=== PATIENT | male | born 1960 | race Caucasian/White ===

== ENCOUNTER 2019-01-25 08:34 | Inpatient (IN) | payer MEDICARE, MEDICAID ==
[~2019-01-25] VITALS: Ht 167.6 cm; Wt 77.7 kg
[2019-01-25] VITALS (7 sets, daily range): BP systolic 115–156; BP diastolic 68–81
[~2019-01-25 08:34] MED LIST: CYCL10TA45 PO; DCS100C PO; HYDR-3720 PO; HYDR1TAB PO; METH4TAB PO; OXYC1TAB87 PO; RANI75TA30 PO
--- OUTSIDE RECORDS SUMMARY | 2019-01-25 08:42 | XMS REPORT | Encounter Summary ---
Author Author [facility] Organization [facility] Address Unknown Phone Unavailable Care Team Providers Care [employer] Dean Name Role Phone Carroll Arce RN Unavailable Dilma Nam APRN Unavailable Michael Phelps MD Unavailable Yelitza He Unavailable Unavailable Taryn Enciso RN Unavailable Unavailable Presley Dumont MD PCP Reason for Referral * Radiology Services (Routine) Referred By Contact Referred To Contact Status Reason Specialty Diagnoses / Procedures Dilma Nam APRN [address] [place] [address] [facility] Med [address] [place] [address] Authorized Radiology Diagnoses Right upper quadrant abdominal pain P rocedures CT ABD/PELV WO/W CONTRAST Reason for Visit * Reason Comments Other history of hepatitis C Encounter Details Care Team Description Date Type Department Dilma Nam APRN [address] [place], [place] [id number] History of hepatitis C (Primary Dx); Right upper quadrant abdominal pain 01/21/2019 Office Visit [facility] [address] [place] [id number] Social History Date Tobacco Use Types Packs/Day Years Used Quit: 10/31/2016 Current Every Day Smoker Cigarettes 1.5 Smokeless Tobacco: Former User Comments: About a pack a week Alcohol Use Drinks/Week oz/Week Comments Yes 0 Cans of 0.0 once a month beer Sex Assigned at Date Recorded Not on file Industry Job Start Date Occupation Not on file Not on file Not on file Travel End Travel History Travel Start No recent travel history available. as of this encounter Last Filed Vital Signs Time Taken Vital Sign Reading 01/21/2019 12:00 PM MEDICAL STAFF SERVICES MANAGER Blood Pressure 136/82 01/21/2019 12:00 PM MEDICAL STAFF SERVICES MANAGER Pulse 77 01/21/2019 12:00 PM MEDICAL STAFF SERVICES MANAGER Temperature 36.8 C (98.2 F) 01/21/2019 12:00 PM MEDICAL STAFF SERVICES MANAGER Respiratory Rate 15 01/21/2019 12:00 PM MEDICAL STAFF SERVICES MANAGER Oxygen Saturation 98% - Inhaled Oxygen - Concentration 01/21/2019 12:00 PM MEDICAL STAFF SERVICES MANAGER Weight 74.8 kg (164 lb 12.8 oz) 01/21/2019 12:00 PM MEDICAL STAFF SERVICES MANAGER Height 167.6 cm (5' 6") 01/21/2019 12:00 PM MEDICAL STAFF SERVICES MANAGER Body Mass Index 26.6 in this encounter Functional Status Date of Assessment Functional Status Response 01/21/2019 Does the patient have a hearing impairment: Yes 01/21/2019 Does the patient have a visual impairment: Yes 01/21/2019 Does the patient have impaired ambulation: No 01/21/2019 Does the patient have an activity of daily living No (ADL) impairment: 01/21/2019 Does the patient have an instrumental activity of No daily living (IADL) impairment: Date of Assessment Cognitive Status Response 01/21/2019 Does the patient have a cognitive impairment: No as of this encounter Patient Instructions * Patient Instructions* Og Ward, SHAW - 01/21/2019 12:00 PM MEDICAL STAFF SERVICES MANAGER 1. Return to clinic in 6 months to see Dilma Nam APRN. 2. Please print external lab orders for April 2019. 3. Schedule CT scan. 4. Labs today. Patient Information: 1. Labs today. 2. Repeat Labs in April please. 3. Get Hepatitis B shot # 3 in March. 4. We ordered a CT scan of your abdomen and pelvis to better evaluate your abdominal pain. 5. Keep your appointment with your PCP tomorrow. We will send lab results to him. If you have completed labs or imaging today and have not received results within 10 days, please contact our office. General Instructions: How to reach us: Please send a [employer] message to the General Hepatology clinic or call us at [phone] and ask for Og Ward RN. How to get a medication refill: Please use the [employer] Refill request or contact your pharmacy directly to request medication refills. Please allow 48 hours. How to receive your test results: If you have signed up for [employer], you will receive your test results and messages from us this way. Otherwise, you will get a phone call or letter. If you are expecting results and have not heard from my office within 2 weeks of your testing, please send a [employer] message or call my office. Scheduling: Our Scheduling phone number is [phone].. Appointment Reminders on your cell phone: Make sure we have your cell phone number, and Text [facility] to [phone]. Support groups for many chronic illnesses are available through [employer]: [employer] or [phone]. Back office: Please request scope results from Dr Yarbrough in [place]. CAL STAFF SERVICES MANAGER in this encounter Plan of Treatment Order Schedule Name Priority Associated Diagnoses Expected: 01/21/2019 (Approximate), Expires: 01/22/2020 CT ABD/PELV WO/W CONTRAST Routine Right upper quadrant abdominal pain Expected: 05/16/2019 (Approximate), Expires: 01/21/2020 HEPATITIS B SURFACE AB Routine History of hepatitis C Right upper quadrant abdominal pain as of this encounter Results * PROTIME INR (PT) (01/21/2019 1:09 PM MEDICAL STAFF SERVICES MANAGER) INR 1.1 0.8 - 1.2 [facility] Specimen Blood Performing Organization Address City/State/Zipcode Phone Number MAIN [facility] [address] [place] [address] * COMPREHENSIVE METABOLIC PANEL (01/21/2019 1:09 PM MEDICAL STAFF SERVICES MANAGER) Sodium 140 137 - 147 MMOL/L [facility] Potassium 4.3 3.5 - 5.1 MMOL/L [facility] Chloride 104 98 - 110 MMOL/L [facility] Glucose 85 70 - 100 MG/DL [facility] Blood Urea Nitrogen 14 7 - 25 MG/DL [facility] Creatinine 0.91 0.4 - 1.24 MG/DL [facility] Calcium 9.4 8.5 - 10.6 MG/DL [facility] Total Protein 7.7 6.0 - 8.0 G/DL [facility] Total Bilirubin 0.4 0.3 - 1.2 MG/DL [facility] Albumin 4.2 3.5 - 5.0 G/DL [facility] Alk Phosphatase 78 25 - 110 U/L [facility] AST (SGOT) 16 7 - 40 U/L [facility] CO2 28 21 - 30 MMOL/L [facility] ALT (SGPT) 18 7 - 56 U/L [facility] Anion Gap 8 3 - 12 [facility] eGFR Non >60 >60 mL/min [facility] Comment: The eGFR is not validated for use in drug dosing adjustments.Continue to use estimated creatinine clearance per dosing reference text.Please contact the Clinical Pharmacist for questions. eGFR >60 >60 mL/min [facility] Comment: The eGFR is not validated for use in drug dosing adjustments.Continue to use estimated creatinine clearance per dosing reference text.Please contact the Clinical Pharmacist for questions. Specimen Blood Performing Organization Address City/State/Zipcode Phone Number [facility] [address] [place] [address] * CBC AND DIFF (01/21/2019 1:09 PM MEDICAL STAFF SERVICES MANAGER) White Blood Cells 10.9 4.5 - 11.0 K/UL [facility] RBC 4.73 4.4 - 5.5 M/UL [facility] Hemoglobin 14.5 13.5 - 16.5 GM/DL [facility] Hematocrit 42.9 40 - 50 % [facility] MCV 90.8 80 - 100 FL [facility] MCH 30.8 26 - 34 PG [facility] MCHC 33.9 32.0 - 36.0 G/DL [facility] RDW 13.6 11 - 15 % [facility] Platelet Count 365 150 - 400 K/UL [facility] MPV 7.6 7 - 11 FL [facility] Neutrophils 67 41 - 77 % [facility] Lymphocytes 21 (L) 24 - 44 % [facility] Monocytes 10 4 - 12 % [facility] Eosinophils 1 0 - 5 % [facility] Basophils 1 0 - 2 % [facility] Absolute Neutrophil Count 7.50 (H) 1.8 - 7.0 K/UL [facility] Absolute Lymph Count 2.30 1.0 - 4.8 K/UL [facility] Absolute Monocyte Count 1.00 (H) 0 - 0.80 K/UL [facility] Absolute Eosinophil Count 0.10 0 - 0.45 K/UL [facility] Absolute Basophil Count 0.10 0 - 0.20 K/UL [facility] Specimen Blood Performing Organization Address City/State/Zipcode Phone Number MAIN LAB [address] [place] [address] in this encounter Visit Diagnoses Diagnosis History of hepatitis C - Primary Personal history of other infectious and parasitic disease Right upper quadrant abdominal pain Abdominal pain, right upper quadrant in this encounter
--- OUTSIDE RECORDS SUMMARY | 2019-01-25 08:42 | XMS REPORT | Encounter Summary ---
Author Author [facility] Organization [facility] Address Unknown Phone Unavailable Care Team Providers Care Typesetting Machine Operator/Tender Name Role Phone Carroll Arce RN Unavailable Dilma Nam FINANCIAL AUDITOR Unavailable Michael Phelps MD Unavailable Yelitza He Unavailable Unavailable Taryn Enciso RN Unavailable Unavailable Presley Dumont MD PCP Reason for Visit * Reason Comments Other Encounter Details Care Team Description Date Type Department Dilma Nam APRN [address] [place] [address] Other 01/24/2019 Telephone [facility] [address] [place] [address] Social History Date Tobacco Use Types Packs/Day [...] travel history available. as of this encounter Functional Status Date of Assessment [...] cognitive impairment: No as of this encounter Miscellaneous Notes * Telephone Encounter - Domi Pendleton - 01/24/2019 9:31 AM ANIMATION DIRECTOR Pt [facility] requesting to speak with [facility] regarding upcoming CT scan and changing the location of that to [place]. Please return call to advise. ATION DIRECTOR in this encounter Plan of Treatment Not on fileas of this encounter Visit Diagnoses Not on filein this encounter
--- OUTSIDE RECORDS SUMMARY | 2019-01-25 08:42 | XMS REPORT | Encounter Summary ---
Author Author [facility] Organization [facility] Address Unknown Phone Unavailable Care Team Providers Care Journeyman Plumber Name Role Phone Carroll Arce RN Unavailable Dilma Nam APRN Unavailable Michael Phelps MD Unavailable Yelitza He Unavailable Unavailable Taryn Enciso RN Unavailable Unavailable Presley Dumont MD PCP Reason for Visit * Reason Comments Other Encounter Details Care Team Description Date Type Department Og Ward, SHAW Other 01/24/2019 Telephone [facility] [address] [address] Social History Date Tobacco Use Types [...] encounter Miscellaneous Notes * Telephone Encounter - Og Ward RN - 01/24/2019 10:21 AM TILLER MAN Patient unable to get CT done at . Orders will be faxed to [facility] in [place], [place] Phone: Fax: ER MAN in this encounter Plan of Treatment Not on fileas of this encounter Visit Diagnoses Not on filein this encounter
--- OUTSIDE RECORDS SUMMARY | 2019-01-25 08:42 | XMS REPORT | Encounter Summary ---
Author Author [facility] Organization [facility] Address Unknown Phone Unavailable Care Team Providers Care Tax Accountant Name Role Phone Carroll Arce RN Unavailable Dilma Nam WINDOW/DISTRIBUTION CLERK Unavailable Michael Phelps MD Unavailable Yelitza He Unavailable Unavailable Taryn Enciso RN Unavailable Unavailable Presley Dumont MD PCP Encounter Details Care Team Description Date Type Department Dilma Nam, WINDOW/DISTRIBUTION CLERK [address] [place], [place] [phone] Arrived 01/21/2019 Hospital Clinlab Encounter Main [facility] [address] [place] [address] Social History Date Tobacco Use Types Packs/Day [...] cognitive impairment: No as of this encounter Plan of Treatment Not on fileas of this encounter Procedures Comments Procedure Name Priority Date/Time Associated Diagnosis PROTIME INR (PT) Routine 01/21/2019 History of hepatitis C 1:09 PM SERVICE DELIVERY DIRECTOR Right upper quadrant abdominal pain CBC AND DIFF Routine 01/21/2019 History of hepatitis C 1:09 PM SERVICE DELIVERY DIRECTOR Right upper quadrant abdominal pain COMPREHENSIVE METABOLIC Routine 01/21/2019 History of hepatitis C PANEL 1:09 PM SERVICE DELIVERY DIRECTOR Right upper quadrant abdominal pain in this encounter Results * COMPREHENSIVE METABOLIC PANEL (01/21/2019 1:09 PM SERVICE DELIVERY DIRECTOR) Sodium 140 137 - 147 MMOL/L [facility] [...] Address City/State/Zipcode Phone Number [facility] [address] [place] [address] * CBC AND DIFF (01/21/2019 1:09 PM SERVICE DELIVERY DIRECTOR) White Blood Cells 10.9 4.5 - 11.0 [...] MAIN LAB Specimen Blood Performing Organization Address City[facility] Phone Number [facility] [address] [place] [address] * PROTIME INR (PT) (01/21/2019 1:09 PM SERVICE DELIVERY DIRECTOR) INR 1.1 0.8 - 1.2 [facility] Specimen Blood Performing Organization Address City/[facility]/Zipcode Phone Number [facility] [address] [place] [address] in this encounter Visit Diagnoses Diagnosis History of hepatitis C Personal history of other infectious and parasitic disease Right upper quadrant abdominal pain Abdominal pain, right upper quadrant in this encounter
--- OUTSIDE RECORDS SUMMARY | 2019-01-25 08:42 | XMS REPORT | Encounter Summary ---
Author Author [facility] Organization [facility] Address Unknown Phone Unavailable Care Team Providers Care Equipment Lead Name Role Phone Carroll Arce RN Unavailable Dilma Nam APRN Unavailable Michael Phelps MD Unavailable Yelitza He Unavailable Unavailable Taryn Enciso RN Unavailable Unavailable Presley Dumont MD PCP Reason for Visit * Reason Comments Navigation Follow Up Encounter Details Care Team Description Date Type Department Deneen Parham MD [address] [facility] [address] [phone] Navigation Follow Up 01/10/2019 Telephone [facility] [address] [address] Social History Date Tobacco Use Types Packs/Day [...] Status Date of Assessment Functional Status Response 08/21/2018 Does the patient have a hearing impairment: No 08/21/2018 Does the patient have a visual impairment: Yes 08/21/2018 Does the patient have impaired ambulation: No 08/21/2018 Does the patient have an activity of daily living No (ADL) impairment: 08/21/2018 Does the patient have an instrumental activity of No daily living (IADL) impairment: Date of Assessment Cognitive Status Response 08/21/2018 Does the patient have a cognitive impairment: No as of this encounter Miscellaneous Notes * Telephone Encounter - Shira Brown RN - 01/10/2019 1:10 PM LABOR REPRESENTATIVE Scheduled to see rad/onc, Dr. Diaz at [facility] in [place], [place] on at 10am. Nurse Queenie at that facility will call pt and discuss. Records faxed to [phone] R REPRESENTATIVE in this encounter Plan of Treatment Not on fileas of this encounter Visit Diagnoses Not on filein this encounter
--- OUTSIDE RECORDS SUMMARY | 2019-01-25 08:42 | XMS REPORT | Encounter Summary ---
Author Author [facility] Organization [facility] Address Unknown Phone Unavailable Care Team Providers Care Engineering Manager Name Role Phone Carroll Arce RN Unavailable Dilma Nam ACCOUNT INSTALLATION SPECIALIST Unavailable Michael Phelps MD Unavailable Yelitza He Unavailable Unavailable Taryn Enciso RN Unavailable Unavailable Presley Dumont MD PCP Reason for Visit * Reason Comments Patient Reminder Call Encounter Details Care Team Description Date Type Department Dilma Nam, ACCOUNT INSTALLATION SPECIALIST [address] [place] [address] Patient Reminder Call 01/16/2019 Telephone [facility] [address] [place] [address] Social History Date Tobacco Use [...] encounter Miscellaneous Notes * Telephone Encounter - Pretty Gaytan - 01/16/2019 1:43 PM NATIONAL VAN OWNER OPERATOR Pt confirmed appt. ONAL VAN OWNER OPERATOR in this encounter Plan of Treatment Not on fileas of this encounter Visit Diagnoses Not on filein this encounter
--- OUTSIDE RECORDS SUMMARY | 2019-01-25 08:42 | XMS REPORT | Encounter Summary ---
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 CT LARYNGOSCOPY DIRECT OPERATIVE W/BIOPSY DIRECT LARYNGOSCOPY WITH BIOPSY Encounter Details Care Team Description Date Type Department John Gonsalez MD [address] [place] [address] 01/03/2019 Anesthesia CA Operating Room Event [address] [place], [place] [id number] Anesthesia Record Responsible Anesthesiologist Anesthesia Start Time Anesthesia Stop Time Procedure Name Martin Medina MD 01/03/19 1058 01/03/19 1157 DIRECT LARYNGOSCOPY WITH BIOPSY (N/A ) Date Time Event Comment 1036 AN Equip Check 2018 1056 1058 Anes Start 1058 An Start Data 1058 In Room 1101 Out of Pre Procedure 1102 An Induction The patient was reevaluated immediately before moderate or deep sedation use and before anesthesia induction. 1104 An Intubation 1105 Anesthesia Ready 1111 Antibiotic Given 1118 Proc Start 1152 An Extubation 1152 an stop data 1156 Handoff to RN I completed my SBAR handoff to the receiving nurse. 1157 An Stop Meds Name Total fentaNYL PF (SUBLIMAZE) injection 150 mcg lidocaine (2%) 200 mg/10mL Injection 80 mg syringe propofol (DIPRIVAN) 200 mg/ 20 mL 200 mg injection (VIAL) rocuronium (ZEMURON) injection 30 mg ondansetron (ZOFRAN) injection 4 mg dexamethasone (DECADRON) 4 mg/mL 10 mg injection sugammadex (BRIDION) 100 mg/mL iv soln 150 mg ceFAZolin (ANCEF) injection 2 g dexmedetomidine (PRECEDEX) 20 mcg/5 mL 20 mcg (4 mcg/mL) injection lactated ringers infusion 800 mL * Name O2 N2O Inspired Sevoflurane Inspired Sevoflurane * No blood administrations on file. Removal Type Details Placement Wounds 01/13/17; 2158; Mid; Abdomen; Surgical 01/13/172158 by Nestor, (NOT for Incision; Surgical SHAW Quan Pressure Injuries) Peripheral 01/03/19; 0857; L; Forearm; 20 G; 1 01/03/19 0857 by KATERINE Mills RN 01/03/19 1152 by John Gonsalez MD ETT 01/03/19; 1104; Ventilated by mask with 01/03/19 1104 by oral airway (2); Video laryngoscopy; John Gonsalez MD Single-Lumen, Cuffed; 6mm; GlideScope; 3; Oral; 1-Full view of the glottis; 1 insertion attempt; Auscultation, ETCO2 Detector; 22 centimeters; 01/03/19; 1152 in this encounter Social History Date Tobacco Use Types Packs/Day [...] Visit Diagnoses Not on filein this encounter Administered Medications Action Date Dose Rate Site Medication Order MAR Action 01/03/2019 11:11 AM DRAGLINE OPERATOR 2 g ceFAZolin (ANCEF) injection Given INTRA-PROCEDURE MED, Starting Cat 01/03/19 at 1111, Until Cat 01/03/19 at 1203, Anesthesia Intra-op 01/03/2019 11:22 AM DRAGLINE OPERATOR 10 mg dexamethasone (DECADRON) injection Given Intravenous, INTRA-PROCEDURE MED, Starting Cat 01/03/19 at 1122, Until Cat 01/03/19 at 1203, Anesthesia Intra-op 01/03/2019 11:35 AM DRAGLINE OPERATOR 12 mcg dexmedetomidine (PRECEDEX) injection Given INTRA-PROCEDURE MED, Starting Cat 01/03/19 at 1133, Until Cat 01/03/19 at 1203, Anesthesia Intra-op 8 mcg Given 01/03/2019 11:33 AM DRAGLINE OPERATOR 01/03/2019 11:45 AM DRAGLINE OPERATOR 50 mcg fentaNYL citrate PF (SUBLIMAZE) Given injection INTRA-PROCEDURE MED, Starting Cat 01/03/19 at 1100, Until Cat 01/03/19 at 1203, Anesthesia Intra-op 50 mcg Given 01/03/2019 11:04 AM DRAGLINE OPERATOR 50 mcg Given 01/03/2019 11:00 AM DRAGLINE OPERATOR 01/03/2019 11:02 AM DRAGLINE OPERATOR 80 mg lidocaine (PF) injection Given INTRA-PROCEDURE MED, Starting Cat 01/03/19 at 1102, Until Cat 01/03/19 at 1203, Anesthesia Intra-op 01/03/2019 11:39 AM DRAGLINE OPERATOR 4 mg ondansetron (ZOFRAN) injection Given Intravenous, INTRA-PROCEDURE MED, Starting Cat 01/03/19 at 1139, Until Cat 01/03/19 at 1203, Anesthesia Intra-op 01/03/2019 11:04 AM DRAGLINE OPERATOR 50 mg propofol (DIPRIVAN) injection Given INTRA-PROCEDURE MED, Starting Cat 01/03/19 at 1102, Until Cat 01/03/19 at 1203, Anesthesia Intra-op 150 mg Given 01/03/2019 11:02 AM DRAGLINE OPERATOR 01/03/2019 11:03 AM DRAGLINE OPERATOR 30 mg rocuronium (ZEMURON) injection Given Intravenous, INTRA-PROCEDURE MED, Starting Cat 01/03/19 at 1102, Until Cat 01/03/19 at 1203, Anesthesia Intra-op 01/03/2019 11:39 AM DRAGLINE OPERATOR 150 mg sugammadex (BRIDION) injection Given Intravenous, INTRA-PROCEDURE MED, Starting Cat 01/03/19 at 1139, Until Cat 01/03/19 at 1203, Anesthesia Intra-op in this encounter
--- OUTSIDE RECORDS SUMMARY | 2019-01-25 08:42 | XMS REPORT | Encounter Summary ---
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] P rocedures MS LARYNGOSCOPY DIRECT OPERATIVE W/BIOPSY DIRECT LARYNGOSCOPY WITH BIOPSY Encounter Details Care Team Description Date Type Department Deneen Parham MD [address] [facility] [address] [address] DIRECT LARYNGOSCOPY WITH BIOPSY 01/03/2019 Surgery [place] Operating Room [address] [place] [id number] Social History Date Tobacco Use Types Packs/Day [...] Vital Signs Time Taken Vital Sign Reading 01/03/2019 12:30 PM WATER/WASTEWATER PROJECT ENGINEER Blood Pressure 110/74 01/03/2019 12:30 PM WATER/WASTEWATER PROJECT ENGINEER Pulse 70 01/03/2019 12:30 PM WATER/WASTEWATER PROJECT ENGINEER Temperature 36.4 C (97.6 F) - Respiratory Rate - 01/03/2019 12:30 PM WATER/WASTEWATER PROJECT ENGINEER Oxygen Saturation 95% - Inhaled Oxygen - Concentration 01/03/2019 8:56 AM WATER/WASTEWATER PROJECT ENGINEER Weight 74.3 kg (163 lb 12.8 oz) 01/03/2019 8:56 AM WATER/WASTEWATER PROJECT ENGINEER Height 167.6 cm (5' 6") 01/03/2019 8:56 AM WATER/WASTEWATER PROJECT ENGINEER Body Mass Index 26.44 in this encounter Functional Status Date of [...] cognitive impairment: No as of this encounter Medications at Time of Discharge Start Date End Date Medication Sig Dispensed Refills 12/17/2018 food supplemt, Take 1 Bottle 120 Bottle 11 lactose-reduced (BOOST by mouth HIGH PROTEIN) 0.06 gram- daily as 1 kcal/mL liqd needed. 11/07/2018 tiotropium-olodaterol Inhale two 4 g 11 (STIOLTO RESPIMAT) puffs by 2.5-2.5 mcg/actuation mouth into inhaler the lungs daily. 11/15/2018 umeclidinium-vilanterol Inhale one 1 each 11 (ANORO ELLIPTA) 62.5-25 puff by mouth mcg/actuation inhaler into the lungs daily. varenicline (CHANTIX Take 1 mg by 0 CONTINUING MONTH BOX) 1 mouth twice mg tablet daily. Take with 8 oz of water and after a meal. 01/03/2019 01/21/2019 HYDROcodone/acetaminophen Take one 10 tablet 0 (NORCO) 5/325 mg tablet tablet by mouth every 4 hours as needed 01/03/2019 01/21/2019 methylPREDNIsolone Take 21 tablet 0 (MEDROL DOSEPAK) 4 mg medication as tablet directed on package for 6 days. Take with food. as of this encounter Plan of Treatment Order Schedule Name Priority Associated Diagnoses ONCE for 1 Occurrences starting 01/03/2019 SURGICAL PATHOLOGY Routine Laryngeal mass as of this encounter Procedures Comments Procedure Name Priority Date/Time Associated Diagnosis SURGICAL PATHOLOGY 01/03/2019 11:29 AM WATER/WASTEWATER PROJECT ENGINEER DIRECT LARYNGOSCOPY WITH 01/03/2019 Laryngeal mass BIOPSY 11:20 AM WATER/WASTEWATER PROJECT ENGINEER TELEMETRY STRIPS-SCAN 01/03/2019 12:00 AM WATER/WASTEWATER PROJECT ENGINEER ECG-SCAN 12/18/2018 12:00 AM WATER/WASTEWATER PROJECT ENGINEER in this encounter Results * SURGICAL PATHOLOGY (01/03/2019 11:29 AM WATER/WASTEWATER PROJECT ENGINEER) PATHOLOGY REPORT [email or web address] Department of Pathology and Laboratory Medicine [address] [place] [id number] Surgical Pathology Office:[phone] :[phone] SURGICAL PATHOLOGY REPORT NAME: TRISTA YARBROUGH SURG PATH #: [id number] MR #: [id number] SPECIMEN CLASS: [facility] BILLING #: [id number] ALT ID #:LOCATION: [facility] DATE OF PROCEDURE: 01/03/2019 AGE:58 SEX: M DATE RECEIVED: 01/03/2019 : 1960TIME RECEIVED:11:29 PHYSICIAN: DENEEN PARHAM DATE OF REPORT: 01/07/2019 COPY TO:DATE OF PRINTIN01/07/2019 ############################## ############################## ############ Final Diagnosis: A. 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 B. Squamous epithelia, mid right cord, biopsy: At least carcinoma in situ, cannot rule out invasion. C. 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 D. 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 p16 negative Comment: Immunohistochemical stain performed on D1 show the tumor cells are negative for p16 supporting the above diagnosis. Pursuant to the [employer] Program at the [facility] Pathology Department, selected slides from this case have been concurrently reviewed by the following pathologist: Dr. Antionette Arzola who agrees with the final diagnosis. Attestation: By this signature, I attest that I have personally formulated the final interpretation expressed in this report and that the above diagnosis is based upon my examination of the slides and/or other material indicated in this report. +++ +++ ksw/01/04/2019 ############################## ############################## ############ Material Received: A: anterior right vocal cord B: mid right cord C: posterior right cord D: additional tissue right glottis for routine History: 58-year-old male with a history of laryngeal mass Gross Description: A. Received fresh, labeled with patient's name and "anterior right vocal cord" is a 0.5 x 0.3 x 0.2 cm aggregate of white-morales tissue fragments. The specimen is submitted entirely for frozen consultation with the remnant placed in cassette A1FS for permanent diagnosis. ([facility]) B. Received fresh, labeled with patient's name and "mid right cord" is a 0.7 x 0.3 x 0.2 cm aggregate of white-morales tissue fragments. The specimen is submitted entirely for frozen consultation with the remnant placed in cassette B1FS for permanent diagnosis. ([facility]) C. Received fresh, labeled with patient's name and "posterior right cord" is a 0.8 x 0.4 x 0.2 cm aggregate of white-morales tissue fragments. The specimen is submitted entirely for frozen consultation with the remnant placed in cassette C1FS for permanent diagnosis. ([facility])D. Received in formalin, labeled with the patient's name and "additional tissue right glottis" is a 1.4 x 0.3 x 0.2 cm aggregate of white-morales to pink-red tissue fragments. The fragments are filtered and centered entirely in cassette D1. ([facility]) [facility]/01/03/2019 Intraoperative Consultation: A1FS, squamous epithelia, "anterior right vocal cord", biopsy: At least carcinoma in situ, cannot rule out invasion. B1FS, squamous epithelia, "mid right cord", biopsy: At least carcinoma in situ, cannot rule out invasion. C1FS, squamous epithelia, "posterior right cord", biopsy: Squamous cell carcinoma, superficial invasion. Frozen section performed at the [facility], [address] [place] [id number]. Justo Richmond MD If immunohistochemical stains and/or in situ hybridization are cited in this report, the performance characteristics were determined by the Department of Pathology and Laboratory Medicine of the [facility] ([employer]) in compliance with CLIA'88 regulations.Some of these tests rely on the use of "analyte specific reagents" and are subject to specific labeling requirements by the FDA. Known positive and negative control tissues demonstrate appropriate staining.Results should be interpreted with caution given the likelihood of false negativity on decalcified specimens.This testing was developed by the Department of Pathology and Laboratory Medicine of the [facility].It has not been cleared or approved by the FDA.The FDA has determined that such clearance or approval is not necessary. Performing Organization Address City/State/Zipcode Phone Number [facility] [address] [place] [address] * TELEMETRY STRIPS-SCAN (01/03/2019 12:00 AM WATER/WASTEWATER PROJECT ENGINEER) Narrative Performed At Ordered by an unspecified provider. * ECG-SCAN (12/18/2018 12:00 AM WATER/WASTEWATER PROJECT ENGINEER) Narrative Performed At Ordered by an unspecified provider. in this encounter Visit Diagnoses Diagnosis Laryngeal mass Other diseases of larynx in this encounter Administered Medications Action Date Dose Rate Site Medication Order MAR Action 01/03/2019 11:39 AM WATER/WASTEWATER PROJECT ENGINEER 10 mL EPINEPHrine syringe Given INTRA-PROCEDURE MED, Starting Cat 01/03/19 at 1139, Until Cat 01/03/19 at 1153, Intra-op 01/03/2019 9:04 AM WATER/WASTEWATER PROJECT ENGINEER 1,000 mL 20 mL/hr lactated ringers infusion Given - New 1,000 mL, 1,000 mL, Intravenous, at 20 Bag mL/hr, CONTINUOUS, Starting Cat 01/03/19 at 0845, Until Cat 01/03/19 at 1457, Pre-Op lidocaine PF 1% (10 mg/mL) injection 0.1-2 mL 0.1-2 mL, Injection, NEEDED, Starting Cat 01/03/19 at 0941, Until Cat 01/03/19 at 1457, Other..., for IV insertion, Pre-Op in this encounter
--- OUTSIDE RECORDS SUMMARY | 2019-01-25 08:42 | XMS REPORT | Encounter Summary ---
Author Author [facility] Organization [facility] Address Unknown Phone Unavailable Care Team Providers Care Forestry Patrolman Name Role Phone Carroll Arce RN Unavailable Dilma Nam APRN Unavailable Michael Phelps MD Unavailable Yelitza He Unavailable Unavailable Taryn Enciso RN Unavailable Unavailable Presley Dumont MD PCP Encounter Details Care Team Description Date Type Department Deneen Parham MD [address] [facility] [address] [address] [phone] 01/16/2019 Telephone [facility] [address] [address] Social History Date Tobacco Use Types Packs/Day [...]
--- OUTSIDE RECORDS SUMMARY | 2019-01-25 08:42 | XMS REPORT | Clinical Summary ---
Author Author [facility] Organization [facility] Address Unknown Phone Unavailable Care Team Providers Care Director E Learning Name Role Phone Carroll Arce RN Unavailable Dilma Nam APRN Unavailable Michael Phelps MD Unavailable Yelitza He Unavailable Unavailable Taryn Enciso RN Unavailable Unavailable Presley Dumont MD PCP Source Comments Some departments are not documenting in the electronic medical record. If you do not see the information that you expected, contact Release of Information in the Health Information Management department at [phone] for further assistance in locating additional records.[facility] Allergies Comments Active Allergy Reactions Severity Noted Date In outside records. Pt unsure of the reaction Azithromycin HIVES Medium 12/21/2018 Levofloxacin HIVES Medium 12/23/2016 Medications End Date Status Medication Sig Dispensed Refills Start Date Active varenicline (CHANTIX Take 1 mg by 0 CONTINUING MONTH BOX) 1 mouth twice mg tablet daily. Take with 8 oz of water and after a meal. Active tiotropium-olodaterol Inhale two 4 g (STIOLTO RESPIMAT) puffs by 8 2.5-2.5 mcg/actuation mouth into inhaler the lungs daily. Active umeclidinium-vilanterol Inhale one 1 each (ANORO ELLIPTA) 62.5-25 puff by mouth 8 mcg/actuation inhaler into the lungs daily. Active food supplemt, Take 1 Bottle 120 Bottle lactose-reduced (BOOST by mouth 9 HIGH PROTEIN) 0.06 gram- daily as 1 kcal/mL liqd needed. Active ranitidine(+) (ZANTAC) Take 150 mg 0 150 mg tablet by mouth twice daily. 01/21/2019 Discontinued methylPREDNIsolone Take 21 tablet 0 (MEDROL DOSEPAK) 4 mg medication as 9 tablet directed on package for 6 days. Take with food. 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 Shortness of breath 11/18/2018 Other emphysema 11/18/2018 Hoarseness 11/18/2018 Abdominal pain 01/13/2017 Abscess of abdominal cavity 12/16/2016 Hx of right hemicolectomy 11/20/2016 Moderate malnutrition 11/11/2016 Sepsis 11/08/2016 Acute respiratory failure with hypercapnia 11/08/2016 Colon perforation 11/08/2016 Tubular adenoma of colon 11/01/2016 Tobacco abuse 02/17/2016 Chronic back pain 02/17/2016 Substance abuse 02/17/2016 Resolved Problems Problem Noted Date Resolved Date Hepatitis C 11/09/2016 07/19/2017 Cirrhosis 11/09/2016 12/19/2016 Hepatitis C virus infection without hepatic coma 02/17/2016 01/21/2019 Encounters Care Team Description Date Type Specialty Og Ward RN Other 01/24/2019 Telephone Hepatology Dilma Nam APRN Other 01/24/2019 Telephone Hepatology Dilma Nam APRN Arrived 01/21/2019 Hospital Lab Encounter Dilma Nam APRN History of hepatitis C (Primary Dx); Right upper quadrant abdominal pain 01/21/2019 Office Visit Hepatology Dilma Nam APRN Patient Reminder Call 01/16/2019 Telephone Hepatology Deneen Sepulveda MD 01/16/2019 Telephone Oncology Deneen Sepulveda MD Navigation Follow Up 01/10/2019 Telephone Oncology Deneen Sepulveda MD DIRECT LARYNGOSCOPY WITH BIOPSY 01/03/2019 Surgery Soni Leal APRN 01/03/2019 Anesthesia Event Deneen Sepulveda MD Laryngeal mass 01/03/2019 Hospital Encounter Deneen Sepulveda MD Preop cardiovascular exam (Primary Dx); 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) 12/21/2018 PAC Office Anesthesiology Visit Kenya Bhatti MA,[facility]-HUMAN DEVELOPMENT PROFESSOR Pharyngeal dysphagia 12/17/2018 Clinical Otolaryngology Support Deneen Sepulveda MD Tobacco abuse (Primary Dx); 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); Moderate malnutrition (HCC); Substance abuse (HCC); Hoarseness 12/17/2018 Office Visit Otolaryngology Deneen Sepulveda MD 12/17/2018 Hospital Radiology Encounter Deneen Sepulveda MD Laryngeal mass (Primary Dx) 12/17/2018 Prep for Case Otolaryngology Terry Wu PA-C 12/14/2018 Documentation Otolaryngology Deneen Sepulveda MD Navigation Assessment 12/14/2018 Telephone Oncology Deneen Sepulveda MD Vocal cord mass (Primary Dx) 12/12/2018 Orders Only Oncology Og Ward, RN Results 11/15/2018 Telephone Hepatology Talia Tello, GIANAD Medication Follow-up 11/15/2018 Documentation Hepatology Esther Jerez MD Records Request 11/09/2018 Telephone Pulmonology Esther Jerez MD Medication Problem 11/08/2018 Telephone Pulmonology Dilma Nam APRN 11/07/2018 Hospital Lab Encounter Esther Jerez MD Shortness of breath; Other emphysema (HCC); Hoarseness 11/07/2018 Office Visit Pulmonology Esther Jerez MD 11/07/2018 Hospital Encounter Dilma Nam APRN Patient Reminder Call 11/06/2018 Telephone Hepatology from Last 3 Months Immunizations Name Dates Previously Given Next Due Flu Vaccine 11/23/2016 Quadrivalent=>3 Yo (Preservative Free) HEP A/HEP B Combined 08/02/2016, 04/20/2016 Vaccine Hepatitis B Vaccine Adult 08/21/2018, 08/21/2018 3 Dose IM Family History Medical History Relation Name Comments Cancer Father Cancer Mother Relation Name Status Comments Father skin cancer Mother skin cancer Social History Date Tobacco Use Types Packs/Day Years Used Quit: 10/31/2016 Current Every Day Smoker Cigarettes 1.5 Smokeless Tobacco: Former User Tobacco Cessation: Ready to Quit: Yes; Counseling Given: Yes Comments: About a pack a week Alcohol Use Drinks/Week oz/Week Comments Yes 0 Cans of 0.0 once a month beer Sex Assigned at Date Recorded Not on file Industry Job Start Date Occupation Not on file Not on file Not on file Travel End Travel History Travel Start No recent travel history available. Last Filed Vital Signs Time Taken Vital Sign Reading 01/21/2019 12:00 PM SALES SERVICE REPRESENTATIVE Blood Pressure 136/82 01/21/2019 12:00 PM SALES SERVICE REPRESENTATIVE Pulse 77 01/21/2019 12:00 PM SALES SERVICE REPRESENTATIVE Temperature 36.8 C (98.2 F) 01/21/2019 12:00 PM SALES SERVICE REPRESENTATIVE Respiratory Rate 15 01/21/2019 12:00 PM SALES SERVICE REPRESENTATIVE Oxygen Saturation 98% - Inhaled Oxygen - Concentration 01/21/2019 12:00 PM SALES SERVICE REPRESENTATIVE Weight 74.8 kg (164 lb 12.8 oz) 01/21/2019 12:00 PM SALES SERVICE REPRESENTATIVE Height 167.6 cm (5' 6") 01/21/2019 12:00 PM SALES SERVICE REPRESENTATIVE Body Mass Index 26.6 Plan of Treatment Health Maintenance Due Date Last Done Comments PHYSICAL (COMPREHENSIVE) 1966 EXAM DTAP/TDAP VACCINES (1 - 1977 Tdap) COLORECTAL CANCER 2009 SCREENING SHINGLES RECOMBINANT 2009 VACCINE (1 of 2) INFLUENZA VACCINE 06/20/2019 11/23/2016 HIV SCREENING Completed 02/17/2016 Implants Device Identifier Shelf Expiration Date Model / Serial / Lot Implanted Type Area Manufactur er Orthopedic Walter Orthopedic Right: Hip Walter Plate Plate Left: Hand Screw Screw Neck Screw Screw Back Procedures Comments Procedure Name Priority Date/Time Associated Diagnosis COMPREHENSIVE METABOLIC Routine 01/21/2019 History of hepatitis C PANEL 1:09 PM SALES SERVICE REPRESENTATIVE Right upper quadrant abdominal pain CBC AND DIFF Routine 01/21/2019 History of hepatitis C 1:09 PM SALES SERVICE REPRESENTATIVE Right upper quadrant abdominal pain PROTIME INR (PT) Routine 01/21/2019 History of hepatitis C 1:09 PM SALES SERVICE REPRESENTATIVE Right upper quadrant abdominal pain SURGICAL PATHOLOGY 01/03/2019 11:29 AM SALES SERVICE REPRESENTATIVE DIRECT LARYNGOSCOPY WITH 01/03/2019 Laryngeal mass BIOPSY 11:20 AM SALES SERVICE REPRESENTATIVE TELEMETRY STRIPS-SCAN 01/03/2019 12:00 AM SALES SERVICE REPRESENTATIVE ECG-SCAN 12/18/2018 12:00 AM SALES SERVICE REPRESENTATIVE CT CHEST W CONTRAST Routine 12/17/2018 Vocal cord mass 7:44 AM SALES SERVICE REPRESENTATIVE CT NECK W/CONTRAST Routine 12/17/2018 Vocal cord mass 7:44 AM SALES SERVICE REPRESENTATIVE COMPREHENSIVE METABOLIC Routine 11/07/2018 Chronic hepatitis C PANEL 11:26 AM SALES SERVICE REPRESENTATIVE without hepatic coma (HCC) HEPATITIS C VIRAL LOAD Routine 11/07/2018 Chronic hepatitis C PCR QUANT 11:26 AM SALES SERVICE REPRESENTATIVE without hepatic coma (HCC) PFT COMPLETE PULM Routine 11/07/2018 Tobacco abuse FUNCTION 8:18 AM SALES SERVICE REPRESENTATIVE from Last 3 Months Results * PROTIME INR (PT) (01/21/2019 1:09 PM SALES SERVICE REPRESENTATIVE) INR 1.1 0.8 - 1.2 [facility] Specimen Blood Performing Organization Address City/State/Zipcode Phone Number MAIN [facility] [address] [place] [address] * CBC AND DIFF (01/21/2019 1:09 PM SALES SERVICE REPRESENTATIVE) White Blood Cells 10.9 4.5 - 11.0 [...] MAIN LAB Specimen Blood Performing Organization Address [facility] Phone Number [facility] [address] [place] [address] * COMPREHENSIVE METABOLIC PANEL (01/21/2019 1:09 PM SALES SERVICE REPRESENTATIVE) Only the most recent of 2 results within the time period is included. Sodium 140 137 - 147 MMOL/L [facility] [...] for questions. Specimen Blood Performing Organization Address [facility] Phone Number [facility] [address] [place] [address] * SURGICAL PATHOLOGY (01/03/2019 11:29 AM SALES SERVICE REPRESENTATIVE) PATHOLOGY REPORT [facility] [email or web address] Department of Pathology and Laboratory Medicine [address] [place] [address] Surgical Pathology Office:[phone] :[phone] SURGICAL PATHOLOGY REPORT NAME: TRISTA YARBROUGH SURG PATH #: [id number] MR #: [id number] SPECIMEN CLASS: [facility] BILLING #: [id number] ALT ID #:LOCATION: [id number] DATE OF PROCEDURE: 01/03/2019 AGE:58 SEX: M DATE RECEIVED: 01/03/2019 : 1960TIME RECEIVED:11:29 PHYSICIAN: DENEEN SEPULVEDA DATE OF REPORT: 01/07/2019 COPY TO:DATE OF [...] supporting the above diagnosis. Pursuant to the Data Librarian Program at the [facility] Pathology Department, selected slides from this [...] material indicated in this report. +++ +++ jorge/01/04/2019 ############################## ############################## ############ Material Received: A: anterior [...] placed in cassette A1FS for permanent diagnosis. ([facility]) B. Received fresh, labeled with patient's name and "mid right cord" is a 0.7 x 0.3 x 0.2 cm aggregate of white-morales tissue fragments. The specimen is submitted entirely for frozen consultation with the remnant placed in cassette B1FS for permanent diagnosis. ([facility]) C. Received fresh, labeled with patient's name and "posterior right cord" is a 0.8 x 0.4 x 0.2 cm aggregate of white-morales tissue fragments. The specimen is submitted entirely for frozen consultation with the remnant placed in cassette C1FS for permanent diagnosis. ([facility])D. Received in formalin, labeled with the patient's name and "additional tissue right glottis" is a 1.4 x 0.3 x 0.2 cm aggregate of white-morales to pink-red tissue fragments. The fragments are filtered and centered entirely in cassette D1. ([facility]) [facility]/01/03/2019 Intraoperative Consultation: A1FS, squamous epithelia, "anterior right vocal cord", biopsy: At least carcinoma in situ, cannot rule out invasion. B1FS, squamous epithelia, "mid right cord", biopsy: At least carcinoma in situ, cannot rule out invasion. C1FS, squamous epithelia, "posterior right cord", biopsy: Squamous cell carcinoma, superficial invasion. Frozen section performed at the [facility], [facility], [address] [place] [address]. Justo Richmond MD If immunohistochemical stains and/or in situ hybridization are cited in this report, the performance characteristics were determined by the Department of Pathology and Laboratory Medicine of the [facility] ([employer]) in compliance with CLIA'88 regulations.Some [...] of Pathology and Laboratory Medicine of the [facility].It has not been cleared or approved by the FDA.The FDA has determined that such clearance or approval is not necessary. Performing Organization Address City/State/Zipcode Phone Number [facility] [address] [place] [address] * TELEMETRY STRIPS-SCAN (01/03/2019 12:00 AM SALES SERVICE REPRESENTATIVE) Narrative Performed At Ordered by an unspecified provider. * ECG-SCAN (12/18/2018 12:00 AM SALES SERVICE REPRESENTATIVE) Narrative Performed At Ordered by an unspecified provider. * CT CHEST W CONTRAST (12/17/2018 7:44 AM SALES SERVICE REPRESENTATIVE) Impressions Performed At 1. No evidence of metastatic disease to the thorax. Stable pulmonary nodules, [facility] RES[facility] several unchanged for almost 2 years. No new or enlarging nodule. Attention on one-year follow-up CT or per clinical protocol to reassess. 2. Incompletely imaged fluid collection along the right hepatic lobe extending inferiorly off the [id number]. This is of uncertain etiology but could represent loculated ascites, abscess or biloma. Advise dedicated abdomen and pelvis CT with contrast for further characterization. #Follow Finalized by Ranjit Prajapati M.D. on 12/17/2018 8:30 AM. Dictated by Ranjit Prajapati M.D. on 12/17/2018 8:18 AM. Narrative Performed At CT CHEST W CONTRAST [facility] INDICATION:right vocal cord mass Comparison: January 13, 2017. TECHNIQUE: Following the uneventful administration of intravenous contrast, axial CT sections were obtained through the lungs and upper abdomen. Coronal and sagittal multiplanar reconstructions were also obtained. FINDINGS: Lungs and Airways: Mild centrilobular emphysema with mid and upper lung zone predominance. Dependent atelectasis. 5 mm right lower lobe subpleural nodule, stable from remote prior CT in 2016 as seen on image 75 of the coronal series. Stable 4 mm right lower lobe pulmonary nodule image 60 series 3, unchanged since at least January 13, 2017. Secretions in the central airways. Pleura: The pleural spaces are normal. Heart and Mediastinum: The thyroid gland is of normal size and attenuation. No axillary or supraclavicular lymphadenopathy. No mediastinal, hilar or retrocrural lymphadenopathy. Cardiomegaly. Coronary artery and aortic calcification indicates atherosclerosis. Abdomen: Cholecystectomy clips. Subcapsular, oblong fluid collection extending along the right hepatic lobe is incompletely imaged measuring up to 4.5 x 2.4 cm image 54 series 2. Postsurgical changes in the right upper quadrant Bones and Soft Tissues: Old rib fractures. Procedure Note Interface, Radiant Results - 12/17/2018 8:33 AM SALES SERVICE REPRESENTATIVE CT CHEST W CONTRAST INDICATION: right vocal cord mass Comparison: January 13, 2017. TECHNIQUE: Following the uneventful administration of intravenous contrast, axial CT sections were obtained through the lungs and upper abdomen. Coronal and sagittal multiplanar reconstructions were also obtained. FINDINGS: Lungs and Airways: Mild centrilobular emphysema with mid and upper lung zone predominance. Dependent atelectasis. 5 mm right lower lobe subpleural nodule, stable from remote prior CT in 2016 as seen on image 75 of the coronal series. Stable 4 mm right lower lobe pulmonary nodule image 60 series 3, unchanged since at least January 13, 2017. Secretions in the central airways. Pleura: The pleural spaces are normal. Heart and Mediastinum: The thyroid gland is of normal size and attenuation. No axillary or supraclavicular lymphadenopathy. No mediastinal, hilar or retrocrural lymphadenopathy. Cardiomegaly. Coronary artery and aortic calcification indicates atherosclerosis. Abdomen: Cholecystectomy clips. Subcapsular, oblong fluid collection extending along the right hepatic lobe is incompletely imaged measuring up to 4.5 x 2.4 cm image 54 series 2. Postsurgical changes in the right upper quadrant Bones and Soft Tissues: Old rib fractures. IMPRESSION 1. No evidence of metastatic disease to the thorax. Stable pulmonary nodules, several unchanged for almost 2 years. No new or enlarging nodule. Attention on one-year follow-up CT or per clinical protocol to reassess. 2. Incompletely imaged fluid collection along the right hepatic lobe extending inferiorly off the [id number]. This is of uncertain etiology but could represent loculated ascites, abscess or biloma. Advise dedicated abdomen and pelvis CT with contrast for further characterization. #Follow Finalized by Ranjit Prajapati M.D. on 12/17/2018 8:30 AM. Dictated by Ranjit Prajapati M.D. on 12/17/2018 8:18 AM. Performing Organization Address City/State/Zipcode Phone Number [facility] * CT NECK W/CONTRAST (12/17/2018 7:44 AM SALES SERVICE REPRESENTATIVE) Impressions Performed At 1. Nodular thickening of the right true vocal cord extending to the anterior [facility] RES[facility] commissure. Differential considerations are mucosal neoplasm, polyps, or inflammation/dysplasia. Direct visualization is suggested. 2. No neck lymphadenopathy. 3. Centrilobular emphysema Finalized by Da Bang M.D. on 12/17/2018 9:25 AM. Dictated by Da Bang M.D. on 12/17/2018 9:13 AM. Narrative Performed At CT neck [facility] RES[facility] History: Right vocal cord mass. Technique: Multiple contiguous axial images were obtained through the neck following the administration of Omnipaque 350 contrast. Coronal and sagittal reconstructions were performed from the source data. Findings: There are no prior studies of the neck for comparison. Brain and Orbits: There is no intracranial or orbital mass in the visualized portions of the brain or orbits. The lenses are thin compatible with prior surgery. Sinuses and Mastoids: There is minimal ethmoid sinus mucosal thickening mastoid air cells are clear. Suprahyoid Neck: The patient is edentulous along the maxilla. There are multiple absent mandibular teeth. No oral cavity or oropharyngeal mass. Infrahyoid Neck: There is nodular thickening involving the right true vocal cord. There is extension anteriorly to the area of the anterior commissure. There is mild narrowing of the airway at the level of the true cords. Lymph Nodes: No lymphadenopathy. Parotid and Submandibular Glands: Unremarkable Thyroid: Unremarkable Vasculature: Unremarkable. Incidental note is made of origination of the left vertebral artery from the aortic arch which is a normal variant. Osseous Structures: Prior C3-C6 ACDF. No aggressive or destructive osseous lesion. Thoracic inlet: There is centrilobular emphysema within the visualized portions of the lungs. Procedure Note Interface, Radiant Results - 12/17/2018 9:28 AM SALES SERVICE REPRESENTATIVE CT neck History: Right vocal cord mass. Technique: Multiple contiguous axial images were obtained through the neck following the administration of Omnipaque 350 contrast. Coronal and sagittal reconstructions were performed from the source data. Findings: There are no prior studies of the neck for comparison. Brain and Orbits: There is no intracranial or orbital mass in the visualized portions of the brain or orbits. The lenses are thin compatible with prior surgery. Sinuses and Mastoids: There is minimal ethmoid sinus mucosal thickening mastoid air cells are clear. Suprahyoid Neck: The patient is edentulous along the maxilla. There are multiple absent mandibular teeth. No oral cavity or oropharyngeal mass. Infrahyoid Neck: There is nodular thickening involving the right true vocal cord. There is extension anteriorly to the area of the anterior commissure. There is mild narrowing of the airway at the level of the true cords. Lymph Nodes: No lymphadenopathy. Parotid and Submandibular Glands: Unremarkable Thyroid: Unremarkable Vasculature: Unremarkable. Incidental note is made of origination of the left vertebral artery from the aortic arch which is a normal variant. Osseous Structures: Prior C3-C6 ACDF. No aggressive or destructive osseous lesion. Thoracic inlet: There is centrilobular emphysema within the visualized portions of the lungs. IMPRESSION 1. Nodular thickening of the right true vocal cord extending to the anterior commissure. Differential considerations are mucosal neoplasm, polyps, or inflammation/dysplasia. Direct visualization is suggested. 2. No neck lymphadenopathy. 3. Centrilobular emphysema Finalized by Da Bang M.D. on 12/17/2018 9:25 AM. Dictated by Da Bang M.D. on 12/17/2018 9:13 AM. Performing Organization Address City/[facility] Phone Number RAD RESULTS * HEPATITIS C VIRAL LOAD PCR QUANT (11/07/2018 11:26 AM SALES SERVICE REPRESENTATIVE) Hepatitis C PCR HCV RNA Not Detected, <12 <12 IU/ML MAIN LAB Quantitative IU/mL Comment: The test method detects HCV viral load using the [employer] RealTime assay. Please correlate results with the clinical status of the patient. Log 10 HCV <1.08 <1.08 IU/mL MAIN LAB Specimen Blood Performing Organization Address City/[facility]/Zipcode Phone Number MAIN LAB [address] [place] [address] * PFT COMPLETE PULM FUNCTION (11/07/2018 8:18 AM SALES SERVICE REPRESENTATIVE) FVC-Pre 5.22 L [facility] FVC-%Pred-pre 119 % [facility] FVC-Post 5.47 L [facility] FVC-%Pred-Post 124 % [facility] FEV1-Pre 3.22 L [facility] FEV1-%Pred-Pre 97 % [facility] FEV1-Post 3.55 L [facility] FEV1-%Pred-Post 106 % [facility] FEV1/FVC-Pre 62 % [facility] [id number] 66 % [facility] [id number] 1.50 L/sec [facility] [id number]-%Pred-Pre 53 % [facility] [id number] 2.26 L/sec [facility] [id number]-%Pred-Post 81 % [facility] PEF-Post 401.2 L/min [facility] RVPleth-Pre 2.02 L [facility] RVPleth-%Pred-Pre 96 % [facility] TLCPleth-Pre 7.37 L [facility] TLCPleth-%Pred-Pre 113 % [facility] DLCOunc-Pre 21.01 ml/min/mmHg [facility] DLCOunc-%Pred-Pre 76 % [facility] DLCOunc-#SD -1.079 ml/min/mmHg [facility] DLVA-Pred 4.41 ml/min/mmHg/L [facility] DLVA-Pre 3.22 ml/min/mmHg/L [facility] DLVA-%Pred-Pre 73 % [facility] DLVA-SD 0.73 ml/min/mmHg/L [facility] DLVA-LLN 2.95 ml/min/mmHg/L [facility] DLVA-ULN 5.87 ml/min/mmHg/L [facility] DLVA-#SD -1.624 ml/min/mmHg/L [facility] [id number] 60 % [facility] Narrative Performed At Performing Organization Address City/State/Zipcode Phone Number [facility] [address] [place] [address] from Last 3 Months Insurance Payer Benefit Subscriber ID Type Phone Address Plan / Group COVENTRY MEDICARE COVENTRY xxxxxxxxxxx Medicare [place], [place] Advance Directives Patient has advance care planning documents, and code status on file. For more information, please contact: [facility] [address] [place] [address] Date Inactivated Comments Code Status Date Activated 01/20/2017 7:11 PM Full Code 01/13/2017 10:19 PM Provider has discussed Code Status No, discussion not w/Patient or Family? necessary based on Dx 12/09/2016 3:13 PM Full Code 11/20/2016 10:57 PM Provider has discussed Code Status No, more discussion w/Patient or Family? needed 11/20/2016 4:43 PM Full Code 11/01/2016 11:48 AM Provider has discussed Code Status No, discussion not w/Patient or Family? necessary based on Dx
--- OUTSIDE RECORDS SUMMARY | 2019-01-25 08:43 | XMS REPORT | Encounter Summary ---
Author Author [facility] Organization [facility] Address Unknown Phone Unavailable Care Team Providers Care Talent Acquisition Coordinator Name Role Phone Carroll Arce RN Unavailable Dilma Nam APRN Unavailable Michael Phelps MD Unavailable Yelitza He Unavailable Unavailable Taryn Enciso RN Unavailable Unavailable Presley Dumont MD PCP Reason for Visit * Reason Comments Mass * Consult, Test & Treat (Routine) Referred By Contact Referred To Contact Status Reason Specialty Diagnoses / Procedures Deneen Parham MD [address] [facility] [address] [place] [id number] No Auth Needed Otolaryngology Diagnoses 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/Dr Barney Still/CT neck and Chest at prior to appt/RW P rocedures NEW PATIENT Encounter Details Care Team Description Date Type Department Deneen Parham MD [address] [facility] Lvl [address] [place] [phone] Tobacco abuse (Primary Dx); 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); Moderate malnutrition (HCC); Substance abuse (HCC); Hoarseness 12/17/2018 Office Visit [facility] Physicians - ENT [address] [place] [address] Social History Date Tobacco Use [...] Vital Signs Time Taken Vital Sign Reading 12/17/2018 8:44 AM BROKER ASSOCIATE Blood Pressure 135/82 12/17/2018 8:44 AM BROKER ASSOCIATE Pulse 76 - Temperature - - Respiratory Rate - - Oxygen Saturation - - Inhaled Oxygen - Concentration 12/17/2018 8:44 AM BROKER ASSOCIATE Weight 72.6 kg (160 lb) 12/17/2018 8:44 AM BROKER ASSOCIATE Height 167.6 cm (5' 6") 12/17/2018 8:44 AM BROKER ASSOCIATE Body Mass Index 25.82 in this encounter Functional Status Date of [...] this encounter Patient Instructions * Patient Instructions* Brittany Samuel RN - 12/17/2018 10:00 AM BROKER ASSOCIATE .GENERAL INSTRUCTIONS FOR SURGERY Your Surgical Procedure is scheduled on January [address] Deneen Parham MD Your surgery will take place at [facility]. The address is [address] [place] [address], [place] [address]. [facility] is located on [address] [place] [address] between [facility] and [facility], near the main hospital building. The main entrance for [facility] is on [facility]. Parking for [facility] is in the [address] parking garage, which is just past the main entrance of [facility] on [facility]. Please park in the P[address] parking garage. ? Enter the [place] [facility] through the 1st floor main entrance. ? Check in with admitting on 1st floor. (If you are pre-registered you will go directly to 3rd floor to surgery.) If you come to the Hospital prior to Surgery for a Pre-Anesthesia Clinic visit, they will pre-register you at that time. Pre-Anesthesia can be reached at . ? Check in with surgical medical reception specialist center after being registered ? Will be escorted by staff up to OR. ? Family will need to expect to wait on 1st level in common areas except during certain points in the visit when they can accompany you. ? You will be contacted between 2:30 and 4:30 on the last business day before the procedure to confirm your arrival time by the Surgery Scheduling Department. Preparing for Surgery ? Hold Vitamin E, Vitamin A, Fish oil, multivitamin, and herbal supplements for 14 days prior to surgery. Hold Ibuprofen (Advil, Motrin), Naproxen (Aleve), and any other Non-Steroidal Anti-inflammatory medications for 7 days prior to surgery. If you take aspirin or any blood thinners, please contact the prescribing physician for recommendation regarding holding these medications prior to surgery. Do not stop taking any heart medications or aspirin without seeking the Approval of your Torch Heater. ? Refrain from smoking two weeks before and two weeks after surgery. Nicotine and tobacco smoke delays healing and can result in scarring. This is the perfect time to give up the habit. ? Do not eat or drink anything, including water, after midnight the night before your surgery. ? Arrange for someone to take you home from the hospital. You will not be allowed to drive or leave alone. Arrange to have someone to be with you the first 24 hours following surgery. The Day of Surgery ? Do not eat or drink anything, including water, after midnight the morning of surgery. Essential medication may be taken with a sip of water. ? Wear loose-fitting clothes that fasten in front or back. Avoid clothing that pulls over your head. ? Leave all valuables at home; do not wear jewelry. ? Do not wear any facial or eye make-up. Avoid nail slovak. ? You may wear glasses but do not wear contact lenses. ? If you wear dentures, keep them in. ? Bring your ID and insurance card with you. DONT TAKE CHANCES! If you are concerned about anything you consider significant, call us at [phone] business hours and ask for your nurse, or the on-call nurse. After hours ask to speak to the ENT resident enterprise application developer. Thank you! ER ASSOCIATE in this encounter Progress Notes * Deneen Parham MD - 12/17/2018 10:00 AM BROKER ASSOCIATE Chief Complaint Patient presents with Mass History of Present Illness: Skyler Yarbrough is a 58 y.o. year old male evaluated on 12/17/2018, in the Otolaryngology-Head and Neck Surgery Clinic at the [facility]. The patient was referred by Dr. Still for evaluation of right vocal cord lesion. The patient was seen by Dr. Still last week and was referred to for further evaluation and management. The patient reports that since January 2018, he has had voice changes. He reports some drooling and dysphagia since that time. He has smoked 1/2 pack of cigarettes per day since he can remember and reports smoking 1 pack per week now. He states that when he smokes his throat izaguirre, but otherwise he does not have a sore throat. He denies hemoptysis or stridor. He denies any new neck lumps/bumps. He has had a cervical spine fusion a few years ago with a scar from the neck incision on the left side. Past Medical/Surgical History He has a past medical history of Basal cell carcinoma, Chronic back pain, Colon polyps, Hepatitis C, Melanoma (HCC), and Opiate use. HCV treated with Harvoni - tolerated well. Past surgical history reviewed and it is noncontributory. Past Family/Social History Family history reviewed and it is noncontributory. He reports that he has been smoking cigarettes. He has been smoking about 1.50 packs per day. He has quit using smokeless tobacco. He reports that he drinks alcohol. He reports that he uses drugs. Drug: Marijuana. Frequency: 5.00 times per week. Medications/Allergies/Immunizations Review of Systems Constitutional: Negative. HENT: Positive for voice change. Eyes: Negative. Respiratory: Negative. Cardiovascular: Negative. Gastrointestinal: Negative. Endocrine: Negative. Genitourinary: Negative. Musculoskeletal: Negative. Skin: Negative. Allergic/Immunologic: Negative. Neurological: Negative. Hematological: Negative. Psychiatric/Behavioral: Negative. Objective: tiotropium-olodaterol (STIOLTO RESPIMAT) 2.5-2.5 mcg/actuation inhaler Inhale two puffs by mouth into the lungs daily. umeclidinium-vilanterol (ANORO ELLIPTA) 62.5-25 mcg/actuation inhaler Inhale one puff by mouth into the lungs daily. varenicline (CHANTIX CONTINUING MONTH BOX) 1 mg tablet Take 1 mg by mouth twice daily. Take with 8 oz of water and after a meal. Vitals: 12/17/18 0844 BP: 135/82 Pulse: 76 Weight: 72.6 kg (160 lb) Height: 167.6 cm (66") Body mass index is 25.82 kg/m. General: Well-developed, well-nourished Communication and Voice: Clear pitch and clarity Hearing: Hearing adequate for verbal communication bilaterally Inspection: Normocephalic and atraumatic without mass or lesion Palpation: Facial skeleton intact without bony stepoffs Parotid Glands: No mass or tenderness Facial Strength: Facial motility symmetric and full bilaterally Pinna: External ear intact and fully developed External canal: Canal is patent with intact skin Tympanic Membrane: Clear and mobile External nose: No scar or anatomic deformity Internal Nose: Septum intact and midline. No edema, polyp, or rhinorrhea. TMJ: No pain to palpation with full mobility Oral cavity, Lips, Teeth, and Gums: Mucosa and teeth intact and viable, No lesions, masses or ulcers Oropharynx: No erythema or exudate, no masses or ulcerations, non-obstructive tonsils Nasopharynx: No mass or lesion with intact mucosa Hypopharynx: Not well visualized secondary to gagging Larynx: Not well visualized secondary to gagging Neck, Trachea, Lymphatics: Midline trachea without mass or lesion, no lymphadenopathy; well-healed left neck scar Thyroid: No mass or nodularity Eyes: No nystagmus with equal extraocular motion bilaterally Neuro/Psych/Balance: Patient oriented and appropriate in interaction; Appropriate mood and affect; Gait is intact with no imbalance; Cranial nerves I -XII are intact Respiratory effort: Equal inspiration and expiration without stridor Peripheral Vascular: Warm extremities with equal pulses Procedure: Flexible fiberoptic nasopharyngoscopy/laryngoscopy Indications: Need for detailed exam, hyperactive gag reflex, inadequate mirror visualization. Surgeon: Adryan Camacho MD Procedure note/findings: After informed discussion of the risks, benefits, and alternatives after indications as noted above, a fiberoptic nasopharyngoscopy and laryngoscopy was recommended for above indications, and the patient consented to this. Nasal cavities were topically anesthetized and decongested with 4% lidocaine and Afrin solutions after which a flexible scope was easily advanced without difficulty into the left and right nasal cavities as well as into the nasopharynx. Nasal cavities were intact without gross mass or lesion. Nasopharynx, similarly, revealed no mass lesion or granularity. There was no ulceration. There was no gross asymmetry. Fossa of Rosenmueller was intact bilaterally. The eustachian tube orifices were intact bilaterally and patent. Posterior and lateral nasal pharyngeal anthony were intact and symmetric without ulceration, mass, or granularity. Scope was now advanced distally. Visible oropharynx including lateral anthony and tongue base was clear without lesion. Larynx and hypopharynx were examined. True vocal cords move. Arytenoids in good position. Right TVC demonstrates an exophytic mass that appears to span the mid-cord to the anterior commissure. The left TVC is WNL. Hypopharynx was clear without asymmetry. Airway was patent. The scope was then withdrawn and removed. He tolerated this well. RADIOLOGIC REVIEW: CT neck demonstrates a right TVC mass that is exophytic and spans the mid-cord to the anterior commissure IMPRESSION: My impression is that Mr. Yarbrough has right TVC lesion which I would tentatively stage as a T2N0M0 based on physical examination and imaging. PLAN: After review of the various options including the risks, benefits and alternatives, Mr. Yarbrough has opted to proceed with surgery as part of his overall management which I believe is reasonable for his condition. This will include direct laryngoscopy and biopsy. He will need PAT clearance as prior to the procedure. I have explained to him that once pathology comes back , we will review his case at tumor board. Should the pathology come back as cancer, I explained that because he has many medical issues, I would lean toward radiation for treatment. We will hence proceed with scheduling surgery in the near future as well as order appropriate preoperative testing and evaluation prior to surgery. I believe that Mr. Yarbrough has a good understanding of the issues involved and I answered all of his questions. ATTESTATION I personally performed the cardoza portions of the E/M visit, discussed case with resident and concur with resident documentation of history, physical exam, assessment, and treatment plan unless otherwise noted. HPI: A pleasant 58 y/o M with 10 month long history of hoarseness, no airway concerns. PMH consistent with treated hep C, ascites, COPD, not on O2. Smoker. 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 Plan: PAT, DL and biopsy, will discuss treatment afterwards, TB Staff name: Deneen Parham MD Date: 12/17/2018 ER ASSOCIATE in this encounter Miscellaneous Notes * Addendum Note - Edouard Henry MD - 12/17/2018 10:00 AM BROKER ASSOCIATE Addended by: EDOUARD HENRY on: 12/17/2018 11:39 AM Modules accepted: Orders ER ASSOCIATE in this encounter Plan of Treatment Not on fileas of this encounter Visit Diagnoses Diagnosis Tobacco abuse - Primary Tobacco use disorder 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
--- OUTSIDE RECORDS SUMMARY | 2019-01-25 08:43 | XMS REPORT | Encounter Summary ---
Author Author [facility] Organization [facility] Address Unknown Phone Unavailable Care Team Providers Care Transport Aircrewman Name Role Phone Carroll Arce RN Unavailable Dilma Nam APRN Unavailable Michael Phelps MD Unavailable Yelitza He Unavailable Unavailable Taryn Enciso RN Unavailable Unavailable Presley Dumont MD PCP Encounter Details Care Team Description Date Type Department Deneen Parham MD [address] [facility] Lvl [address] [place] [address] Laryngeal mass (Primary Dx) 12/17/2018 Prep for Case [facility] Physicians - ENT [address] [place] [address] Social History Date Tobacco Use [...] fileas of this encounter Visit Diagnoses Diagnosis Laryngeal mass - Primary Other diseases of larynx in this encounter
--- OUTSIDE RECORDS SUMMARY | 2019-01-25 08:43 | XMS REPORT | Encounter Summary ---
Author Author [facility] Organization [facility] Address Unknown Phone Unavailable Care Team Providers Care Air Quality Manager Name Role Phone Carroll Arce RN Unavailable Dilma Nam APRN Unavailable Michael Phelps MD Unavailable Yelitza He Unavailable Unavailable Taryn Enciso RN Unavailable Unavailable Presley Dumont MD PCP Reason for Referral * Radiology Services (Routine) Referred By Contact Referred To Contact Status Reason Specialty Diagnoses / Procedures Deneen Parham MD [address] [facility] L[address] [place] [address] New Request Radiology Diagnoses Vocal cord mass P rocedures CT CHEST W CONTRAST CT CHEST WO/W CONTRAST * Radiology Services (Routine) Referred By Contact Referred To Contact Status Reason Specialty Diagnoses / Procedures Deneen Parham MD [address] [facility] Lvl [address] [place] [address] New Request Radiology Diagnoses Vocal cord mass P rocedures CT CHEST W CONTRAST CT CHEST WO/W CONTRAST * Radiology Services (Routine) Referred By Contact Referred To Contact Status Reason Specialty Diagnoses / Procedures Deneen Parham MD [address] [facility] Lvl [address] [place] [address] [address] [place] [address] Closed Radiology Diagnoses Vocal cord mass P rocedures CT NECK W/CONTRAST CT NECK WO/W CONTRAST CHG CT THORAX W/CONTRAST MATERIAL * Radiology Services (Routine) Referred By Contact Referred To Contact Status Reason Specialty Diagnoses / Procedures Deneen Parham MD [address] [facility] Lvl [address] [place] [address] [address] [place] [address] Closed Radiology Diagnoses Vocal cord mass P rocedures CT NECK W/CONTRAST CT NECK WO/W CONTRAST CHG CT THORAX W/CONTRAST MATERIAL Reason for Visit * Radiology Services (Routine) Referred By Contact Referred To Contact Status Reason Specialty Diagnoses / Procedures Deneen Parham MD [address] [facility] Lvl [address] [place] [address] [address] [place] [address] Closed Radiology Diagnoses Vocal cord mass P rocedures CT NECK W/CONTRAST CT NECK WO/W CONTRAST CHG CT THORAX W/CONTRAST MATERIAL Encounter Details Care Team Description Date Type Department Deneen Parham MD [address] [facility] Lvl [address] [place] [address] [phone] 12/17/2018 [facility] Encounter [facility] [address] [place] [address] Social History Date Tobacco Use Types Packs/Day [...] oz of water and after a meal. as of this encounter Plan of Treatment Not on fileas of this encounter Procedures Comments Procedure Name Priority Date/Time Associated Diagnosis CT CHEST W CONTRAST Routine 12/17/2018 Vocal cord mass 7:[address] NECK W/CONTRAST Routine 12/17/2018 Vocal cord mass 7:44 AM LANDSCAPER HELPER in this encounter Results * CT CHEST W CONTRAST (12/17/2018 7:44 AM LANDSCAPER HELPER) Impressions Performed At 1. No evidence of metastatic disease to the thorax. Stable pulmonary nodules, [facility] several unchanged for almost 2 years. No new or enlarging nodule. Attention on one-year follow-up CT or per clinical protocol to reassess. 2. Incompletely imaged fluid collection along the right hepatic lobe extending inferiorly off the [id number]. This is of uncertain etiology but could [...] nodule, stable from remote prior CT in 2015 as seen on image 75 of the [...] Interface, Radiant Results - 12/17/2018 8:[address] CHEST W CONTRAST INDICATION: right vocal [...] nodule, stable from remote prior CT in 2015 as seen on image 75 of the [...] right hepatic lobe extending inferiorly off the [id number]. This is of uncertain etiology but could represent loculated ascites, abscess or biloma. Advise dedicated abdomen and pelvis CT with contrast for further characterization. #Follow Finalized by Ranjit Prajapati M.D. on 12/17/2018 8:30 AM. Dictated by Ranjit Prajapati M.D. on 12/17/2018 8:18 AM. Performing Organization Address City/State/Zipcode Phone Number [facility] * CT NECK W/CONTRAST (12/17/2018 7:44 AM LANDSCAPER HELPER) Impressions Performed At 1. Nodular thickening of [...] Interface, Radiant Results - 12/17/2018 9:[address] neck History: Right vocal cord mass. [...] on 12/17/2018 9:13 AM. Performing Organization Address City/State/Zipcode Phone Number [facility] in this encounter Visit Diagnoses Diagnosis Vocal cord mass Other diseases of vocal cords in this encounter Administered Medications Action Date Dose Rate Site Medication Order MAR Action 12/17/2018 7:36 AM LANDSCAPER HELPER 135 mL iohexol (OMNIPAQUE-350) 350 mg/mL Given injection 135 mL 135 mL, Intravenous, ONCE, 1 dose, 12/17/18 at 0815, NOTE: This is a HIGH ALERT Medication., 12/17/2018 7:36 AM LANDSCAPER HELPER 50 mL sodium chloride PF 0.9% injection 50 mL Given 50 mL, Intravenous, ONCE, 1 dose, 12/17/18 at 0815, DO NOT SEND this medication unless it is requested. This med is usually available in floor stock., Intra-procedure (IR) in this encounter
--- OUTSIDE RECORDS SUMMARY | 2019-01-25 08:43 | XMS REPORT | Encounter Summary ---
Author Author [facility] Organization [facility] Address Unknown Phone Unavailable Care Team Providers Care Ceramic Chemist Name Role Phone Carroll Arce RN Unavailable Dilma Nam APRN Unavailable Manjeet Benz MD PCP Michael Phelps MD Unavailable Yelitza He Unavailable Unavailable Taryn Enciso RN Unavailable Unavailable Reason for Visit * Reason Comments Medication Problem Encounter Details Care Team Description Date Type Department Esther Jerez MD [id number] [place] [address] Medication Problem 11/08/2018 Telephone [facility] Physicians - Internal Medicine [address] [place] [address] [place] [address] Social History Date Tobacco Use Types Packs/Day [...] encounter Miscellaneous Notes * Telephone Encounter - Annamaria Maldonado LPN - 11/15/2018 9:17 AM MANGLE TENDER Patient called back and I relayed message of insurance not covering Stiolto and placed order for Anoro. Patient voiced understanding with no further questions at this time. Annamaria Maldonado LPN LE TENDER * Telephone Encounter - Rajwinder Dc RN - 11/09/2018 11:45 AM MANGLE TENDER Discussed with . RBVO: DC Stiolto. Anoro, 1 inhalation daily. Attempted to reach patient. No answer. LVM requesting call back. LE TENDER * Telephone Encounter - Rajwinder Dc RN - 11/08/2018 2:29 PM MANGLE TENDER Fax received from [employer] reporting that Stiolto is not covered by patient's insurance plan. The preferred alternatives are Anoro or Bevespi. LE TENDER in this encounter Plan of Treatment Not on fileas of this encounter Visit Diagnoses Not on filein this encounter
--- OUTSIDE RECORDS SUMMARY | 2019-01-25 08:43 | XMS REPORT | Encounter Summary ---
Author Author [facility] Organization [facility] Address Unknown Phone Unavailable Care Team Providers Care Wharf Builder Name Role Phone Carroll Arce RN Unavailable Dilma Nam APRN Unavailable Manjeet Benz MD PCP Michael Phelps MD Unavailable Yelitza He Unavailable Unavailable Taryn Enciso RN Unavailable Unavailable Reason for Visit * Reason Comments Medication Follow-up Encounter Details Care Team Description Date Type Department Talia Tello, SALONI Medication Follow-up 11/15/2018 Documentation [facility] [address] [address] Social History Date Tobacco Use [...] cognitive impairment: No as of this encounter Progress Notes * Talia Tello, SALONI - 11/15/2018 9:01 AM PLATE CUTTER Hepatitis C Treatment Program: Program / Treatment Completion Skyler Yarbrough completed their hepatitis C treatment regimen of Harvoni for a total of 12 weeks on 08/09/18. They have received their entire supply of medication and no longer require additional refills. Twelve weeks after completion of hepatitis C treatment, the patient hepatitis C viral load was checked. Hepatitis C Viral Load / Hepatitis C PCR: Hepatitis C PCR Quantitative Date/Time Value Ref Range Status 11/07/2018 11:26 AM HCV RNA Not Detected, <12 IU/mL <12 IU/ML Final Comment: The test method detects HCV viral load using the Eduardo RealTime assay. Please correlate results with the clinical status of the patient. As there is no longer virus present, this means that the patient achieved sustained virologic response (SVR) and has been cured of hepatitis C. Thus, the patient no longer requires treatment for hepatitis C and will be removed from the hepatology pharmacy patient management program. Talia Tello PHARMD E CUTTER in this encounter Plan of Treatment Not on fileas of this encounter Visit Diagnoses Not on filein this encounter
--- OUTSIDE RECORDS SUMMARY | 2019-01-25 08:43 | XMS REPORT | Encounter Summary ---
Author Author [facility] Organization [facility] Address Unknown Phone Unavailable Care Team Providers Care Drywall Foreman Name Role Phone Carroll Arce RN Unavailable Dilma Nam APRN Unavailable Manjeet Benz MD PCP Michael Phelps MD Unavailable Yelitza He Unavailable Unavailable Taryn Enciso RN Unavailable Unavailable Reason for Referral * Radiology Services (Routine) Referred By Contact Referred To Contact Status Reason Specialty Diagnoses / Procedures Deneen Parham MD [address] [facility] Lvl [address] [place] [id number] New Request Radiology Diagnoses Vocal cord mass P rocedures CT CHEST W CONTRAST CT CHEST WO/W CONTRAST * Radiology Services (Routine) Referred By Contact Referred To Contact Status Reason Specialty Diagnoses / Procedures Deneen Parham MD [address] [facility] Lvl [address] [place] [id number] [address] [place] [address] Closed Radiology Diagnoses Vocal cord mass P rocedures CT NECK W/CONTRAST CT NECK WO/W CONTRAST CHG CT THORAX W/CONTRAST MATERIAL Encounter Details Care Team Description Date Type Department Deneen Parham MD [address] [facility] Lvl [address] [place] [address] [phone] Vocal cord mass (Primary Dx) 12/12/2018 Orders Only The [facility] [address] [place] [address] Social History Date Tobacco Use Types Packs/Day [...] Treatment Not on fileas of this encounter Results * CT CHEST W CONTRAST (12/17/2018 7:44 AM CAGE FIGHTER) Impressions Performed At 1. No evidence of metastatic disease to the thorax. Stable pulmonary nodules, [facility] several unchanged for almost 2 years. No new or enlarging nodule. Attention on one-year follow-up CT or per clinical protocol to reassess. 2. Incompletely imaged fluid collection along the right hepatic lobe extending inferiorly off the [id number]. This is of uncertain etiology but could [...] Interface, Radiant Results - 12/17/2018 8:[address] CHEST W CONTRAST INDICATION: right vocal [...] right hepatic lobe extending inferiorly off the [id number]-[id number]. This is of uncertain etiology but could represent loculated ascites, abscess or biloma. Advise dedicated abdomen and pelvis CT with contrast for further characterization. #Follow Finalized by Ranjit Prajapati M.D. on 12/17/2018 8:30 AM. Dictated by Ranjit Prajapati M.D. on 12/17/2018 8:18 AM. Performing Organization Address City/State/Zipcode Phone Number [facility] * CT NECK W/CONTRAST (12/17/2018 7:44 AM CAGE FIGHTER) Impressions Performed At 1. Nodular thickening of [...] Interface, Radiant Results - 12/17/2018 9:[address] neck History: Right vocal cord mass. [...] encounter Visit Diagnoses Diagnosis Vocal cord mass - Primary Other diseases of vocal cords in this encounter
--- OUTSIDE RECORDS SUMMARY | 2019-01-25 08:43 | XMS REPORT | Encounter Summary ---
Author Author [facility] Organization [facility] Address Unknown Phone Unavailable Care Team Providers Care Manager Federal Name Role Phone Carroll Arce RN Unavailable Dilma Nam APRN Unavailable Michael Phelps MD Unavailable Yelitza He Unavailable Unavailable Taryn Enciso RN Unavailable Unavailable No Pcp, Na PCP Unavailable Encounter Details Care Team Description Date Type Department Terry Wu PA-C [address] [facility] Lvl [address] [place] [address] 12/14/2018 Documentation [facility] - ENT [address] [place] [address] Social History Date Tobacco Use [...] as of this encounter Progress Notes * Terry Wu PA-C - 12/14/2018 3:24 PM REAL ESTATE CONSULTANT Both CT N and C are approved. Auth for CT N [id number] C [id number] Terry Wu PA-C I spent 5 minutes on this call. ESTATE CONSULTANT in this encounter Plan of Treatment Not on fileas of this encounter Visit Diagnoses Not on filein this encounter
--- OUTSIDE RECORDS SUMMARY | 2019-01-25 08:43 | XMS REPORT | Encounter Summary ---
Author Author [facility] Organization [facility] Address Unknown Phone Unavailable Care Team Providers Care Junior Data Analyst Name Role Phone Carroll Arce RN Unavailable Dilma Nam APRN Unavailable Michael Phelps MD Unavailable Yelitza He Unavailable Unavailable Taryn Enciso RN Unavailable Unavailable Presley Dumont MD PCP Reason for Visit * Reason Comments Dysphagia * Consult, Test & Treat (Routine) Referred By Contact Referred To Contact Status Reason Specialty Diagnoses / Procedures Deneen Parham MD [address] [facility] Lvl [address] [place] [phone] Kristy Majano MA,CCC-ANVILSMITH [address] [facility] Lvl [address] [place] [phone] New Request Speech Pathology Diagnoses / Otolaryngology speech eval for laryngectomy P rocedures RESEARCH VISIT CLIN SUPPORT Encounter Details Care Team Description Date Type Department Kenya Bhatti MA,CCC-ANVILSMITH Pharyngeal dysphagia 12/17/2018 Clinical [facility] Physicians - ENT [address] [place] [address] Social History Date Tobacco Use [...] as of this encounter Progress Notes * Kenya Bhatti MA,CCC-ANVILSMITH - 12/17/2018 2:00 PM MANAGEMENT RETAIL INTERN [facility] Clinical Swallow Evaluation ([id number]) Staff: Deneen Parham Date of Service: 12/17/2018 G Codes: G8996: CK - Noms 4 - mild to moderate + G8997: CK - Noms 4 - mild to moderate + G8998: CK - Noms 4 - mild to moderate Skyler Yarbrough is a 58 y.o. year old male, referred to this service by Dr. Parham for a speech pathology clinical swallow evaluation. MR Yarbrough presents with a diagnosis of dysphagia. His past medical history is significant for a right TVC lesion, tentatively staged as a T2N0M0. Patient is planning to undergo a direct laryngoscopy and biopsy in the near future. He also has a past medical history of Basal cell carcinoma, Chronic back pain, Colon polyps, Hepatitis C, Melanoma (HCC), and Opiate use. The patient is getting 100% of his nutrition and hydration by mouth at this time. This is consistent with FOIS scale 5; total oral diet with multiple consistencies, but requiring special preparation or compensations. He does report difficulty swallowing solids such as breads and meats. He denies difficulty swallowing liquids. He reports that when he eats solids, he must use a liquid wash and swallow with effort. It does take him longer to eat. He tries to supplement is diet with liquid nutrition when he has some Boost/Ensure/Etc. available. He has lost some weight but denies recent pulmonary infection. He reports that he was recently diagnosed with a mild case of COPD. The purpose of this evaluation is to assess the efficiency and safety of the swallow mechanism and to provide a plan for intervention as warranted. MDADI Subscores Global Subscale Score: 80 Emotional Subscale Score: 73.33 Functional Subscale Score: 68 Physical Subscale Score: 65 EVALUATION RESULTS: A cursory oral mechanism was completed. Labial function was within normal limits. Lingual function was within normal limits. Patient with partial dentition. Dentition adequate for a total oral diet. Velar movements were present and symmetrical. Jaw ROM was adequate for a regular diet. Upon palpation of a dry swallow, laryngeal elevation seemed prompt and adequate. Patient was presented with the following consistencies during this evaluation: thin liquid and cracker Administration was by the patient via side of cup. Patient took a small bite of the cracker and used water to wash it down. No signs/symptoms of aspiration were demonstrated with sips of water or bite of cracker. The patient's vocal quality remained clear. Patient was observed to use multiple, effortful swallows with the cracker before taking a sip of water to further clear any residue remaining in the pharynx. IMPRESSIONS/RECOMMENDATIONS: Based on the above findings, MR Yarbrough presents with NOMS level 4: mild pharyngeal dysphagia. At this time I recommend he continue to eat and drink by mouth as he has been, sticking to softer consistencies. He should supplement his diet as needed for weight and nutrition maintenance. This is consistent with FOIS Scale 5; total oral diet with multiple consistencies, but requiring special preparation or compensations. Safe swallow precautions were reviewed with patient today. He was also provided an application for the [facility]. All questions were answered. Following surgery, it is recommended that the pharyngeal phase of swallowing be evaluated as warranted. These findings and recommendations were discussed with this patient and referring physician with good understanding and agreement. CH: 0% Impaired CI: 1% to 19% Impaired CJ: 20% to 39% Impaired CK: 40% to 59% Impaired CL: 60% to 79% Impaired CM: 80% to 99% Impaired CN: 100% Impaired ATTESTATION I have reviewed the information from this visit and agree with the impression and recommendations. Staff name: Deneen Parham MD Date: 12/18/2018 GEMENT RETAIL INTERN in this encounter Plan of Treatment Not on fileas of this encounter Visit Diagnoses Diagnosis Pharyngeal dysphagia Dysphagia, pharyngeal phase in this encounter
--- OUTSIDE RECORDS SUMMARY | 2019-01-25 08:43 | XMS REPORT | Encounter Summary ---
Author Author [facility] Organization [facility] Address Unknown Phone Unavailable Care Team Providers Care Filter Tender Jelly Name Role Phone Carroll Arce RN Unavailable Dilma Nam APRN Unavailable Manjeet Benz MD PCP Michael Phelps MD Unavailable Yelitza He Unavailable Unavailable Taryn Enciso RN Unavailable Unavailable Reason for Visit * Reason Comments Records Request Encounter Details Care Team Description Date Type Department Esther Jerez MD [address] [address] Records Request 11/09/2018 Telephone [facility] - Internal Medicine [address] [place] [address] [place] [address] Social History Date Tobacco Use [...] encounter Miscellaneous Notes * Telephone Encounter - Rajwinder Stuart MA,CCC-RESEARCH NEUROPSYCHOLOGIST - 11/16/2018 11:58 AM REFLECTOR DRILLER AND DEBURRER Called patient to verify where laryngoscopy procedure was completed at. Patient stated he had the procedure done in clinic this past April or May at Dr. Still' s office. I called Dr. Still's office to verify patient has not been in clinic since 2015 and dental office receptionist confirmed that patient has not been back since 2016 and was scheduled to return but no showed. Dr. Still has not heard from the patient since. I was able to find another clinic in [facility], called [facility] (T# [phone]) to verify if patient has been seen in clinic. Screen Printing Machine Operator Helper stated that patient was seen in clinic in 2014 and 2015. There is a laryngoscopy report on file from 2014. Screen Printing Machine Operator Helper faxing report to clinic. Fax received containing report from 2014. Contacting [facility] due to notes faxed to clinic, it stated that scope was recommended but patient refused. But patient is adamant that procedure was completed this past May 2018. Spoke to Rosmery at [facility] who stated she does not have access to any records because their facility is closing at the end of the year and all records have been transferred to another facility and she is unsure when those records will be available. Called patient back and informed him that he will need to go get copy of records from procedure and fax/mail them to us. Patient stated he doesn't know why they are saying that but he will get that next week when he goes to [facility] for another doctors appt. Rajwinder Stuart MA Routing to Hermelinda Dc RN. ECTOR DRILLER AND DEBURRER * Telephone Encounter - Rajwinder Dc RN - 11/16/2018 11:10 AM REFLECTOR DRILLER AND DEBURRER Clinic notes received from [facility]. Given to to review. ECTOR DRILLER AND DEBURRER * Telephone Encounter - Rajwinder Stuart MA,CCC-RESEARCH NEUROPSYCHOLOGIST - 11/09/2018 2:54 PM REFLECTOR DRILLER AND DEBURRER Incoming fax from [facility]. Cover sheet states patient has not been seen by since 11/25/15. Progress note from 11/25/15 is only documentation attached. Called Dr. Still's office. Spoke to his nurse, who stated that was last time patient was seen in their clinic and no procedures are on record. Referral to Dr. Jerez came from Jocelyn Coy NP. Called ASSOCIATE DIRECTOR DATA [employer] ANALYTICS Jocelyn Solorzano of [facility], spoke to Corina, to verify patient has been seen recently and if any records may be on file including procedures. Corina stated that patient has been an active patient with them and to fax a request to records department. Fax sent to [facility] to obtain clinic notes and laryngoscopy report. [facility] T# [phone] (Office) F# [phone] (Records) Rajwinder Stuart MA Routing to Hermelinda Dc RN. ECTOR DRILLER AND DEBURRER * Telephone Encounter - Rajwinder Stuart MA,CCC-RESEARCH NEUROPSYCHOLOGIST - 11/09/2018 11:10 AM REFLECTOR DRILLER AND DEBURRER Request for last 3 clinic notes and laryngoscopy report faxed to [facility] in [facility]. [address] ENT T# [phone] F# [phone] Routing to Hermelinda Dc RN. ECTOR DRILLER AND DEBURRER in this encounter Plan of Treatment Not on fileas of this encounter Visit Diagnoses Not on filein this encounter
--- OUTSIDE RECORDS SUMMARY | 2019-01-25 08:43 | XMS REPORT | Encounter Summary ---
Author Author [facility] Organization [facility] Address Unknown Phone Unavailable Care Team Providers Care Forest Science Professor Name Role Phone Carroll Arce RN Unavailable Dilma Nam APRN Unavailable Michael Phelps MD Unavailable Yelitza He Unavailable Unavailable Taryn Enciso RN Unavailable Unavailable No Pcp, Na PCP Unavailable Reason for Visit * Reason Comments Navigation Assessment Encounter Details Care Team Description Date Type Department Deneen Parham MD [address] [facility] [address] [address] [phone] Navigation Assessment 12/14/2018 Telephone [facility] [address] [address] Social History Date Tobacco Use Types Packs/Day [...] encounter Miscellaneous Notes * Telephone Encounter - Carly Jacinto RN - 12/14/2018 8:56 AM NETWORK SECURITY ENGINEER Navigation Intake Assessment Document Patient Name: Skyler Yarbrough : 1960 Insurance: Medicare and Medicaid Appointment Info: Future Appointments Date Time Provider Department Center 12/17/2018 8:15 AM CT - IC IC1CT ICC Radiolog 12/17/2018 10:00 AM Deneen Parham MD [facility] ENT 12/17/2018 2:00 PM Kristy Majano MA,CCC-CRIME SPECIALIST [facility] ENT 01/21/2019 12:00 PM Dilma Nam APRN CFT GEN HEP CFT 02/27/2019 9:00 AM Esther Jerez MD [facility] EMERGENCY DEPARTMENT IM Diagnosis & Reason for Visit: Right vocal cord mass, 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 Pt reports hoarseness and cough began in January 2018. Pt also so Dr Jerez at on 11/07/18 for the same problem. Dr Still did scope that showed mass replacing the right vocal cord, more of an erosive that an exophytic mass with good patent airway, appeared to be a T3 lesion. Pt referred to for further workup. Pt denies difficulty breathing, swallowing, or sore throat. Pt reports some weight loss, maybe 4-5 lbs. Pt reports he quit smoking 2 months ago , Was smoking 1/2 pack per day for many years. Hx of ETOH abuse x 30 years, currently consumes 12 beers monthly, Hx of substance abuse- Meth, last used in 2015. . PMH: HCV- pt has sustained SVR 10/2018, melanoma skin cancer, arthritis, chronic back pain, GERD, polysubstance abuse, s/p colonoscopy with multiple tubular adenomatous polypectomy and one hyperplastic polypectomy s/p open right hemicolectomy with primary anastomosis with complications of ARDS, pleural effusion. Liver biopsy in April 2016 stage 1/6 fibrosis. Pt is disabled due to back and neck injury. Hx of reported melanoma on left neck, - Several years ago, treated by excision. Hx of Basal cell ca, excised from right shoulder and right flank at 201712/17/18- pt scheduled for CT Neck and Chest at [facility] prior to appt. Physician Info: Referring Physician: Dr Barney Still Contact Name & Number: [phone] Surgeon: Deneen Parham MD appt on 12/17/18 Medical Oncologist: none Radiation Oncologist: none PCP: Dr Presley Dumont Other: Location of Films: IN HOUSE Location of Pathology: No pathology Prior Treatment (XRT, Surgery, Chemotherapy): Hx of reported melanoma on left neck, - Several years ago, treated by excision. - Lesion was treated by Dr. Ramos in 1988 and again in 2016?? Hx of Basal cell ca, excised from right shoulder and right flank at 2017 NEEDS Assessment: Genetic Counseling: Assessment: Genetic Assessment: Not assessed at this time Intervention: Genetic Intervention: Services declined at this time Nutrition: Assessment: Recent Weight Loss Without Trying?: Yes, 2-13 lb. Eating Poorly Due to Decreased Appetite?: No Score: Malnutrition Screening Tool (MST): 1 Additional Nutrition Assessment: Other (Comment) Intervention: Social & Financial:Assessment: Social and Financial Assessment: Financial Concerns;Lack of social support pt reports he is on disability, lives alone and was not able to identify any family support. Intervention: Social and Financial Intervention: Referral placed to Lab Scientist;Provided information about available services Referral is being made to [facility]. Spiritual & Emotional: Assessment: Spiritual and Emotional Assessment: No needs identified Intervention: Spiritual and Emotional Intervention: Emotional Support provided;Provided information about available services;Services declined at this time Physical: Assessment: Fall Risk: None identified Physical needs: No needs identified Pain Score: Two Pain Loc: Back Fatigue Scale: 2 Intervention: Communication: Assessment: Communication Barrier: No Intervention: Communication intervention: Other (Comment) Onc Fertility: Assessment: Onc Fertility Assessment: Not applicable Intervention: Additional Education: ORK SECURITY ENGINEER in this encounter Plan of Treatment Not on fileas of this encounter Visit Diagnoses Not on filein this encounter
--- OUTSIDE RECORDS SUMMARY | 2019-01-25 08:43 | XMS REPORT | Encounter Summary ---
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 1157 An Stop Meds * No agents on file. * No blood administrations on file. Removal [...] Vital Signs Time Taken Vital Sign Reading 12/21/2018 3:31 PM HEALTH CLUB MANAGER Blood Pressure 130/79 12/21/2018 3:31 PM HEALTH CLUB MANAGER Pulse 83 12/21/2018 3:31 PM HEALTH CLUB MANAGER Temperature 36.8 C (98.2 F) - Respiratory Rate - 12/21/2018 3:31 PM HEALTH CLUB MANAGER Oxygen Saturation 97% - Inhaled Oxygen - Concentration 12/21/2018 3:31 PM HEALTH CLUB MANAGER Weight 73.7 kg (162 lb 6.4 oz) 12/21/2018 3:31 PM HEALTH CLUB MANAGER Height 167.6 cm (5' 6") 12/21/2018 3:31 PM HEALTH CLUB MANAGER Body Mass Index 26.21 in this encounter Functional Status Date of [...] as of this encounter Patient Instructions * Pre-Anesthesia Patient Instructions* Mckayla Eduardo RN - 12/21/2018 3:30 PM HEALTH CLUB MANAGER GENERAL INFORMATION Before you come to the hospital Make arrangements for a responsible adult to drive you home and stay with you for 24 hours following surgery. Bath/Shower Instructions Take a bath or shower with antibacterial soap the night before or the morning of your procedure. Use clean towels. Take a bath or shower using the special soap given to you in PAC. Use half the bottle the night before, and the other half the morning of your procedure. Use clean towels with each bath or shower. Put on clean clothes after bath or shower. Avoid using lotion and oils. If you are having surgery above the waist, wear a shirt that fastens up the front. Sleep on clean sheets if bath or shower is done the night before procedure. Leave money, credit cards, jewelry, and any other valuables at home. The [facility] is not responsible for the loss or breakage of personal items. Remove nail pakistani, makeup and all jewelry (including piercings) before coming to the hospital. The morning of your procedure: brush your teeth and tongue do not smoke do not shave the area where you will have surgery What to bring to the hospital ID/ Insurance Card Rf Technician card Official documents for legal guardianship Copy of your Living Will, Advanced Directives, and/or Durable Power of Rotary Lithographic Press Operator Small bag with a few personal belongings Cases for glasses/hearing aids/contact lens (bring solutions for contacts) Dress in clean, loose, comfortable clothing Eating or drinking before surgery Do not eat or drink anything after 11:00 p.m. the day before your procedure ( including gum, mints, candy, or chewing tobacco) OR follow the specific instructions you were given by your Surgeon. You may have WATER ONLY up to 2 hours before arriving at the hospital. Other instructions: Other instructionsNotify your surgeon if: you become ill with a cough, fever, sore throat, nausea, vomiting or flu- like symptoms you have any open wounds/sores that are red, painful, draining, or are new since you last saw the doctor you need to cancel your procedure You will receive a call with your surgery arrival time from between 2:30pm and 4:30pm the last business day before your procedure. If you do not receive a call, please call [phone] before 4:30pm or [phone] after 4:30pm. Notify us at [facility]: if you need to cancel your procedure if you are going to be [place] [address] ? Park in the P5 parking garage located at [address] [place] [address]. ? School Coordinator parking is available in front of [facility] between the hours of 7:00 am and 4:00 pm Monday through Monday. ? If parking in the P5 garage, take the east elevators in the parking garage to the second level and walk to the entrance of the [facility]. ? Enter through the 1st floor main entrance and check in with Information Desk. ? If you are a woman between the ages of 10 and 55, and have not had a hysterectomy, you will be asked for a urine sample prior to surgery. Please do not urinate before arriving in the Surgery Waiting Room. Once there, check in and let the attendant know if you need to provide a sample. TH CLUB MANAGER * Pre-Anesthesia Medication Instructions* Jorge Luis Mills, PHARMD - 12/21/2018 3:30 PM HEALTH CLUB MANAGER YOUR MEDICATIONS: food supplemt, lactose-reduced (BOOST HIGH PROTEIN) 0.06 gram- 1 kcal/mL liqd Take 1 Bottle by mouth daily as needed. tiotropium-olodaterol (STIOLTO RESPIMAT) 2.5-2.5 mcg/actuation inhaler Inhale two puffs by mouth into the lungs daily. umeclidinium-vilanterol (ANORO ELLIPTA) 62.5-25 mcg/actuation inhaler Inhale one puff by mouth into the lungs daily. varenicline (CHANTIX CONTINUING MONTH BOX) 1 mg tablet Take 1 mg by mouth twice daily. Take with 8 oz of water and after a meal. YOUR MEDICATION INSTRUCTIONS FOR SURGERY: Before surgery Do not start any new vitamins, herbals, or natural supplements before surgery. Stop the following medications 7 days before surgery: Anti-inflammatory medications such as ibuprofen (Advil, Motrin) and naproxen (Aleve) You may use acetaminophen (Tylenol) Morning of surgery On the morning of surgery, do NOT take these medications: Remaining vitamins/supplements Ointments/creams/lotions On the morning of surgery, take ONLY these medications with a sip (1-2 ounces) of water: Use inhaler as usual Chantix Other information Before surgery, please contact the clinic pharmacist with any medicine updates or questions. E-mail: [email or web address] Before going home from the hospital, please ask your doctor when you should re- start your medicines that were stopped before surgery. 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
--- OUTSIDE RECORDS SUMMARY | 2019-01-25 08:43 | XMS REPORT | Encounter Summary ---
Author Author [facility] Organization [facility] Address Unknown Phone Unavailable Care Team Providers Care Client Services Associate Name Role Phone Carroll Arce RN Unavailable Dilma Nam APRN Unavailable Manjeet Benz MD PCP Michael Phelps MD Unavailable Yelitza He Unavailable Unavailable Taryn Enciso RN Unavailable Unavailable Reason for Visit * Reason Comments Results Encounter Details Care Team Description Date Type Department Og Ward RN Results 11/15/2018 Telephone [facility] [address] [place] [address] Social History Date Tobacco Use [...] Telephone Encounter - Og Ward RN - 11/15/2018 11:19 AM SUPERVISOR FORCE ADJUSTMENT Notified patient of results. RVISOR FORCE ADJUSTMENT * Telephone Encounter - Og Ward RN - 11/15/2018 11:19 AM SUPERVISOR FORCE ADJUSTMENT ----- Message from Dilma Nam APRN sent at 11/14/2018 9:39 PM SUPERVISOR FORCE ADJUSTMENT ----- 3 month post HCV treatment labs showing viral load is undetected. Liver tests are normal. Pt has achieved SVR. Plan to repeat CMP, CBC, INR, HCV PCR every 6 months x 2 to continue monitoring stability of liver enzymes and ensure no relapse of virus. Contact pt with results and recommendations. RVISOR FORCE ADJUSTMENT in this encounter Plan of Treatment Order Schedule Name Priority Associated Diagnoses Expected: 05/16/2019 (Approximate), Expires: 11/15/2019 COMPREHENSIVE METABOLIC PANEL Routine History of hepatitis C Liver disease Expected: 05/16/2019 (Approximate), Expires: 11/15/2019 CBC AND DIFF Routine History of hepatitis C Liver disease Expected: 05/16/2019 (Approximate), Expires: 11/15/2019 PROTIME INR (PT) Routine History of hepatitis C Liver disease Expected: 05/16/2019 (Approximate), Expires: 11/15/2019 HEPATITIS C VIRAL LOAD PCR QUANT Routine History of hepatitis C Liver disease as of this encounter Visit Diagnoses Diagnosis History of hepatitis C - Primary Personal history of other infectious and parasitic disease Substance abuse (HCC) Other, mixed, or unspecified nondependent drug abuse, unspecified Liver disease Unspecified disorder of liver in this encounter
--- OUTSIDE RECORDS SUMMARY | 2019-01-25 08:43 | XMS REPORT | Encounter Summary ---
Author Author [facility] Organization [facility] Address Unknown Phone Unavailable Care Team Providers Care Airport Engineer Name Role Phone Carroll Arce RN Unavailable Dilma Nam APRN Unavailable Michael Phelps MD Unavailable Yelitza He Unavailable Unavailable Taryn Enciso RN Unavailable Unavailable Presley Dumont MD PCP Reason for Visit * Auth/Cert Referred By Contact Referred To Contact Status Reason Specialty Diagnoses / Procedures Diagnoses Laryngeal mass Laryngeal mass [J38.7] P rocedures SC LARYNGOSCOPY DIRECT OPERATIVE W/BIOPSY DIRECT LARYNGOSCOPY WITH BIOPSY Encounter Details Care Team Description Date Type Department Deneen Sepulveda MD [address] [facility] Lvl [address] [place] [id number] Laryngeal mass 01/03/2019 [facility] Operating Room Encounter [address] [place], [place] [id number] Social History Date Tobacco Use Types Packs/Day [...] Taken Vital Sign Reading 01/03/2019 12:30 PM ENTRY LEVEL PARALEGAL Blood Pressure 110/74 01/03/2019 12:30 PM ENTRY LEVEL PARALEGAL Pulse 70 01/03/2019 12:30 PM ENTRY LEVEL PARALEGAL Temperature 36.4 C (97.6 F) - Respiratory Rate - 01/03/2019 12:30 PM ENTRY LEVEL PARALEGAL Oxygen Saturation 95% - Inhaled Oxygen - Concentration 01/03/2019 8:56 AM ENTRY LEVEL PARALEGAL Weight 74.3 kg (163 lb 12.8 oz) 01/03/2019 8:56 AM ENTRY LEVEL PARALEGAL Height 167.6 cm (5' 6") 01/03/2019 8:56 AM ENTRY LEVEL PARALEGAL Body Mass Index 26.44 in this encounter [...] Take with food. as of this encounter H&P Notes * Deneen Sepulveda MD - 01/03/2019 10:28 AM ENTRY LEVEL PARALEGAL History and Physical Update Note Allergies: Azithromycin and Levaquin [levofloxacin] Lab/Radiology/Other Diagnostic Tests: 24-hour labs: No results found for this visit on 01/03/19 (from the past 24 hour(s)). Point of Care Testing: (Last 24 hours): I have examined the patient, and there are no significant changes in their condition, from the previous H&P performed on 12/17/18. Darcie Parikh MD Pager Prasad: Patient seen and examined. Chart and imaging reviewed. No changes in history or physical exam. Will proceed as planned Y LEVEL PARALEGAL * Deneen Sepulveda MD - 12/17/2018 10:00 AM ENTRY LEVEL PARALEGAL Chief Complaint Patient presents with Mass History of Present Illness: Trista Yarbrough is a 58 y.o. year old male evaluated on 12/17/2018, in the Otolaryngology-Head and Neck Surgery Clinic at the [facility]. The patient was referred by [...] discuss treatment afterwards, TB Staff name: Deneen Sepulveda MD Date: 12/17/2018 Y LEVEL PARALEGAL in this encounter Miscellaneous Notes * Operative Report (Direct Entry) - Deneen Sepulveda MD - 01/03/2019 12:57 PM ENTRY LEVEL PARALEGAL OPERATIVE REPORT Name: Trista Yarbrough is a 58 y.o. male : 1960 DATE OF OPERATION: 01/03/2019 Surgeon(s) and Role: * Deneen Sepulveda MD - Primary * Darcie Parikh MD - Resident - Assisting * Devin Gómez MD - Fellow Preoperative Diagnosis: Laryngeal mass [J38.7] Post-op Diagnosis * Laryngeal mass [J38.7] Procedure(s): DIRECT LARYNGOSCOPY WITH BIOPSY micro direct using ) degree Fay Walter telescope Anesthesia Type: General Findings: Exophytic mass over the entire right true vocal cord. 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 The rest of the upper aerodigestive tract clear on endoscopy Description and Findings of Operative Procedure: After informed consent was obtained, the patient was brought back to the operating room and placed in a supine position. Anesthesia was induced by a combination of intravenous and inhalation technique and the patient was intubated by the anesthesia team. The eyes were lubricated and taped. A head donut was placed. A head wrap was created in usual fashion. A timeout was taken. A maxillary tooth guard was placed. The dedo laryngoscope was inserted into the oral cavity down to the level of the glottis with the above noted findings. Multiple biopsies were taken at the sites of concern. Hemostasis was achieved with epi soaked pledgets. The specimens were sent for frozen section. Once the frozens were reported, we then turned the patient back to anesthesia and the patient recovered from anesthesia without any issues. All counts were correct. The patient was eventually transferred to the recovery room in stable condition. Dr. Sepulveda was present for and participated in the cardoza portions of the procedure. Estimated Blood Loss: No blood loss documented. Specimen(s) Removed/Disposition: ID Type Source Tests Collected by Time Destination 1 : Anterior Right Vocal Cord Tissue Mouth SURGICAL PATHOLOGY Deneen Sepulveda MD 01/03/2019 1121 2 : Mid Right Cord Tissue Mouth SURGICAL PATHOLOGY Deneen Sepulveda MD 1122 3 : Posterior Right Cord Tissue Mouth SURGICAL PATHOLOGY Deneen Sepulveda MD 01/03/2019 1122 4 : Additional Tissue Right Glottis Tissue Vocal Cords SURGICAL PATHOLOGY Deneen Sepulveda MD 01/03/2019 1126 Darcie Parikh MD Pager Y LEVEL PARALEGAL * Care Plan - [place] - 01/03/2019 12:57 PM ENTRY LEVEL PARALEGAL Problem: Tobacco Use Goal: Knowledge of tobacco-use cessation methods Outcome: Goal Ongoing [employer] TELEPHONE Consultation NOTE: Pt was discharged prior to consultation. Pt was reached at home by telephone.ASSESSMENT/RECOMMENDATIONS Patient was referred for [employer] consultation Tobacco Use Treatment Practical Counseling was provided, including recognizing danger situations, developing coping skills and providing basic information about quitting. MEDICATION RECOMMENDATIONS TO QUIT TOBACCO: Education was provided to patient regarding recommended medication options for tobacco cessation. Patient endorsed the following medication plan: continue Chantix -- ask about Nicotrol Inhaler if needed Patient was encouraged to follow up: with primary care physician/ at next follow up medical appointment for a prescription Post discharge support referral: Declined [employer]an[employer]uit Educational Material: Accepted and mailed History of Present Illness Reports using 10 cigarettes per day prior to admission. Patient reported smoking less than one cigarette per day since being home. E-Cigarette or vape use: Current, occasional when out of Chantix Other tobacco use: None Years used: 48 Set a quit date: No Interest in quitting: high Contact Information If I can be of further assistance, please call [employer] [phone] Y LEVEL PARALEGAL * Procedures (Immed Post or Bedside) - Deneen Sepulveda MD - 01/03/2019 11:45 AM ENTRY LEVEL PARALEGAL Brief Operative Note Name: Trista Yarbrough is a 58 y.o. male : 1960 DATE OF OPERATION: 01/03/2019 Date: 01/03/2019 Preoperative Dx: Laryngeal mass [J38.7] Post-op Diagnosis * Laryngeal mass [J38.7] Procedure(s): DIRECT LARYNGOSCOPY WITH BIOPSY using 0 degree Fay walter telescope CPT 72648 Anesthesia Type: General Surgeon(s) and Role: * Deneen Sepulveda MD - Primary * Darcie Parikh MD - Resident - Assisting * Devin Gómez MD - Fellow Findings: Exophytic mass over the entire right true vocal cord. 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 The rest of the upper aerodigestive tract clear on endoscopy Estimated Blood Loss: minimal Specimen(s) Removed/Disposition: ID Type Source Tests Collected by Time Destination 1 : Anterior Right Vocal Cord Tissue Mouth SURGICAL PATHOLOGY Deneen Sepulveda MD 01/03/2019 1121 2 : Mid Right Cord Tissue Mouth SURGICAL PATHOLOGY Deneen Sepulveda MD 1122 3 : Posterior Right Cord Tissue Mouth SURGICAL PATHOLOGY Deneen Sepulveda MD 01/03/2019 1122 4 : Additional Tissue Right Glottis Tissue Vocal Cords SURGICAL PATHOLOGY Deneen Sepulveda MD 01/03/2019 1126 Complications: None Implants: None Drains: None Disposition: PACU - stable ATTESTATION I performed this procedure with a resident. and I was present for the entire procedure. Staff name: Deneen Sepulveda MD Date: 01/03/2019 Deneen Sepulveda MD Pager [phone] Y LEVEL PARALEGAL in this encounter Plan of Treatment Order Schedule Name Priority Associated Diagnoses ONCE for 1 Occurrences starting 01/03/2019 SURGICAL PATHOLOGY Routine Laryngeal mass as of this encounter Procedures Comments Procedure Name Priority Date/Time Associated Diagnosis SURGICAL PATHOLOGY 01/03/2019 11:29 AM ENTRY LEVEL PARALEGAL DIRECT LARYNGOSCOPY WITH 01/03/2019 Laryngeal mass BIOPSY 11:20 AM ENTRY LEVEL PARALEGAL TELEMETRY STRIPS-SCAN 01/03/2019 12:00 AM ENTRY LEVEL PARALEGAL ECG-SCAN 12/18/2018 12:00 AM ENTRY LEVEL PARALEGAL in this encounter Results * SURGICAL PATHOLOGY (01/03/2019 11:29 AM ENTRY LEVEL PARALEGAL) PATHOLOGY REPORT [facility] Capical [facility] [email or web address] Department of Pathology and Laboratory Medicine [address] [place] [address] Surgical Pathology Office:[phone] :[phone] SURGICAL PATHOLOGY REPORT NAME: TRISTA YARBROUGH SURG PATH #: [id number] MR #: [id number] SPECIMEN CLASS: [facility] BILLING #: [id number] ALT ID #:LOCATION: [id number] DATE OF PROCEDURE: 01/03/2019 AGE:58 SEX: M DATE RECEIVED: 01/03/2019 : 1960TIME RECEIVED:11: PHYSICIAN: DENEEN SEPULVEDA DATE OF REPORT: 01/07/2019 [...] supporting the above diagnosis. Pursuant to the Adult Family Home Program Manager Program at the [facility] Pathology Department, selected slides from [...] placed in cassette A1FS for permanent diagnosis. ([facility]) B. Received fresh, labeled with patient's name and "mid right cord" is a 0.7 x 0.3 x 0.2 cm aggregate of white-morales tissue fragments. The specimen is submitted entirely for frozen consultation with the remnant placed in cassette B1FS for permanent diagnosis. ([facility]) C. Received fresh, labeled with patient's name and "posterior right cord" is a 0.8 x 0.4 x 0.2 cm aggregate of white-morales tissue fragments. The specimen is submitted entirely for frozen consultation with the remnant placed in cassette C1FS for permanent diagnosis. ([facility])D. Received in formalin, labeled with the patient's name and "additional tissue right glottis" is a 1.4 x 0.3 x 0.2 cm aggregate of white-morales to pink-red tissue fragments. The fragments are filtered and centered entirely in cassette D1. ([facility]) [facility]/01/03/2019 Intraoperative Consultation: A1FS, squamous epithelia, "anterior right vocal cord", biopsy: At least carcinoma in situ, cannot rule out invasion. B1FS, squamous epithelia, "mid right cord", biopsy: At least carcinoma in situ, cannot rule out invasion. C1FS, squamous epithelia, "posterior right cord", biopsy: Squamous cell carcinoma, superficial invasion. Frozen section performed at the [facility], [facility], [address] [place] [id number]. Justo Richmond MD If immunohistochemical stains and/or in situ hybridization are cited in this report, the performance characteristics were determined by the Department of Pathology and Laboratory Medicine of the [facility] ([employer]) in compliance with [...] of Pathology and Laboratory Medicine of the [facility].It has not been cleared or approved by the FDA.The FDA has determined that such clearance or approval is not necessary. Performing Organization Address City/State/Zipcode Phone Number [facility] [address] [place] [address] * TELEMETRY STRIPS-SCAN (01/03/2019 12:00 AM ENTRY LEVEL PARALEGAL) Narrative Performed At Ordered by an unspecified provider. * ECG-SCAN (12/18/2018 12:00 AM ENTRY LEVEL PARALEGAL) Narrative Performed At Ordered by an unspecified provider. in this encounter Visit Diagnoses Diagnosis Laryngeal mass Other diseases of larynx in this encounter Administered Medications Action Date Dose Rate Site Medication Order MAR Action 01/03/2019 9:04 AM ENTRY LEVEL PARALEGAL 1,000 mL 20 mL/hr lactated ringers infusion [...]
--- OUTSIDE RECORDS SUMMARY | 2019-01-25 08:44 | XMS REPORT | Clinical Summary ---
Author Author [facility] Organization [facility] Address Unknown Phone Unavailable Care Team Providers Care Watch Crystal Cutter Name Role Phone PCP Unavailable Allergies Not on File Current Medications Not on file Active Problems Not on file Social History Tobacco Use Types Packs/Day Years Used Date Never Assessed Sex Assigned at Date Recorded Not on file Last Filed Vital Signs Not on file Plan of Treatment Not on file Results Not on filefrom Last 3 Months
--- OUTSIDE RECORDS SUMMARY | 2019-01-25 08:44 | XMS REPORT | Encounter Summary ---
Author Author [facility] Organization [facility] Address Unknown Phone Unavailable Care Team Providers Care Ambulance Attendant Name Role Phone Carroll Arce RN Unavailable Dilma Nam APRN Unavailable Manjeet Benz MD PCP Michael Phelps MD Unavailable Yelitza He Unavailable Unavailable Taryn Enciso RN Unavailable Unavailable No Pcp, Na PCP Unavailable Presley Dumont MD PCP Reason for Visit * Reason Comments Other Cough * Consult, Test & Treat (Routine) Referred By Contact Referred To Contact Status Reason Specialty Diagnoses / Procedures Jocelyn Coy, ODIN [address] [place] [address] [facility] Pul[facility] [email or web address] [place] [address] New Request Pulmonology Diagnoses Inhalation injury Shortness of breath Encounter Details Care Team Description Date Type Department Esther Jerez MD [address] [place] [address] Shortness of breath; Other emphysema (HCC); Hoarseness 11/07/2018 Office Visit [facility] - Internal Medicine [email or web address] [place] [address] Social History Date Tobacco Use Types Packs/Day [...] Vital Signs Time Taken Vital Sign Reading 11/07/2018 9:26 AM RETAIL CLIENT SOLUTIONS CONSULTANT Blood Pressure 126/77 11/07/2018 9:26 AM RETAIL CLIENT SOLUTIONS CONSULTANT Pulse 76 11/07/2018 9:26 AM RETAIL CLIENT SOLUTIONS CONSULTANT Temperature 36.6 C (97.8 F) 11/07/2018 9:26 AM RETAIL CLIENT SOLUTIONS CONSULTANT Respiratory Rate 18 11/07/2018 9:26 AM RETAIL CLIENT SOLUTIONS CONSULTANT Oxygen Saturation 99% - Inhaled Oxygen - Concentration 11/07/2018 9:26 AM RETAIL CLIENT SOLUTIONS CONSULTANT Weight 71.2 kg (157 lb) 11/07/2018 9:26 AM RETAIL CLIENT SOLUTIONS CONSULTANT Height 175.3 cm (5' 9") 11/07/2018 9:26 AM RETAIL CLIENT SOLUTIONS CONSULTANT Body Mass Index 23.18 in this encounter Functional Status Date of [...] this encounter Patient Instructions * Patient Instructions* Rajwinder Dc RN - 11/07/2018 9:30 AM RETAIL CLIENT SOLUTIONS CONSULTANT Begin Stiolto Respimat, 2 puffs daily. This IS NOT a rescue inhaler. Clinic Visit Summary: Next clinic visit follow up with recommended in 3 months. Please contact Pulmonary Nurse Coordinator with signs and symptoms of worsening productive cough with thick secretions, blood in sputum, chest tightness/pain, shortness of breath, fever, chills, night sweats, or any questions or concerns. Pulmonary RN Coordinator-Hermelinda Dc RN T)[phone] F)[phone] For refills on medications, please have your pharmacy fax a refill authorization request form to our office at Fax) [phone]. Please allow at least 3 business days for refill requests. For urgent issues after business hours/weekends/holidays call [phone] and request for the digital marketing executive to be paged [place] CLIENT SOLUTIONS CONSULTANT in this encounter Progress Notes * Esther Jerez MD - 11/07/2018 9:30 AM RETAIL CLIENT SOLUTIONS CONSULTANT Subjective: History of Present Illness Skyler Yarbrough is a 58 y.o. male. This is a 58-year-old male with a past medical history significant for hepatitis C status post treatment, melanoma status post resection, and polysubstance abuse who was referred to the pulmonary clinic for evaluation of persistent chronic hoarseness and cough. The patient reports his hoarseness and cough began in January 2018. He believes it was due to fiberglass exposure and eventually moved into the house in the summer 2016 and began to do work on the house, such as pain. He reports that turned on the furnace and he began to have "a rash and hives." He then noticed that her voice became hoarse his throat "feels as if it was about to close." He attributes this to fiberglass found the ducts. He found out after the fact that the previous component assembler supervisor of the house was cooking methamphetamines in his side. So he is unsure if the fiberglass needed with close. But overall regards to his hives he reports that he has seen an teacher aide and dermatology. He reports that he was told that it is unclear why he developed these hives and there is nothing to do. He says that he followed up with an card grinder helper in [facility], who performed a laryngoscopy. The patient is unsure of the results of the laryngoscopy, but says that he was told that he needed to "stop smoking." It does not appear we have these records from this visit. The patient reports he has also had a chronic cough going on since that same time. He did not have a cough prior to that. Cough is constant and persistent and he occasionally coughs up clear sputum. He has had multiple ER visits in the past year diagnosed with acute bronchitis. He reports that he had been given an inhaler though he did not think that it appeared to work his voice hoarseness. Patient reports that earlier this year he did stay with his brother for a few days, he reports that his symptoms did seem to improve. He has now removed out of the house permanently for the last 2 weeks. He also reports that he feels as if he is not eating well. He denies any nausea or vomiting. Denies any association of his cough with swallowing, Though he does mention that he sometimes has trouble swallowing bread. Patient has a significant smoking history and does have a history of polysubstance use. He is working on quitting smoking, as he is currently on Chantix. It appears he smoked a pack and a half a day for 40 years. He reports he is currently smoking a pack per week. He is hoping to quit completely soon. He reports daily marijuana use and "nobody will give me pain meds." He also says that "once in a blue jameson" he will use cocaine or methamphetamine. Review of Systems Constitutional: Positive for appetite change and chills. HENT: Positive for voice change. Negative for congestion and sore throat. Eyes: Negative for itching and visual disturbance. Respiratory: Positive for cough and shortness of breath. Negative for apnea and choking. Cardiovascular: Negative for chest pain, palpitations and leg swelling. Gastrointestinal: Positive for diarrhea. Negative for abdominal pain, constipation, nausea and vomiting. Endocrine: Negative for cold intolerance, heat intolerance, polydipsia and polyuria. Genitourinary: Negative for dysuria, frequency and hematuria. Musculoskeletal: Positive for arthralgias, back pain and neck pain. Skin: Positive for rash. Negative for color change and wound. Allergic/Immunologic: Negative for environmental allergies and immunocompromised state. Neurological: Negative for dizziness, tremors and headaches. Hematological: Negative for adenopathy. Does not bruise/bleed easily. Psychiatric/Behavioral: Negative for agitation, behavioral problems and confusion. The patient is not nervous/anxious. Objective: cetirizine (ZYRTEC) 10 mg tablet Take 10 mg by mouth daily as needed for Allergy symptoms. There were no vitals filed for this visit. There is no height or weight on file to calculate BMI. Physical Exam Constitutional: He is oriented to person, place, and time. He appears well- developed and well-nourished. HENT: Head: Normocephalic and atraumatic. Mouth/Throat: No oropharyngeal exudate. Eyes: EOM are normal. Pupils are equal, round, and reactive to light. Neck: Normal range of motion. Cardiovascular: Normal rate, regular rhythm, normal heart sounds and intact distal pulses. No murmur heard. Pulmonary/Chest: Effort normal and breath sounds normal. No respiratory distress. He has no wheezes. He has no rales. Abdominal: Soft. Bowel sounds are normal. He exhibits no distension. There is no tenderness. Musculoskeletal: Normal range of motion. He exhibits no tenderness. Lymphadenopathy: He has no cervical adenopathy. Neurological: He is alert and oriented to person, place, and time. No cranial nerve deficit. Skin: Skin is warm and dry. He is not diaphoretic. Psychiatric: He has a normal mood and affect. His behavior is normal. Vitals reviewed. Assessment and Plan: This is a 58-year-old male with a past medical history significant for hepatitis C status post treatment, melanoma status post resection, and polysubstance abuse who was referred to the pulmonary clinic for evaluation of persistent chronic hoarseness and cough. Historically exposures in the house initiated and aggravated his respiratory symptoms and hoarse voice. He did improve when out of the house 1. Hoarseness - Persistent 2. Dyspnea - Progressive 3. COPD 4. Tobaccoism 5. Hives PLAN - He has moved out of the house 2 weeks ago. Encouraged patient to avoid entering the house - Encouraged patient to stop smoking, as this will help improve his symptoms. He is currently on Chantix and is down to 1 pack per week. - Patient does have COPD based on PFTs - Will start trial with Stiolto 2 puffs once a day. Patient was educated on inhalter technique during this visit. - Will request records from Dr. Still - ENT in [facility]. Will need to know what he saw during laryngoscopy. Patient may need speech therapy in future and/or referral to ENT if his symptoms persist. - Return to clinic in 3 months. At that time will assess if his hoarseness has improved after being out of the house for an extended period of time, and will obtain records from Dr. Still to review prior to that visit. Seen and discussed with Dr. Solitario Salas MD Internal Medicine PGY2 [place] CLIENT SOLUTIONS CONSULTANT in this encounter Plan of Treatment Not on fileas of this encounter Visit Diagnoses Diagnosis Shortness of breath Other emphysema (HCC) Other emphysema Hoarseness Dysphonia in this encounter
--- OUTSIDE RECORDS SUMMARY | 2019-01-25 08:44 | XMS REPORT | Encounter Summary ---
Author Author [facility] Organization [facility] Address Unknown Phone Unavailable Care Team Providers Care Associate Store Director Name Role Phone Carroll Arce RN Unavailable Dilma Nam ASSEMBLER MECHANICAL ORDNANCE Unavailable Manjeet Benz MD PCP Michael Phelps MD Unavailable Yelitza He Unavailable Unavailable Taryn Enciso RN Unavailable Unavailable Reason for Visit * Reason Comments Patient Reminder Call Encounter Details Care Team Description Date Type Department Dilma Nam, HEATHER [address] [place] [address] Patient Reminder Call 11/06/2018 Telephone [facility] [address] [place] [address] Social History Date Tobacco Use Types Packs/Day Years Used Quit: 10/31/2016 Current Every Day Smoker Cigarettes 1.5 Smokeless Tobacco: Former User Alcohol Use Drinks/Week oz/Week Comments Yes 0 [...] * Telephone Encounter - Pretty Gaytan - 11/06/2018 3:25 PM RETAIL MARKETING SPECIALIST LVM reminding pt to get past due labs drawn. Asked pt to CB and let us know if already done. [place] MARKETING SPECIALIST in this encounter Plan of Treatment Not on fileas of this encounter Visit Diagnoses Not on filein this encounter
--- OUTSIDE RECORDS SUMMARY | 2019-01-25 08:44 | XMS REPORT | Encounter Summary ---
Author Author [facility] Organization [facility] Address Unknown Phone Unavailable Care Team Providers Care Industrial Technology Teacher Name Role Phone Carroll Arce RN Unavailable Dilma Nam APRN Unavailable Manjeet Benz MD PCP Michael Phelps MD Unavailable Yelitza He Unavailable Unavailable Taryn Enciso RN Unavailable Unavailable Reason for Visit * Consult, Test & Treat (Routine) Referred By Contact Referred To Contact Status Reason Specialty Diagnoses / Procedures Esther Jerez MD [address] [address] Pulmonary Function [facility] [place] [address] [place] [address] New Request Specialty Services Diagnoses Required SOB (shortness of breath) Encounter Details Care Team Description Date Type Department Esther Jerez MD [address] [address] [phone] 11/07/2018 Hospital [facility] Pulmonary Function [facility] [place] [address] [place] [address] Social History Date Tobacco Use Types Packs/Day [...] Date End Date Medication Sig Dispensed Refills 11/07/2018 tiotropium-olodaterol Inhale two 4 g 11 (STIOLTO RESPIMAT) puffs by 2.5-2.5 mcg/actuation mouth into inhaler the lungs daily. varenicline (CHANTIX Take 1 mg by 0 CONTINUING MONTH BOX) 1 mouth twice mg tablet daily. Take with 8 oz of water and after a meal. as of this encounter Plan of Treatment Not on fileas of this encounter Procedures Comments Procedure Name Priority Date/Time Associated Diagnosis PFT COMPLETE PULM Routine 11/07/2018 Tobacco abuse FUNCTION 8:18 AM KEG RAISER in this encounter Results * PFT COMPLETE PULM FUNCTION (11/07/2018 8:18 AM KEG RAISER) FVC-Pre 5.22 L [facility] FVC-%Pred-pre 119 % [facility] FVC-Post 5.47 L [facility] FVC-%Pred-Post 124 % [facility] FEV1-Pre 3.22 L [facility] FEV1-%Pred-Pre 97 % [facility] FEV1-Post 3.55 L [facility] FEV1-%Pred-Post 106 % [facility] FEV1/FVC-Pre 62 % [facility] [id number] 66 % [facility] [id number] 1.50 L/sec [facility] RWU6918-%Pred-Pre 53 % [facility] [id number] 2.26 L/sec [facility] REK7981-%Pred-Post 81 % [facility] PEF-Post 401.2 [...] MAIN DLVA-#SD -1.624 ml/min/mmHg/L [facility] [id number] 60 % [facility] Narrative Performed At Performing Organization Address City/State/Zipcode Phone Number [facility] [address] [place] [address] in this encounter Visit Diagnoses Diagnosis Tobacco abuse - Primary Tobacco use disorder in this encounter
--- OUTSIDE RECORDS SUMMARY | 2019-01-25 08:44 | XMS REPORT | Continuity of Care Document ---
Author Author [facility] Address Unknown Phone Unavailable Allergies Active Description Code Type Severity Reaction Onset Reported/Identified Relationship to Patient Clinical Status Yes No Known Drug Allergies [id number] Drug Allergy Unknown N/A 04/17/2012 Medications There is no data. Problems Date Dx Coded Attending Type Code Diagnosis Diagnosed By 03/26/2013 724.2 LUMBAGO 03/26/2013 V70.0 ROUTINE GENERAL MEDICAL EXAMINATION AT A HEALTH CARE FACILITY 03/26/2013 REJI BELLO DDS 724.2 LUMBAGO 03/26/2013 REJI BELLO DDS V70.0 ROUTINE GENERAL MEDICAL EXAMINATION AT A HEALTH CARE FACILITY 06/20/2014 SAL PASCAL MD Ot 722.52 LUMB/LUMBOSAC DISC DEGEN 01/10/2019 SAL PASCAL MD, Ot 724.02 SPINAL STENOSIS, LUMBAR REG, W/OUT NEURO 01/10/2019 SAL PASCAL MD Ot V72.63 PRE-PROCEDURAL LABORATORY EXAMINATION 01/10/2019 SAL PASCAL MD Ot V74.8 SCREEN-BACTERIAL DIS NEC 01/16/2019 SAL PASCAL MD Ot 724.02 SPINAL STENOSIS, LUMBAR REG, W/OUT NEURO 01/16/2019 SAL PASCAL MD, Ot V72.63 PRE-PROCEDURAL LABORATORY EXAMINATION 01/16/2019 SAL PASCAL MD Ot V74.8 SCREEN-BACTERIAL DIS NEC 01/23/2019 ANNE-MARIE HARTMAN, KOMAL Barrera Ot 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 Encounters ACCT No. Visit Date/Time Discharge Status Pt. Type Provider Facility Loc./Unit Complaint [id number] 10/29/2013 00:00:00 10/29/2013 23:59:59 CLS Outpatient REJI BELLO DDS [id number] 03/26/2013 10:51:00 Document Registration [id number] 01/22/2019 15:20:00 ACT Outpatient HALLIE CORTEZ [facility] [id number] 06/19/2014 06:00:00 06/20/2014 09:25:00 DIS Inpatient SAL PASCAL MD [facility] SURGICAL LUMBAR STENOSIS [id number] 06/05/2014 08:47:00 06/05/2014 23:59:59 CLS Outpatient SAL PASCAL MD [facility] PREOP LUMBAR STENOSIS [id number] 04/03/2013 13:32:00 04/03/2013 23:59:59 CLS Outpatient [id number] 01/25/2019 08:37:00 ACT Emergency RADHA HARTMAN, DEBRA Bee [facility] ER SEVERE STOMACH PAIN [id number] 01/25/2019 08:21:00 ACT Outpatient KOMAL XIE MD [facility] ONC [id number] 01/24/2019 11:11:00 PEN Preadmit ELVER SPEAR [facility] RAD RUQ ABD PAIN
--- OUTSIDE RECORDS SUMMARY | 2019-01-25 08:44 | XMS REPORT | Encounter Summary ---
Author Author [facility] Organization [facility] Address Unknown Phone Unavailable Care Team Providers Care Strap Setter Name Role Phone Carroll Arce RN Unavailable Dilma Nam WAREHOUSE TEAM LEADER Unavailable Manjeet Benz MD PCP Michael Phelps MD Unavailable Yelitza He Unavailable Unavailable Taryn Enciso RN Unavailable Unavailable Encounter Details Care Team Description Date Type Department Dilma Nam, HEATHER [address] [place], [place] [id number] 11/07/2018 Hospital Clinlab Encounter Main [facility] 1st fl [address] [place] [address] Social History Date Tobacco Use Types Packs/Day [...] Comments Procedure Name Priority Date/Time Associated Diagnosis HEPATITIS C VIRAL LOAD Routine 11/07/2018 Chronic hepatitis C PCR QUANT 11:26 AM WAX BALL MOLDER without hepatic coma (HCC) COMPREHENSIVE METABOLIC Routine 11/07/2018 Chronic hepatitis C PANEL 11:26 AM WAX BALL MOLDER without hepatic coma (HCC) in this encounter Results * COMPREHENSIVE METABOLIC PANEL (11/07/2018 11:26 AM WAX BALL MOLDER) Sodium 137 137 - 147 MMOL/L [facility] Potassium 4.1 3.5 - 5.1 MMOL/L [facility] Chloride 105 98 - 110 MMOL/L [facility] Glucose 109 (H) 70 - 100 MG/DL [facility] Blood Urea Nitrogen 14 7 - 25 MG/DL [facility] Creatinine 0.93 0.4 - 1.24 MG/DL [facility] Calcium 9.6 8.5 - 10.6 MG/DL [facility] Total Protein 7.6 6.0 - 8.0 G/DL [facility] Total Bilirubin 0.6 0.3 - 1.2 MG/DL [facility] Albumin 4.3 3.5 - 5.0 G/DL [facility] Alk Phosphatase 62 25 - 110 U/L [facility] AST (SGOT) 21 7 - 40 U/L [facility] CO2 25 21 - 30 MMOL/L [facility] ALT (SGPT) 21 7 - 56 U/L [facility] Anion Gap 7 3 - 12 [facility] eGFR [...] for questions. Specimen Blood Performing Organization Address City/[facility] Phone Number [facility] [address] [place] [address] * HEPATITIS C VIRAL LOAD PCR QUANT (11/07/2018 11:26 AM WAX BALL MOLDER) Hepatitis C PCR HCV RNA Not Detected, <12 <12 IU/ML [facility] Quantitative IU/mL Comment: The test method detects HCV viral load using the Eduardo RealTime assay. Please correlate results with the clinical status of the patient. Log 10 HCV <1.08 <1.08 IU/mL [facility] Specimen Blood Performing Organization Address City/[facility]/Zipcode Phone Number MAIN LAB [address] [place] [address] in this encounter Visit Diagnoses Diagnosis Chronic hepatitis C without hepatic coma (HCC) Chronic hepatitis C without mention of hepatic coma in this encounter
[2019-01-25] MEDS ORDERED: VARE1TAB22 PO (09:03)
[2019-01-25] MEDS ORDERED: HYDR-3820 PO (09:03)
--- NOTE | 2019-01-25 09:52 | ED Abdominal Pain ---
General Chief Complaint: Abdominal/GI Problems Stated Complaint: SEVERE STOMACH PAIN Nursing Triage Note: RIGHT UPPER ABD PAIN STARTING Dec. Sepsis Screen: No Definite Risk Source of Information: Patient Exam Limitations: No Limitations History of Present Illness Date Seen by Provider: Jan 25, 2019 Time Seen by Provider: 09:47 Initial Comments The patient is a 58-year-old white male who comes to the emergency room today with a chief complaint of abdominal pain. This is been present since mid December. He came to the cancer clinic for a follow-up appointment. 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 He states that he had no adjunct leave chemotherapy. He had been seen elsewhere and a CT scan of the abdomen was recommended however could not be done until February 11. He reports the pain continues and has gotten worse. He has had nausea but no vomiting. He previously had a segmental colectomy done 2 years ago for large polyps. He states that they were told that the polyps were pre-cancerous but not malignant. He has been taking some opioid for pain and reports that his stools which had previously been liquid were now of normal consistency. There has been no blood Severity/Quality: Moderate Location: RUQ, RLQ Radiation: No Radiation Allergies and Home Medications Allergies Coded Allergies: No Known Drug Allergies (Unverified , 04/17/12) Patient Home Medication List Home Medication List Reviewed: Yes Review of Systems Review of Systems Constitutional: see HPI EENTM: Other Respiratory: No Symptoms Reported Cardiovascular: No Symptoms Reported Gastrointestinal: Abdominal Pain, Difficulty Swallowing Genitourinary: No Symptoms Reported Musculoskeletal: no symptoms reported Skin: no symptoms reported Psychiatric/Neurological: No Symptoms Reported Endocrine: No Symptoms Reported Hematologic/Lymphatic: No Symptoms Reported Past Rygehoj-Ighvby-Rptoox Hx Patient Social History Alcohol Use: Past History Recreational Drug Use: No (PAST HISTORY) Smoking Status: Former Smoker Recent Foreign Travel: No Contact w/Someone Who Travel: No Recent Infectious Disease Expo: No Immunizations Up To Date Tetanus Booster (TDap): Unknown Past Medical History Surgeries: Yes (NECK FUSION, MANUEL IN RIGHT LEG, PLATE IN LEFT HAND) Respiratory: No Cardiac: No Neurological: No Reproductive Disorders: No Genitourinary: No Gastrointestinal: Yes Gastroesophageal Reflux, Hepatitis Musculoskeletal: Yes (LUMBAR STENOSIS, ) Endocrine: No 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 ) Did You Recieve Any Treatments: Yes What Type of Treatment Did You: Radiation Psychosocial: No Integumentary: No Blood Disorders: No Adverse Reaction/Blood Tranf: No Family Medical History Family history: Cardiovascular disease 19 FATHER Family history: Hypertension 19 MOTHER Physical Exam Vital Signs Vital Signs - First Documented 01/25/19 08:48 Temp 97.6 Pulse 70 Resp 16 B/P (MAP) 148/87 (107) Pulse Ox 98 O2 Delivery Room Air Capillary Refill : Less Than 3 Seconds Height/Weight/BMI Height: 5'6.00" Weight: 163lbs. oz. 73.027006le; BMI Method:Stated General Appearance: mild distress HEENT: normal ENT inspection Neck: non-tender, full range of motion, supple, normal inspection Respiratory: chest non-tender, lungs clear, normal breath sounds, no respiratory distress, no accessory muscle use Cardiovascular: normal peripheral pulses, regular rate, rhythm, no edema, no gallop, no JVD, no murmur Gastrointestinal: abnormal bowel sounds (decreased), tenderness, other Extremities: normal range of motion Back: normal inspection Neurologic/Psychiatric: fly raiser lockstitch II-XII nml as tested, no motor/sensory deficits, alert, normal mood/affect, oriented x 3 Progress/Results/Core Measures Results/Orders Lab Results Laboratory Tests Test 01/25/19 09:44 01/25/19 10:21 Range/Units White Blood Count 11.3 H 4.3-11.0 10^3/uL Red Blood Count 4.50 4.35-5.85 10^6/uL Hemoglobin 13.5 13.3-17.7 G/DL Hematocrit 40 40-54 % Mean Corpuscular Volume 89 80-99 FL Mean Corpuscular Hemoglobin 30 25-34 PG Mean Corpuscular Hemoglobin Concent 34 32-36 G/DL Red Cell Distribution Width 13.2 10.0-14.5 % Platelet Count 304 130-400 10^3/uL Mean Platelet Volume 9.2 7.4-10.4 FL Neutrophils (%) (Auto) 71 42-75 % Lymphocytes (%) (Auto) 17 12-44 % Monocytes (%) (Auto) 11 0-12 % Eosinophils (%) (Auto) 1 0-10 % Basophils (%) (Auto) 0 0-10 % Neutrophils # (Auto) 8.0 H 1.8-7.8 X 10^3 Lymphocytes # (Auto) 1.9 1.0-4.0 X 10^3 Monocytes # (Auto) 1.3 H 0.0-1.0 X 10^3 Eosinophils # (Auto) 0.1 0.0-0.3 10^3/uL Basophils # (Auto) 0.0 0.0-0.1 10^3/uL Sodium Level 135 135-145 MMOL/L Potassium Level 4.4 3.6-5.0 MMOL/L Chloride Level 100 98-107 MMOL/L Carbon Dioxide Level 27 21-32 MMOL/L Anion Gap 8 5-14 MMOL/L Blood Urea Nitrogen 16 7-18 MG/DL Creatinine 0.84 0.60-1.30 MG/DL Estimat Glomerular Filtration Rate > 60 BUN/Creatinine Ratio 19 Glucose Level 99 70-105 MG/DL Calcium Level 9.5 8.5-10.1 MG/DL Corrected Calcium 9.6 8.5-10.1 MG/DL Total Bilirubin 0.4 0.1-1.0 MG/DL Aspartate Amino Transf (AST/SGOT) 17 5-34 U/L Alanine Aminotransferase (ALT/SGPT) 15 0-55 U/L Alkaline Phosphatase 75 40-136 U/L Total Protein 7.1 6.4-8.2 GM/DL Albumin 3.9 3.2-4.5 GM/DL Urine Color YELLOW Urine Clarity CLEAR Urine pH 7 5-9 Urine Specific [place] 1.010 L 1.016-1.022 Urine Protein NEGATIVE NEGATIVE Urine Glucose (UA) NEGATIVE NEGATIVE Urine Ketones NEGATIVE NEGATIVE Urine Nitrite NEGATIVE NEGATIVE Urine Bilirubin NEGATIVE NEGATIVE Urine Urobilinogen NORMAL NORMAL MG/DL Urine Leukocyte Esterase NEGATIVE NEGATIVE Urine RBC (Auto) NEGATIVE NEGATIVE Urine RBC NONE /HPF Urine WBC NONE /HPF Urine Crystals NONE /LPF Urine Bacteria NEGATIVE /HPF Urine Casts NONE /LPF Urine Mucus NEGATIVE /LPF Urine Culture Indicated NO My Orders Orders - DEBRA GARCIA MD Cbc With Automated Diff (01/25/19 09:32) Comprehensive Metabolic Panel (01/25/19 09:32) Ua Culture If Indicated (01/25/19 09:32) Fentanyl Injection (Sublimaze Injection (01/25/19 10:00) Ondansetron Injection (Zofran Injectio (01/25/19 10:00) Ns Iv 1000 Ml (Sodium Chloride 0.9%) (01/25/19 10:30) Ct Abdomen/Pelvis W (01/25/19 10:20) Iohexol Injection (Omnipaque 350 Mg/Ml 1 (01/25/19 10:30) Received Contrast (Contrast Received) (01/25/19 10:30) Sodium Chloride Flush (Catheter Flush Sy (01/25/19 10:30) Ns (Ivpb) (Sodium Chloride 0.9% Ivpb Bag (01/25/19 10:30) Medications Given in ED Current Medications Medications Dose Ordered Sig/Malini Route Start Time Stop Time Status Last Admin Dose Admin Fentanyl Citrate 50 mcg ONCE ONCE IVP 01/25/19 10:00 01/25/19 10:01 DC 01/25/19 10:05 50 MCG Ondansetron HCl 8 mg ONCE ONCE IVP 01/25/19 10:00 01/25/19 10:01 DC 01/25/19 10:05 8 MG Vital Signs/I&O 01/25/19 08:48 Temp 97.6 Pulse 70 Resp 16 B/P (MAP) 148/87 (107) Pulse Ox 98 O2 Delivery Room Air Blood Pressure Mean: 107 Departure Communication (Admissions) Dr. Page called reporting a abnormality on the CT which seemed to be a fluid collection on the right aspect of the liver. I reviewed this and showed the films to the patient. [address] Brennan. 1140 page returned. He will come to the ER for evaluation of the patient. The hope would be that we might do a CT-guided aspiration of this yet this afternoon [address] Brennan and Dr. Page. The patient will be tapped this afternoon in the CT suite Impression Primary Impression: right sided subcapsular fluid collection, liver Disposition: ADMITTED INPATIENT Condition: Stable/Unchanged Admissions Decision to Admit Reason: Admit from ER (General) Decision to Admit/Date: Jan 25, 2019 Time/Decision to Admit Time: 12:11 DEBRA GARCIA MD Jan 25, 2019 09:52
[2019-01-25 09:54] LABS: BASOPHILS % (AUTO) 0 % (0-10); EOSINOPHILS # (AUTO) 0.1 10^3/uL (0.0-0.3); EOSINOPHILS % (AUTO) 1 % (0-10); HEMATOCRIT 40 % (40-54); HEMOGLOBIN 13.5 G/DL (13.3-17.7); LYMPHOCYTES # (AUTO) 1.9 X 10^3 (1.0-4.0); LYMPHOCYTES % (AUTO) 17 % (12-44); MEAN CORPUSCULAR HEMOGLOBIN 30 PG (25-34); MEAN CORPUSCULAR HGB CONC 34 G/DL (32-36); MEAN CORPUSCULAR VOLUME 89 FL (80-99); MEAN PLATELET VOLUME 9.2 FL (7.4-10.4); MONOCYTES # (AUTO) 1.3 X 10^3 (0.0-1.0); MONOCYTES % (AUTO) 11 % (0-12); NEUTROPHILS % (AUTO) 71 % (42-75); PLATELET COUNT 304 10^3/uL (130-400); RED CELL DISTRIBUTION WIDTH 13.2 % (10.0-14.5); WHITE BLOOD COUNT 11.3 10^3/uL (4.3-11.0)
--- NOTE | 2019-01-25 09:57 | NUR ---
DR MCGUIRE PT WOULD LIKE SOMETHING FOR THE PAIN
[2019-01-25] MEDS ORDERED: ONDANSETRON 4 MG/2 ML (SDV) Z0FRAN IVP ONE (10:00)
[2019-01-25] MEDS ORDERED: fentaNYL INJECTION 100 MCG/2 ML AMP IVP ONE ×2 (10:00→13:15)
[2019-01-25 10:11] LABS: ALANINE AMINOTRANSFERASE 15 U/L (0-55); ALBUMIN 3.9 GM/DL (3.2-4.5); ALKALINE PHOSPHATASE 75 U/L (40-136); BILIRUBIN,TOTAL 0.4 MG/DL (0.1-1.0); BUN/CREATININE RATIO 19; CALCIUM 9.5 MG/DL (8.5-10.1); CARBON DIOXIDE 27 MMOL/L (21-32); CHLORIDE 100 MMOL/L (98-107); CREATININE SERUM 0.84 MG/DL (0.60-1.30); GFR ESTIMATED > 60; GLUCOSE 99 MG/DL (70-105); POTASSIUM 4.4 MMOL/L (3.6-5.0); SODIUM 135 MMOL/L (135-145); TOTAL PROTEIN 7.1 GM/DL (6.4-8.2)
[2019-01-25] MEDS ORDERED: NS IV 1000 ML 1,000 ML IV SCH (10:30)
[2019-01-25] MEDS ORDERED: NS 100 ML (IVPB) BAG IV ONE (10:30)
[2019-01-25] MEDS ORDERED: IOHEXOL 350 MG/ML 100 ML (OMNIPAQUE 350) VIAL IV ONE (10:30)
[2019-01-25] MEDS ORDERED: CATHETER FLUSH 10 ML SYR IV PRN ×2 (10:30→15:00)
[2019-01-25] MEDS ORDERED: RECEIVED CONTRAST 20 ML VIAL IV SCH (10:30)
--- NOTE | 2019-01-25 11:00 | NUR ---
REPORT GIVEN TO Jamarcus SQUIRES.
--- NOTE | 2019-01-25 11:05 | NUR ---
report received care assumed. pt introduced to this rn. Pt reports that pain is 6/10. reported to Dr Pearce
[2019-01-25 11:15] LABS: BACTERIA,URINE NEGATIVE /HPF; BILIRUBIN,URINE NEGATIVE (NEGATIVE); CLARITY,URINE CLEAR; COLOR,URINE YELLOW; GLUCOSE, URINE (UA) NEGATIVE (NEGATIVE); KETONES,URINE NEGATIVE (NEGATIVE); LEUKOCYTE ESTERASE ,URINE NEGATIVE (NEGATIVE); NITRITE,URINE NEGATIVE (NEGATIVE); PH,URINE 7 (5-9); PROTEIN,URINE NEGATIVE (NEGATIVE); UROBILINOGEN,URINE NORMAL (NORMAL)
--- NOTE | 2019-01-25 11:15 | Diagnostic Imaging Report ---
PROCEDURE: CT abdomen and pelvis with contrast. TECHNIQUE: Multiple contiguous axial images were obtained through the abdomen and pelvis after administration of intravenous contrast. INDICATION: Right upper quadrant abdominal pain. COMPARISON: Comparison is made with the prior CT chest from [facility] on 12/17/2018. FINDINGS: The lung bases are clear. There is a large fluid collection identified along the surface of the right lobe of the liver which appears to be perihepatic or subcapsular. This has a cephalocaudal extent of approximately 16 cm. In greatest transverse dimension, it is approximately 5.5 cm. The fluid collection commences at the level of the dome of the liver and extends inferiorly to just below the right lobe liver edge. This is partially incorporated into the right abdominal wall musculature. There may be some calcifications along the wall of the fluid collection. No gas within the fluid collection is identified. This fluid collection has apparently increased in size when compared with the prior CT from on 12/17/2018 when the subcapsular component was much smaller. The liver parenchyma itself appears normal. The gallbladder is surgically absent. There is no biliary ductal dilatation. The pancreas and spleen are unremarkable. The adrenal glands and kidneys are unremarkable. The aorta and iliac vessels are heavily calcified but nonaneurysmal. There are post surgical changes of a right hemicolectomy. The small bowel loops are of normal caliber. There is no free fluid in the abdomen. The bladder does show some very slight wall thickening and minimal nodularity along the right lateral wall, indeterminate. The prostate is unremarkable. No definite abdominal or pelvic lymphadenopathy is seen. The bony structures demonstrate postop changes of posterior instrumented fusion at the L4-5 level transfixed by vertical stabilization rods and pedicle screws. There are also postop changes of anterior lumbar interbody fusion at L4-5. IMPRESSION: 1. Status post right hemicolectomy. 2. Multiloculated fluid collection along the right perihepatic/subcapsular space which is partially incorporated into the anterior abdominal wall. In light of the prior surgery, this may represent a post operative fluid collection such as abscess or perhaps seroma/hematoma; however, this has increased in size when compared with the recent CT chest study from 12/17/2018. No gas within the fluid collection is identified. Dictated by: Dictated on workstation # [id number]
--- NOTE | 2019-01-25 12:30 | NUR ---
medical records request faxed to [facility] for past surgical records
[2019-01-25] MEDS ORDERED: fentaNYL INJECTION 100 MCG/2 ML AMP IVP STA (12:57)
--- NOTE | 2019-01-25 13:14 | NUR ---
report to Sun SQUIRES
[2019-01-25 13:15] LABS: INR 0.9 (0.8-1.4); PROTHROMBIN TIME PATIENT 12.6 SEC (12.2-14.7)
[2019-01-25] MEDS ORDERED: MIDAZOLAM 2 MG/2 ML (VERSED) VIAL IVP ONE (13:15)
[2019-01-25] MEDS ORDERED: LIDOCAINE 1% INJ 20 ML 20 ML VIAL INJ ONE (13:15)
[2019-01-25] MEDS ORDERED: LIDOCAINE 1% INJ 20 ML 20 ML VIAL ONE (13:30)
[2019-01-25] MEDS ORDERED: MIDAZOLAM 2 MG/2 ML (VERSED) VIAL ONE (13:30)
--- NOTE | 2019-01-25 13:35 | NUR ---
report to xray
--- NOTE | 2019-01-25 13:38 | History & Physicial ---
History of Present Illness History of Present Illness Reason for visit/HPI right-sided abdominal pain of 2 weeks. Patient with previously known fluid collection/abscess within the liver, being followed up at [facility]. Presented to our emergency room with unresolved right-sided abdominal pain. Evaluation has confirmed a large intrahepatic fluid collection/abscess with calcification of the medial wall. This appears to be amenable to percutaneous drainage under CT guidance, by the radiologist. Date of Admission Jan 25, 2019 at 12:10 Date Seen by a Provider: Jan 25, 2019 Time Seen by a Provider: 11:35 I consulted on this patient on 01/25/19 13:32 Attending Physician Jareth Portillo MD Admitting Physician No,Local Physician Consult Allergies and Home Medications Allergies Coded Allergies: No Known Drug Allergies (Unverified , 04/17/12) Patient Home Medication List Home Medication List Reviewed: Yes Past Oaarzcu-Dbpeng-Oqvayk Hx Patient Social History Marrital Status: single Employed/Student: unemployed Alcohol Use: Past History Recreational Drug Use: No (PAST HISTORY) Smoking Status: Former Smoker Recent Foreign Travel: No Contact w/other who traveled: No Recent Infectious Disease Expo: No Immunizations Up To Date Tetanus Booster (TDap): Unknown Surgeries Yes (NECK FUSION, MANUEL IN RIGHT LEG, PLATE IN LEFT HAND) Bowel Surgery Respiratory Yes Chronic Bronchitis Cardiovascular No Neurological No Reproductive System Hx Reproductive Disorders: No Genitourinary No Gastrointestinal Yes Gastroesophageal Reflux, Hepatitis, Polyps Musculoskeletal Yes (LUMBAR STENOSIS, ) Fibromyalgia Endocrine History of Endocrine Disorders: No Cancer Yes (VOCAL CORD STAGE 2 - RECIEVES RADATION M-F. ) Oral Did You Recieve Any Treatments: Yes Type of Treatment: Radiation Psychosocial History of Psychiatric Problem: No Integumentary History of Skin or Integumenta: No Blood Transfusions History of Blood Disorders: No Adverse Reaction to a Blood Tr: No Family Medical History Family Hx: Family history: Cardiovascular disease 19 FATHER Family history: Hypertension 19 MOTHER Review of Systems Constitutional: fever, malaise, weakness EENTM: see HPI Respiratory: see HPI Cardiovascular: no symptoms reported Gastrointestinal: see HPI Genitourinary: no symptoms reported Skin: no symptoms reported Psychiatric/Neurological: No Symptoms Reported, Anxiety Physical Exam Vital Signs Vital Signs - First Documented 01/25/19 08:48 Temp 97.6 Pulse 70 Resp 16 B/P (MAP) 148/87 (107) Pulse Ox 98 O2 Delivery Room Air Capillary Refill : Less Than 3 Seconds Height, Weight, BMI Height: 5'6.00" Weight: 163lbs. oz. 73.926590py; BMI Method:Stated General Appearance: Anxious, Moderate Distress Neck: Normal Inspection Cardiovascular: Regular Rate, Rhythm Gastrointestinal: Tenderness Rectal: Deferred Extremity: Normal Inspection Neurologic/Psychiatric: Alert, Oriented x3 Skin: Warm/Dry Comments midline scar from open right colon resection 2 years ago. No incisional hernia. Slight tenderness along the right-sided abdomen. Evidence of previous percutaneous drain placement along the right side. Assessment/Plan Assessment and Plan gentleman with a previous history of right colon resection, complicated by intra -abdominal abscesses. I have requested the operative report and the associated pathology reports from [facility] for review.with regard to the fluid collection/abscess within the liver, I have requested the radiologist to perform a continuous drainage under CT guidance. This will be performed this afternoon. Depending on the nature of the drainage material, the role of antibiotic be decided upon. Admission Diagnosis Admission Status: Observation JARETH PORTILLO MD Jan 25, 2019 13:38
[2019-01-25] MEDS ORDERED: fentaNYL INJECTION 100 MCG/2 ML AMP IVP PRN (13:45)
[2019-01-25] MEDS ORDERED: ONDANSETRON 4 MG/2 ML (SDV) Z0FRAN IVP PRN (13:45)
--- NOTE | 2019-01-25 14:30 | NUR ---
REC'D PER BED FROM RADIOLOGY. SEE ASSESSMENT. SISTERS AT BEDSIDE. DRAIN D/I RT ABD WITH PURULENT DRAINAGE. HL PATENT LT AC.
[2019-01-25] MEDS ORDERED: RANI150T90 PO (15:00)
[2019-01-25] MEDS ORDERED: SILD100T67 PO (15:00)
--- NOTE | 2019-01-25 15:00 | NUR ---
SPOKE WITH THE PATIENT ABOUT HIS MEDICATIONS. WE WENT OVER THE EXT MED HX AND HE VERIFIED HOW HE TAKES THEM. HIS HYDROCODONE APPEARS TO HAVE BEEN PRESCRIBED Q6H PRN HOWEVER HE WAS ONLY GIVEN 30 TABS AND STATES HE WAS SUPPOSED TO MAKE THAT LAST A MONTH. HE STATES HE HAS JUST BEEN TAKING IT WHEN THE PAIN GETS REALLY BAD. HE IS CURRENTLY TAKING THE CHANTIX BID WELL. HE FILLED SILDENAFIL 100MG IN OCTOBER FOR 5 TABS, HE STATES HE HAS NOT USED THIS YET BUT DOES HAVE IT ON HAND IF NEEDED. HE FILLED ANORO IN OCTOBER WELL, HE STATES HE IS OUT OF IT AND DOES NOT SEEM THOUGH HE PLANS TO REFILL IT. I DID NOT INCLUDE IT ON THE MED REC AT THIS TIME. HE TAKES ZANTAC BID OTC.
--- NOTE | 2019-01-25 15:09 | Pre-Op Note & Conscious Sedat ---
Pre-Operative Progress Note H&P Reviewed The H&P was reviewed, patient examined and no changes noted. Date H&P Reviewed: Jan 25, 2019 Time H&P Reviewed: 13:00 Pre-Op Diagnosis: subhepatic fluid collection Conscious Sedation Pre-Proced Time 13:00 ASA Score 2 For ASA 3 and 4: Consider anesthesia and medical clearance. Also, for patients with a history of failed moderate sedation consider anesthesia. Airway Lungs Heart ASA score ASA 1: a normal healthy patient ASA 2: a patient with a mild systemic disease (mid diabetes, controlled hypertension, obesity ASA 3: a patient with a severe systemic disease that limits activity (angina , COPD, prior Myocardial infarction) ASA 4: a patient with an incapacitating disease that is a constant threat to life (CHF, renal failure) ASA 5: a moribund patient not expected to survive 24 hrs. (ruptured aneurysm) ASA 6: a declared brain- patient whose organs are being harvested. For emergent operations, add the letter E after the classification Mallampati Classification Grade 2 Sedation Plan Analgesia, Amnesia, Plan communicated to team members, Discussed options with patient/fam, Discussed risks with patient/fam The patient is an appropriate candidate to undergo the planned procedure, sedation, and anesthesia. The patient immediately re-assessed prior to indication. SALLY RAM MD Jan 25, 2019 15:09
[2019-01-25] MEDS: HYDROcodone/APAP 5 MG/325 MG (LORTAB) TAB PO PRN ×3 (15:20→23:53)
[2019-01-25] MEDS: NS IV 1000 ML 1,000 ML IV SCH (15:21)
--- NOTE | 2019-01-25 15:36 | Diagnostic Imaging Report ---
INDICATION: Right upper quadrant fluid collection. Patient presents for CT-guided drainage. TECHNIQUE: The patient was brought to the CT suite and placed on the table in the supine position. Axial imaging through the abdomen was performed to evaluate for an appropriate entry site. The study was performed with conscious sedation with Radiology nursing and constant patient monitoring. The patient was given a total of 50 ? of Versed intravenously. The procedure time was approximately 9 minutes. The right abdomen was prepped and draped in the usual sterile fashion. A small amount of 1% lidocaine was utilized for local anesthesia. A Yueh needle was advanced into the fluid collection in the right subhepatic space. The Yueh was exchanged over an 035 guidewire. The tract in the right abdomen was dilated with 6 Taiwanese and 8 Taiwanese dilators. An 8.5 Taiwanese all-purpose pigtail catheter was advanced into the right upper quadrant fluid collection. The pigtail was formed. Purulent fluid was aspirated and sent to the Lab for testing. The catheter was affixed to the patient's skin and placed to a James drain. The patient tolerated the procedure well and left the Department in stable condition. IMPRESSION: Successful CT-guided drain placement into the right perihepatic/subhepatic fluid collection utilizing conscious sedation. The patient tolerated the procedure well. Dictated by: Dictated on workstation # [id number]
[2019-01-25] MEDS ORDERED: PIPERACILLIN/TAZO 4.5 GM/NS 100 ML IV NR ×2 (15:41)
--- NOTE | 2019-01-25 15:53 | NUR ---
SISTER CAME TO DESK. STATES PT ANGRY AND THREW PHONE AT HER BECAUSE HE WAS ON HOLD WITH DIETARY FOR >5 MINUTES. EXPLAINED TO PT THAT IT DID SOMETIMES TAKE A FEW MINUTES TO GET AHOLD OF DIETARY, AND THAT THROWING THINGS WAS NOT APPROPRIATE AT THIS FACILITY. DR. PORTILLO NOTIFIED.
--- NOTE | 2019-01-25 16:47 | NUR ---
FOUND ENTIRE DINNER TRAY ON FLOOR WITH BROKEN DISHES. PT STATES HE TRIED TO MOVE TABLE.
[2019-01-25] MEDS ORDERED: FLU QUADRIvalent (5+ YOA) 2018-2019 (AFLURIA) 0.5 ML IM ONE (17:00)
[2019-01-25] MEDS: FAMOTIDINE 20 MG (PEPCID) TABLET PO SCH (20:42)
[2019-01-25] MEDS: CATHETER FLUSH 10 ML SYR IV SCH (20:43)
[2019-01-25] MEDS: PIPERACILLIN/TAZO 4.5 GM/NS 100 ML IV SCH ×2 (21:42)
[2019-01-26] VITALS: BP 119/77
[2019-01-26] MEDS: NS IV 1000 ML 1,000 ML IV SCH (01:20)
[2019-01-26 04:28] VITALS: BP 134/86
[2019-01-26] MEDS: CATHETER FLUSH 10 ML SYR IV SCH (06:00)
[2019-01-26] MEDS: PIPERACILLIN/TAZO 4.5 GM/NS 100 ML IV SCH ×2 (06:00)
[2019-01-26 07:50] VITALS: BP 135/87
[2019-01-26] MEDS: HYDROcodone/APAP 5 MG/325 MG (LORTAB) TAB PO PRN (08:18)
[2019-01-26] MEDS: FAMOTIDINE 20 MG (PEPCID) TABLET PO SCH (08:18)
--- NOTE | 2019-01-26 09:16 | Progress Note (SOAP) ---
Subjective Date Seen by a Provider: Jan 26, 2019 Time Seen by a Provider: 09:16 Subjective/Events-last exam abdominal pain much improved. Drainage from the Ramiro-Landa placed by the radiologist, a total of 220 mL so far. Gram stain negative for bacteria, most likely due to exposure to repeated courses of antibiotics Review of Systems General: No Chills, No Night Sweats, No Fatigue, No Malaise HEENT: No Head Aches, No Eye Pain, No Ear Pain, No Dysphasia, No Sinus Congestion, No Post Nasal Drip, No Sore Throat Pulmonary: No Dyspnea; Cough; No Pleuritic Chest Pain Cardiovascular: No: Chest Pain, Palpitations, Orthopnea, Paroxysmal Noc. Dyspnea, Edema, Lt Headedness Gastrointestinal: No: Nausea, Vomiting, Abdominal Pain, Diarrhea, Constipation , Melena, Hematochezia Genitourinary: No Dysuria, No Frequency, No Incontinence, No Hematuria, No Retention Neurological: No: Weakness, Numbness, Incoordination, Change in speech, Confusion, Seizures, Other Objective Exam Vital Signs Date Time Temp Pulse Resp B/P (MAP) Pulse Ox O2 Delivery O2 Flow Rate FiO2 01/26/19 07:50 99.0 79 16 135/87 (103) 97 Room Air 01/26/19 04:28 96.5 72 16 134/86 (102) 97 Room Air 01/26/19 00:00 98.2 80 18 119/77 (91) 97 Room Air 01/25/19 19:35 Room Air 01/25/19 19:17 96.1 73 16 124/81 (95) 99 Room Air 01/25/19 16:48 Room Air 01/25/19 15:30 99.2 66 18 156/81 (106) 100 Room Air 01/25/19 14:26 97.5 64 20 132/68 97 Room Air 01/25/19 14:15 78 11 130/78 96 Room Air 01/25/19 14:10 77 14 129/79 95 Room Air 01/25/19 14:05 81 15 115/80 96 Room Air 01/25/19 14:00 78 14 115/80 96 Room Air 01/25/19 13:35 73 16 136/71 (92) 99 I & O 01/26/19 07:00 Intake Total 1820 ml Output Total 3095 ml Balance -1275 ml Capillary Refill : Less Than 3 SecondsLess Than 3 Seconds General Appearance: Anxious Respiratory: Lungs Clear Cardiovascular: Regular Rate, Rhythm Gastrointestinal: non tender, soft Neurologic/Psychiatric: Alert, Oriented x3 Skin: Warm/Dry Other comments Purulent output from the Ramiro-Landa drain. No erythema around the drain site. Results Lab Laboratory Tests 01/25/19 09:44: White Blood Count 11.3H, Red Blood Count 4.50, Hemoglobin 13.5, Hematocrit 40, Mean Corpuscular Volume 89, Mean Corpuscular Hemoglobin 30, Mean Corpuscular Hemoglobin Concent 34, Red Cell Distribution Width 13.2, Platelet Count 304, Mean Platelet Volume 9.2, Neutrophils (%) (Auto) 71, Lymphocytes (%) (Auto) 17, Monocytes (%) (Auto) 11, Eosinophils (%) (Auto) 1, Basophils (%) (Auto) 0, Neutrophils # (Auto) 8.0H, Lymphocytes # (Auto) 1.9, Monocytes # (Auto) 1.3H, Eosinophils # (Auto) 0.1, Basophils # (Auto) 0.0, Prothrombin Time 12.6, INR Comment 0.9, Sodium Level 135, Potassium Level 4.4, Chloride Level 100, Carbon Dioxide Level 27, Anion Gap 8, Blood Urea Nitrogen 16, Creatinine 0.84, Estimat Glomerular Filtration Rate > 60, BUN/Creatinine Ratio 19, Glucose Level 99, Calcium Level 9.5, Corrected Calcium 9.6, Total Bilirubin 0.4, Aspartate Amino Transf (AST/SGOT) 17, Alanine Aminotransferase (ALT/SGPT) 15, Alkaline Phosphatase 75, Total Protein 7.1, Albumin 3.9 01/25/19 10:21: Urine Color YELLOW, Urine Clarity CLEAR, Urine pH 7, Urine Specific [place] 1.010L, Urine Protein NEGATIVE, Urine Glucose (UA) NEGATIVE, Urine Ketones NEGATIVE, Urine Nitrite NEGATIVE, Urine Bilirubin NEGATIVE, Urine Urobilinogen NORMAL, Urine Leukocyte Esterase NEGATIVE, Urine RBC (Auto) NEGATIVE, Urine RBC NONE, Urine WBC NONE, Urine Crystals NONE, Urine Bacteria NEGATIVE, Urine Casts NONE, Urine Mucus NEGATIVE, Urine Culture Indicated NO Microbiology 01/25/19 Gram Stain - Final, Resulted 01/25/19 Anaerobic Culture, Resulted Pending 01/25/19 Surgical Culture - Preliminary, Resulted No growth Assessment/Plan Assessment/Plan Assess & Plan/Chief Complaint gentleman with a liver abscess. Previous right colon resection. Carcinoma of the vocal cord, receiving radiation therapy. 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 I have requested the operative report and the associated pathology reports from [facility] for review.with regard to the fluid collection/abscess within the liver, I have requested the radiologist to perform a continuous drainage under CT guidance. This will be performed this afternoon. Depending on the nature of the drainage material, the role of antibiotic be decided upon. DVT/VTE Risk/Contraindication: Risk Factor Score Per Nursin RFS Level Per Nursing on Admit: 4+=Very High JARETH PORTILLO MD Jan 26, 2019 09:16
[2019-01-26] MEDS ORDERED: ACHD5005 PO (09:17)
[2019-01-26] MEDS ORDERED: AMOX-358 PO (09:18)
--- NOTE | 2019-01-26 09:19 | Discharge Inst-Simple/Standard ---
Discharge Inst-Standard Discharge Medications New, Converted or Re-Newed RX: RX on Chart Patient Instructions/Follow Up Plan of Care/Instructions/FU: please educate on YAQUELIN care. Stool softeners [id number]. Follow-up with me on 02/04/19 Activity as Tolerated: Yes Discharge Diet: No Restrictions JARETH PORTILLO MD Jan 26, 2019 09:19
[2019-01-26 10:43] VITALS: BP 135/87
== END 2019-01-26 10:44 | disposition home or self-care (01) | DRG 443 ==
LOC: EDUNIT# 08:34 → ER 08:37 → 4TH 12:10
PROVIDERS: ADMIT Surgery; ATTEND Surgery
PROC: 0F913ZX Drainage of Right Lobe Liver, Percutaneous Approach, Diagnostic (ICD-10-PCS; principal; 2019-01-25)
DX: K75.0 Abscess of liver (principal); C32.0 Malignant neoplasm of glottis; K21.9 Gastro-esophageal reflux disease without esophagitis; Z87.891 Personal history of nicotine dependence; Z98.1 Arthrodesis status
CPT/HCPCS: 36415; 74177; 77012; 80053; 81000; 85025; 85610; 87070; 87075; 87076; 87185; 87205; 96361; 96374; 96375; 96376; G0378

== ENCOUNTER 2019-02-04 08:27 | Outpatient (RCR) | payer MEDICARE, MEDICAID ==
[~2019-02-04 08:27] MED LIST changes: +ACHD5005 PO; +AMOX-358 PO; +HYDR-3820 PO; +RANI150T90 PO; +SILD100T67 PO; +VARE1TAB22 PO
== END 2019-02-06 08:55 | disposition home or self-care (01) ==
LOC: ONC 08:27
PROVIDERS: ATTEND Radiology Radiation Oncology
DX: C32.0 Malignant neoplasm of glottis (principal)
CPT/HCPCS: 77290; 77295; 77300; 77334; 77336; 77417; 99204

== ENCOUNTER → 2019-02-05 | Outpatient (CLI) | payer MEDICARE, MEDICAID ==
[~2019-02-05] MED LIST changes: +HOLD METFORMIN - RECEIVED CONTRAST 20 ML VIAL IV SCH; +IOHEXOL 350 MG/ML 100 ML (OMNIPAQUE 350) VIAL IV ONE; +NS 100 ML (IVPB) BAG IV ONE
--- NOTE | 2019-02-05 09:35 | Diagnostic Imaging Report ---
PROCEDURE: CT abdomen and pelvis with contrast. TECHNIQUE: Multiple contiguous axial images were obtained through the abdomen and pelvis after administration of intravenous contrast. INDICATION: Intrahepatic abscess. Comparison is made with prior examination from 01/25/2019. FINDINGS: The heart size is normal. The lung bases are clear. The liver is normal in size without focal lesions. Gallbladder surgically absent. The surgical drain remains in the intrahepatic location. No residual fluid collection is appreciated. The drain could be removed. Spleen is normal. Pancreas and adrenal glands are unremarkable. Kidneys are normal in appearance. There is some atherosclerotic calcification of the aorta which is nonaneurysmal. Bowel gas pattern is nonspecific. There is no free air. There is no ascites. No focal inflammatory changes. Bladder is normal. There are postsurgical changes of an L4-5 fusion. There is otherwise mild lumbar spondylosis. IMPRESSION: The previously described infrahepatic fluid collection has essentially resolved. I suspect the surgical drain could be removed. No other acute abnormality in the abdomen or pelvis Dictated by: Dictated on workstation # [id number]
== END ==
LOC: RAD 07:26
PROVIDERS: ATTEND Nurse Practitioner Adult Health
DX: K75.0 Abscess of liver (principal); Z90.49 Acquired absence of other specified parts of digestive tract
CPT/HCPCS: 74177

== ENCOUNTER 2019-03-12 08:18 | Outpatient (RCR) | payer MEDICARE, MEDICAID ==
[~2019-03-12 08:18] MED LIST changes: -HOLD METFORMIN - RECEIVED CONTRAST 20 ML VIAL IV SCH; -IOHEXOL 350 MG/ML 100 ML (OMNIPAQUE 350) VIAL IV ONE; -NS 100 ML (IVPB) BAG IV ONE
== END 2019-04-18 | disposition home or self-care (01) ==
LOC: ONC 08:18
PROVIDERS: ATTEND Radiology Radiation Oncology
DX: Z51.0 Encounter for antineoplastic radiation therapy (principal); C32.0 Malignant neoplasm of glottis
CPT/HCPCS: 77295; 77300; 77307; 77334; 77336; 77417

== ENCOUNTER 2019-04-23 12:41 | Outpatient (RCR) | payer MEDICARE, MEDICAID | END 2019-07-22 | disposition home or self-care (01) | LOC: ONC 12:41 | PROVIDERS: ATTEND Radiology Radiation Oncology | DX: C32.0 Malignant neoplasm of glottis (principal) | CPT/HCPCS: 99203; 99213 ==

== ENCOUNTER → 2019-07-29 | Outpatient (CLI) | payer MEDICARE, MEDICAID ==
[~2019-07-29] MED LIST changes: +HOLD METFORMIN - RECEIVED CONTRAST 20 ML VIAL IV SCH; +IOHEXOL 350 MG/ML 100 ML (OMNIPAQUE 350) VIAL IV ONE; +NS 100 ML (IVPB) BAG IV ONE
[2019-07-29 08:40] LABS: BUN/CREATININE RATIO 18; CREATININE SERUM 0.91 MG/DL (0.60-1.30); GFR ESTIMATED > 60
--- NOTE | 2019-07-29 09:49 | Diagnostic Imaging Report ---
PROCEDURE: CT neck soft tissue with contrast. TECHNIQUE: Multiple contiguous axial images were obtained through the neck after the administration of contrast. Auto Exposure Controls were utilized during the CT exam to meet ALARA standards for radiation dose reduction. INDICATION: Larynx carcinoma. The visualized intracranial structures are unremarkable. Posterior nasopharynx and oropharynx are unremarkable. Parapharyngeal fat planes are preserved. Epiglottis is unremarkable. There appears to be some generalized edema and thickening in the region of the laryngeal vestibule. There is questionable low-density mass and nodularity involving the left vocal cord with some bowing medially. This area of vague low density is approximately 13 mm x 10 mm. No thyroid mass is identified. Submandibular and parotid glands appear to be symmetric bilaterally. There is a prominent right-sided jugulodigastric lymph node measuring 2.7 x 1.5 cm. No other enlarged lymph nodes are identified. Impression: There appears to be some edema and thickening in the region of the laryngeal vestibule with questionable nodular mass involving the left vocal cord. This represents a change when compared with outside CT from [facility] on 12/17/2018. There is a large right level IIA lymph node, also new when compared with outside CT. Dictated by: Dictated on workstation # [id number]
== END ==
LOC: RAD 08:11
PROVIDERS: ATTEND Otolaryngology Otolaryngology/Facial Plastic Surgery
DX: C32.9 Malignant neoplasm of larynx, unspecified (principal); R59.0 Localized enlarged lymph nodes
CPT/HCPCS: 36415; 70491; 82565; 84520

== ENCOUNTER 2020-01-02 14:11 | Emergency (ER) | payer MEDICARE, MEDICAID ==
[~2020-01-02] VITALS: Ht 167.7 cm; Wt 76.8 kg
[~2020-01-02 14:11] MED LIST changes: -HOLD METFORMIN - RECEIVED CONTRAST 20 ML VIAL IV SCH; -IOHEXOL 350 MG/ML 100 ML (OMNIPAQUE 350) VIAL IV ONE; -NS 100 ML (IVPB) BAG IV ONE
--- NOTE | 2020-01-02 14:22 | ED Cough/URI ---
General Source: patient, EMS History of Present Illness Date Seen by Provider: Jan 02, 2020 Time Seen by Provider: 14:19 Initial Comments 59-year-old male with trach presents with a lot of mucus in his trach. Patient is brought into these had hard time section his trach, had a little bit of blood after a lot of suctioning. Patient has a trach because he has a history of vocal cord cancer and possibly has spread into his respiratory tract. Patient is currently being treated for bronchitis. Patient has 1 day left antibiotic. P atient is normally on home oxygen. At this time he does not report any fevers chills. He does have a little bit of a chronic cough. He has not had any difficulty breathing after EMS suctioned him. Patient does use nebulizers and his last one was this morning Allergies and Home Medications Allergies Coded Allergies: azithromycin (Unverified Adverse Reaction, Mild, Hives, 01/02/20) from [facility] records levofloxacin (Unverified Adverse Reaction, Mild, Hives, 01/02/20) from [facility] records Patient Home Medication List Home Medication List Reviewed: Yes Review of Systems Review of Systems Constitutional: see HPI; No fever EENTM: no symptoms reported Respiratory: see HPI, cough Cardiovascular: no symptoms reported Gastrointestinal: no symptoms reported Genitourinary: no symptoms reported Musculoskeletal: no symptoms reported Skin: no symptoms reported Past Xujbunq-Miwyds-Gjokcb Hx Past Med/Social Hx: Reviewed Nursing Past Med/Soc Hx Physical Exam Vital Signs - First Documented 01/02/20 14:11 Temp 36.8 Pulse 86 Resp 20 B/P (MAP) 136/78 (97) Pulse Ox 100 O2 Delivery Room Air Capillary Refill : Height: '" Weight: lbs. oz. 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 tested, alert, normal mood/affect, oriented x 3 Progress/Results/Core Measures Suspected Sepsis SIRS Temperature: Pulse: Respiratory Rate: Laboratory Tests 01/02/20 14:33: White Blood Count 14.8H Blood Pressure / Mean: Laboratory Tests 01/02/20 14:33: Creatinine 0.82, Platelet Count 583H Results/Orders Lab Results Laboratory Tests Test 01/02/20 14:33 Range/Units White Blood Count 14.8 H 4.3-11.0 10^3/uL Red Blood Count 4.11 L 4.35-5.85 10^6/uL Hemoglobin 12.1 L 13.3-17.7 G/DL Hematocrit 35 L 40-54 % Mean Corpuscular Volume 86 80-99 FL Mean Corpuscular Hemoglobin 29 25-34 PG Mean Corpuscular Hemoglobin Concent 34 32-36 G/DL Red Cell Distribution Width 13.8 10.0-14.5 % Platelet Count 583 H 130-400 10^3/uL Mean Platelet Volume 8.5 7.4-10.4 FL Neutrophils (%) (Auto) 76 H 42-75 % Lymphocytes (%) (Auto) 13 12-44 % Monocytes (%) (Auto) 8 0-12 % Eosinophils (%) (Auto) 1 0-10 % Basophils (%) (Auto) 1 0-10 % Neutrophils # (Auto) 11.3 H 1.8-7.8 X 10^3 Lymphocytes # (Auto) 2.0 1.0-4.0 X 10^3 Monocytes # (Auto) 1.1 H 0.0-1.0 X 10^3 Eosinophils # (Auto) 0.2 0.0-0.3 10^3/uL Basophils # (Auto) 0.1 0.0-0.1 10^3/uL Neutrophils % (Manual) 65 % Lymphocytes % (Manual) 17 % Monocytes % (Manual) 7 % Eosinophils % (Manual) 1 % Basophils % (Manual) 0 % Band Neutrophils 10 % Blood Morphology Comment NORMAL Sodium Level 137 135-145 MMOL/L Potassium Level 3.8 3.6-5.0 MMOL/L Chloride Level 100 98-107 MMOL/L Carbon Dioxide Level 22 21-32 MMOL/L Anion Gap 15 H 5-14 MMOL/L Blood Urea Nitrogen 15 7-18 MG/DL Creatinine 0.82 0.60-1.30 MG/DL Estimat Glomerular Filtration Rate > 60 BUN/Creatinine Ratio 18 Glucose Level 95 70-105 MG/DL Calcium Level 9.1 8.5-10.1 MG/DL Micro Results Microbiology 01/02/20 Influenza Types A,B Antigen (KARTHIKEYAN) - Final, Complete My Orders Orders - ROSENBAUM,TONIE L DO Chest Pa/Lat (2 View) (01/02/20 14:23) Albuterol/Ipra Inhalation Soln (Duoneb I (01/02/20 14:30) Svn Small Volume Nebulizer (01/02/20 14:23) Basic Metabolic Panel (01/02/20 14:23) Cbc With Automated Diff (01/02/20 14:23) Influenza A And B Antigens (01/02/20 14:23) Manual Differential (01/02/20 14:33) Medications Given in ED Current Medications Medications Dose Ordered Sig/Malini Route Start Time Stop Time Status Last Admin Dose Admin Albuterol/ Ipratropium 3 ml ONCE ONCE INH 01/02/20 14:30 01/02/20 14:31 DC 01/02/20 14:27 3 ML Vital Signs/I&O 01/02/20 14:11 Temp 36.8 Pulse 86 Resp 20 B/P (MAP) 136/78 (97) Pulse Ox 100 O2 Delivery Room Air Capillary Refill : Progress Note : Time: 15:20 Progress Note Patient feeling significantly better following breathing treatment and suctioning. Patient with slightly elevated white count consistent with 13 day course of dexamethasone. Patient has a couple days left of his doxycycline. Patient is feeling a lot better and is ready to be discharged home. Departure Impression Primary Impression: COPD (chronic obstructive pulmonary disease) Qualified Codes: J44.9 - Chronic obstructive pulmonary disease, unspecified Additional Impression: Tracheostomy care Disposition: 01 HOME, SELF-CARE Condition: Stable Departure-Patient Inst. Patient Instructions: How to Care for a Tracheostomy TONIE ROSENBAUM DO Jan 02, 2020 14:22
[2020-01-02] MEDS ORDERED: RT-ALBUTEROL/IPRATROPIUM 3 ML (DUONEB) VIAL INH ONE (14:30)
[2020-01-02] MEDS ORDERED: OXYC-529 (14:33)
[2020-01-02] MEDS ORDERED: ALPR0.5T7 (14:33)
[2020-01-02] MEDS ORDERED: PANT40TA3 (14:33)
[2020-01-02] MEDS ORDERED: DOXY100C2 (14:33)
[2020-01-02 14:42] LABS: HEMATOCRIT 35 % (40-54); HEMOGLOBIN 12.1 G/DL (13.3-17.7); MEAN CORPUSCULAR HEMOGLOBIN 29 PG (25-34); MEAN CORPUSCULAR HGB CONC 34 G/DL (32-36); MEAN CORPUSCULAR VOLUME 86 FL (80-99); WHITE BLOOD COUNT 14.8 10^3/uL (4.3-11.0)
[2020-01-02 14:43] LABS: BASOPHILS # (AUTO) 0.1 10^3/uL (0.0-0.1); BASOPHILS % (AUTO) 1 % (0-10); EOSINOPHILS # (AUTO) 0.2 10^3/uL (0.0-0.3); EOSINOPHILS % (AUTO) 1 % (0-10); LYMPHOCYTES % (AUTO) 13 % (12-44); MEAN PLATELET VOLUME 8.5 FL (7.4-10.4); MONOCYTES # (AUTO) 1.1 X 10^3 (0.0-1.0); MONOCYTES % (AUTO) 8 % (0-12); NEUTROPHILS # (AUTO) 11.3 X 10^3 (1.8-7.8); NEUTROPHILS % (AUTO) 76 % (42-75); PLATELET COUNT 583 10^3/uL (130-400); RED CELL DISTRIBUTION WIDTH 13.8 % (10.0-14.5)
[2020-01-02 14:54] LABS: BUN/CREATININE RATIO 18; CALCIUM 9.1 MG/DL (8.5-10.1); CARBON DIOXIDE 22 MMOL/L (21-32); CHLORIDE 100 MMOL/L (98-107); CREATININE SERUM 0.82 MG/DL (0.60-1.30); GFR ESTIMATED > 60; GLUCOSE 95 MG/DL (70-105); POTASSIUM 3.8 MMOL/L (3.6-5.0); SODIUM 137 MMOL/L (135-145)
--- NOTE | 2020-01-02 15:04 | Diagnostic Imaging Report ---
EXAMINATION: Chest (PA and lateral). CLINICAL INDICATION: 59-year-old male, shortness of breath. COMPARISON: None. FINDINGS: There is a tracheostomy tube. Heart size and mediastinal contours are unremarkable. There is no identified pneumothorax. There is no pleural effusion. There is no identified focal airspace consolidation. There is incompletely imaged cervical spine hardware. There are mild disc degenerative changes of the thoracic spine. There is an age-indeterminate deformity of the left third rib. IMPRESSION: 1. No identified acute cardiopulmonary abnormality. 2. Age-indeterminate deformity of the left third rib. Dictated by: Dictated on workstation # [id number]
[2020-01-02 15:05] LABS: BAND NEUTROPHILS 10 %; BASOPHILS % (MANUAL) 0 %; EOSINOPHILS % (MANUAL) 1 %; LYMPHOCYTES % (MANUAL) 17 %; MONOCYTES % (MANUAL) 7 %; NEUTROPHILS % (MANUAL) 65 %; RBC MORPH NORMAL
[2020-01-02 15:22] VITALS: BP 127/79
== END 2020-01-02 15:22 | disposition home or self-care (01) ==
LOC: EDUNIT# 14:18 → ER FS 14:19
DX: J44.9 Chronic obstructive pulmonary disease, unspecified (principal); Z43.0 Encounter for attention to tracheostomy; Z88.1 Allergy status to other antibiotic agents
CPT/HCPCS: 36415; 71046; 80048; 85007; 85027; 87804; 94640

== ENCOUNTER 2020-01-03 22:45 | Emergency (ER) | payer MEDICARE, MEDICAID ==
[~2020-01-03] VITALS: Ht 167.7 cm; Wt 76.8 kg
[~2020-01-03 22:45] MED LIST changes: +ALPR0.5T7; +DOXY100C2; +OXYC-529; +PANT40TA3
--- NOTE | 2020-01-03 23:16 | ED Dyspnea ---
General Chief Complaint: Respiratory Problems Stated Complaint: THROAT PROBLEMS Nursing Triage Note: Patient states that he had a trach placed 2 weeks ago. He states he had it placed for vocal cord cancer. Patient states he is having trouble keeping up with suctioning of the secretions. He states that he wakes up choking and he is tired. Source of Information: Patient Exam Limitations: Language Barrier History of Present Illness Date Seen by Provider: Jan 03, 2020 Time Seen by Provider: 23:12 Initial Comments Patient is 2 weeks postop from a tracheostomy placement now complains of increasing mucus and sputum production which is causing him to feel quite short of breath he denies a fever this is been going on for greater than a week he has been taking antibiotics but no steroids he has underlying COPD most of the mucus is bringing up is clear there is some scant green with it finishes antibiotics today Allergies and Home Medications Allergies Coded Allergies: azithromycin (Unverified Adverse Reaction, Mild, Hives, 01/02/20) from [facility] records levofloxacin (Unverified Adverse Reaction, Mild, Hives, 01/02/20) from [facility] records Patient Home Medication List Home Medication List Reviewed: Yes Review of Systems Review of Systems Constitutional: no symptoms reported EENTM: no symptoms reported Respiratory: see HPI, cough Cardiovascular: no symptoms reported Gastrointestinal: no symptoms reported Genitourinary: no symptoms reported Musculoskeletal: no symptoms reported Skin: no symptoms reported Past Ewjipue-Vbsxmi-Melmjr Hx Patient Social History Alcohol Beverage of Choice: Beer, Whiskey Drug of Choice: THC Type Used: Cigarettes 2nd Hand Smoke Exposure: Yes Recent Foreign Travel: No Contact w/Someone Who Travel: No Recent Infectious Disease Expo: No Recent Hopitalizations: No Immunizations Up To Date Tetanus Booster (TDap): Less than 5yrs Date of Pneumonia Vaccine: Nov 20, 2014 Date of Influenza Vaccine: Dec 04, 2016 Seasonal Allergies Seasonal Allergies: No Past Medical History Surgeries: Yes (R HEMICOLECTOMY, LAP TRINI, MANUEL IN LEG, NECK FUSION) Adenoidectomy, Appendectomy, Bowel Surgery, Tonsillectomy, Tracheostomy Respiratory: Yes (TOBACCOISM) COPD Cardiac: No Neurological: No Reproductive Disorders: No Genitourinary: No Gastrointestinal: Yes (HEP C, ADENOMATOUS POLYP ASCENDING COLON) Gastroesophageal Reflux, Hepatitis, Polyps Musculoskeletal: Yes (LUMBAR STENOSIS, CARPAL TUNNEL, ) Fibromyalgia Endocrine: No HEENT: No Cancer: Yes (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 5.0oz. 77.722050pd; 27.00 BMI Method:Stated General Appearance: Chronically ill, Mild Distress HEENT: PERRL/EOMI, TMs Normal; No Pharynx Normal (tracheostomy tube present) Neck: Full Range of Motion; No Normal Inspection (trach tube present); Non Tender Respiratory: Crackles, Expiration, Rhonci, Wheezing Cardiovascular: Regular Rate, Rhythm, No Edema (trace edema in the feet) Gastrointestinal: Normal Bowel Sounds (G-tube present) Extremity: Normal Capillary Refill Neurologic/Psychiatric: Alert, Oriented x3, Normal Mood/Affect Skin: Normal Color Progress/Results/Core Measures Results/Orders My Orders Orders - JOSHUA WINTERS DO Chest 1 View Ap/Pa Only (01/03/20 23:18) Soft Tissue Neck (01/03/20 23:19) Cbc And Manual Diff (01/03/20 23:26) Comprehensive Metabolic Panel (01/03/20 23:26) Vital Signs/I&O 01/03/20 22:50 Temp 36.7 Pulse 103 Resp 22 B/P (MAP) 140/85 (103) Pulse Ox 96 O2 Delivery Room Air Blood Pressure Mean: 103 Progress Progress Note : Progress Note Patient has been advised no more steroids my initial assessment is that she probably a COPD exacerbation and certainly could be a narrowing or compromise of his laryngeal apparatus surrounding his tracheostomy. The plan would be a chest x-ray soft tissue neck x-rays breathing treatments and suctioning while I discussed the case with his head and neck surgeon to make a determination about further needs care the patient. Departure Impression Primary Impression: Tracheostomy complication Disposition: [facility] Condition: Improved Transfer Transfer Reason: Exceeds level of care Time Spoke to Accepting Phy: 23:38 Transfer Progress Notes Patient's had 2 visits here for problems with his recent tracheostomy tube placement more likely appears to be a COPD problem with his doctors have recommended no more steroids because of pre-plan surgeries he's in no severe respiratory distress comfortable and ambulatory but in discussion with the ear nose and throat surgical service at the request he be transferred there for vertigo evaluation in the emergency department because he will probably need endoscopy. Transfer Facility: Emergency Department Method of Transfer: EMS Departure-Patient Inst. Referrals: HALLIE CORTEZ MD (PCP) Primary Care Physician NO,LOCAL PHYSICIAN (Family) Primary Care Physician JOSHUA WINTERS DO Jan 03, 2020 23:16
[2020-01-04 00:07] LABS: BASOPHILS # (AUTO) 0.1 10^3/uL (0.0-0.1); BASOPHILS % (AUTO) 1 % (0-10); EOSINOPHILS # (AUTO) 0.2 10^3/uL (0.0-0.3); EOSINOPHILS % (AUTO) 2 % (0-10); HEMATOCRIT 36 % (40-54); HEMOGLOBIN 12.2 G/DL (13.3-17.7); LYMPHOCYTES # (AUTO) 2.5 X 10^3 (1.0-4.0); LYMPHOCYTES % (AUTO) 22 % (12-44); MEAN CORPUSCULAR HEMOGLOBIN 29 PG (25-34); MEAN CORPUSCULAR HGB CONC 34 G/DL (32-36); MEAN CORPUSCULAR VOLUME 86 FL (80-99); MEAN PLATELET VOLUME 8.5 FL (7.4-10.4); MONOCYTES % (AUTO) 9 % (0-12); NEUTROPHILS # (AUTO) 7.5 X 10^3 (1.8-7.8); NEUTROPHILS % (AUTO) 66 % (42-75); PLATELET COUNT 583 10^3/uL (130-400); RED CELL DISTRIBUTION WIDTH 13.6 % (10.0-14.5); WHITE BLOOD COUNT 11.3 10^3/uL (4.3-11.0)
[2020-01-04 00:19] LABS: ALANINE AMINOTRANSFERASE 37 U/L (0-55); ALBUMIN 3.8 GM/DL (3.2-4.5); ALKALINE PHOSPHATASE 79 U/L (40-136); BILIRUBIN,TOTAL 0.3 MG/DL (0.1-1.0); BUN/CREATININE RATIO 21; CALCIUM 9.1 MG/DL (8.5-10.1); CARBON DIOXIDE 24 MMOL/L (21-32); CHLORIDE 99 MMOL/L (98-107); CREATININE SERUM 0.81 MG/DL (0.60-1.30); GFR ESTIMATED > 60; GLUCOSE 123 MG/DL (70-105); POTASSIUM 4.2 MMOL/L (3.6-5.0); SODIUM 134 MMOL/L (135-145); TOTAL PROTEIN 6.9 GM/DL (6.4-8.2)
[2020-01-04 00:20] VITALS: BP 140/85
[2020-01-04 00:31] LABS: EOSINOPHILS % (MANUAL) 6 %; LYMPHOCYTES % (MANUAL) 19 %; MICROCYTOSIS MODERATE; MONOCYTES % (MANUAL) 4 %; NEUTROPHILS % (MANUAL) 71 %
--- NOTE | 2020-01-04 07:04 | Diagnostic Imaging Report ---
INDICATION: Cough. TECHNIQUE: Single view chest 11:24 PM. CORRELATION STUDY: 01/02/2020 FINDINGS: Tracheostomy tube tip interposed between the clavicles and superimposed over the trachea. Heart size, mediastinum and vasculature within normal limits. The lungs are clear with no consolidating infiltrate. There is no significant effusion or pneumothorax. Cervical spinal fixation hardware is present. IMPRESSION: 1. Negative for acute abnormality of the chest. Dictated by: Dictated on workstation # [id number]
--- NOTE | 2020-01-04 07:16 | Diagnostic Imaging Report ---
INDICATION: History of recent tracheostomy placement for laryngeal cancer. Comparison made of the chest radiograph from the same day. Correlation is made to radiograph from 01/02/2020. FINDINGS: Positioning of the patient's tracheostomy cannula appears unchanged. This projects over the tracheal air shadow. The visualized portion of the lung apices appear clear. Previous operative changes of an anterior cervical discectomy and fusion of C3-C6 noted. Multiple surgical clips present within the neck. IMPRESSION: 1. No findings of an interval change in position of the patient's tracheostomy cannula. The lung apices appear clear. No convincing evidence of abnormal prevertebral soft tissue thickening. There are prior operative changes of the cervical ACDF. Dictated by: Dictated on workstation # [id number]
== END 2020-01-04 00:20 | disposition short-term general hospital (02) ==
LOC: EDUNIT# 22:45 → ER FS 22:46
DX: J95.09 Other tracheostomy complication (principal); Z88.1 Allergy status to other antibiotic agents; Z77.22 Contact with and (suspected) exposure to environmental tobacco smoke (acute) (chronic); Z85.818 Personal history of malignant neoplasm of other sites of lip, oral cavity, and pharynx; Z85.820 Personal history of malignant melanoma of skin; Z82.49 Family history of ischemic heart disease and other diseases of the circulatory system
CPT/HCPCS: 36415; 70360; 71045; 80053; 85007; 85027

== ENCOUNTER 2020-01-12 16:59 | Emergency (ER) | payer MEDICARE, MEDICAID ==
[~2020-01-12] VITALS: Ht 168 cm; Wt 73.0 kg
[2020-01-12 17:04] VITALS: BP 130/78
[2020-01-12] MEDS ORDERED: RT-SODIUM CHL INHALATION 3 ML VIAL ONE (17:08)
--- NOTE | 2020-01-12 17:31 | ED Respiratory ---
General Chief Complaint: Respiratory Problems Stated Complaint: SOA Nursing Triage Note: Patient reports increased SOA and having to frequently suction is tracheostomy History of Present Illness Date Seen by Provider: Jan 12, 2020 Time Seen by Provider: 17:26 Initial Comments 59-year-old male has laryngeal cancer he's had a recent trach he is supposed to return to in 3 days and have a laryngectomy He apparently has been calling 911 frequently today he wanted to be transpor david directly to [facility] apparently the paramedics protocol does not allow that he's telling me that both the anesthesia doctor and the ENT doctor told him if he had any trouble breathing he should return immediately to O2 sats are showing in the 90s several times in route he does not appear to have any acute respiratory difficulty apparently is having to suction himself very frequently he's had mild leg edema the last 2 weeks and that was known to his doctor's at he has recently had some upper back pain Allergies and Home Medications Allergies Coded Allergies: azithromycin (Unverified Adverse Reaction, Mild, Hives, 01/02/20) from [facility] records levofloxacin (Unverified Adverse Reaction, Mild, Hives, 01/02/20) from [facility] records Patient Home Medication List Home Medication List Reviewed: Yes Review of Systems Review of Systems Constitutional: No fever EENTM: No throat pain Respiratory: short of breath Cardiovascular: No palpitations, No syncope Gastrointestinal: No abdominal pain, No diarrhea Genitourinary: no symptoms reported Musculoskeletal: other (mild leg edema bilateral) Past Yknjjnm-Hhnyvj-Tefvpj Hx Patient Social History Alcohol Use: Rarely Uses Number of Drinks Today: GG Alcohol Beverage of Choice: Beer, Whiskey Recreational Drug Use: No Drug of Choice: THC Smoking Status: Current Someday Smoker Type Used: Cigarettes 2nd Hand Smoke Exposure: Yes Recent Foreign Travel: No Contact w/Someone Who Travel: No Recent Infectious Disease Expo: No Recent Hopitalizations: No Immunizations Up To Date Tetanus Booster (TDap): Less than 5yrs Date of Pneumonia Vaccine: Nov 20, 2014 Date of Influenza Vaccine: Dec 04, 2016 Seasonal Allergies Seasonal Allergies: No Past Medical History Surgeries: Yes (R HEMICOLECTOMY, LAP TRINI, MANUEL IN LEG, NECK FUSION) Adenoidectomy, Appendectomy, Bowel Surgery, Tonsillectomy, Tracheostomy Respiratory: Yes (TOBACCOISM) COPD Cardiac: No Neurological: No Reproductive Disorders: No Genitourinary: No Gastrointestinal: Yes (HEP C, ADENOMATOUS POLYP ASCENDING COLON) Gastroesophageal Reflux, Hepatitis, Polyps Musculoskeletal: Yes (LUMBAR STENOSIS, CARPAL TUNNEL, ) Fibromyalgia Endocrine: No HEENT: No Cancer: Yes (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, MALIGNANT MELANOMA) Melanoma, Oral Did You Recieve Any Treatments: Yes What Type of Treatment Did You: Radiation Psychosocial: Yes Anxiety Integumentary: No Blood Disorders: No Adverse Reaction/Blood Tranf: No Family Medical History Family history: Cardiovascular disease 19 FATHER Family history: Hypertension 19 MOTHER Physical Exam Vital Signs - First Documented 01/12/20 17:04 Temp 37.3 Pulse 94 Resp 18 B/P (MAP) 130/78 (95) Pulse Ox 98 O2 Delivery Room Air Capillary Refill : Less Than 3 Seconds Height: 5'6.00" Weight: 171lbs. 5.0oz. 77.104431xt; 25.00 BMI Method:Stated General Appearance: no apparent distress Eyes: Bilateral Eye PERRL, Bilateral Eye EOMI HEENT: PERRL/EOMI Neck: other (trach positioned appropriately) Respiratory: chest non-tender, normal breath sounds Cardiovascular: regular rate, rhythm Gastrointestinal: non tender, soft Extremities: swelling (mild ) Progress/Results/Core Measures Suspected Sepsis Recent Fever Within 48 Hours: No Infection Criteria Present: None New/Unexplained Altered Menta: No Sepsis Screen: No Definite Risk SIRS Temperature: Pulse: 94 Respiratory Rate: 18 Laboratory Tests 01/12/20 17:05: White Blood Count 12.1H Blood Pressure 130 /78 Mean: 95 Laboratory Tests 01/12/20 17:05: Platelet Count 538H Results/Orders Lab Results Laboratory Tests Test 01/12/20 17:05 Range/Units White Blood Count 12.1 H 4.3-11.0 10^3/uL Red Blood Count 4.36 4.35-5.85 10^6/uL Hemoglobin 12.5 L 13.3-17.7 G/DL Hematocrit 37 L 40-54 % Mean Corpuscular Volume 85 80-99 FL Mean Corpuscular Hemoglobin 29 25-34 PG Mean Corpuscular Hemoglobin Concent 34 32-36 G/DL Red Cell Distribution Width 13.3 10.0-14.5 % Platelet Count 538 H 130-400 10^3/uL Mean Platelet Volume 9.0 7.4-10.4 FL Neutrophils (%) (Auto) 69 42-75 % Lymphocytes (%) (Auto) 20 12-44 % Monocytes (%) (Auto) 9 0-12 % Eosinophils (%) (Auto) 1 0-10 % Basophils (%) (Auto) 1 0-10 % Neutrophils # (Auto) 8.3 H 1.8-7.8 X 10^3 Lymphocytes # (Auto) 2.4 1.0-4.0 X 10^3 Monocytes # (Auto) 1.1 H 0.0-1.0 X 10^3 Eosinophils # (Auto) 0.1 0.0-0.3 10^3/uL Basophils # (Auto) 0.1 0.0-0.1 10^3/uL My Orders Orders - TIMMY GONZALEZ MD Sodium Chl Inhalation (Rt-Sodium Chl Inh (01/12/20 17:08) Cbc With Automated Diff (01/12/20 17:31) Basic Metabolic Panel (01/12/20 17:31) Fountain Helper (01/12/20 17:31) Arterial Blood Gas (01/12/20 17:31) Medications Given in ED Current Medications Medications Dose Ordered Sig/Malini Route Start Time Stop Time Status Last Admin Dose Admin Sodium Chloride 3 ml STK-MED ONCE .ROUTE 01/12/20 17:08 01/12/20 17:14 DC 01/12/20 17:43 3 ML Vital Signs/I&O 01/12/20 17:04 Temp 37.3 Pulse 94 Resp 18 B/P (MAP) 130/78 (95) Pulse Ox 98 O2 Delivery Room Air Capillary Refill : Less Than 3 Seconds Blood Pressure Mean: 95 Progress Note : Progress Note pt refused any imaging then he refused blood draw got up and walked out of the ER We encouraged him to wait let us check him out Make sure he was stable for travel he understands and refused Departure Impression Primary Impression: Dyspnea Qualified Codes: R06.00 - Dyspnea, unspecified Disposition: 07 AGAINST MEDICAL ADVICE Departure-Patient Inst. Referrals: HALLIE CORTEZ MD (PCP/Family) Primary Care Physician TIMMY GONZALEZ MD Jan 12, 2020 17:31
--- NOTE | 2020-01-12 17:50 | NUR ---
Patient refusing xrays and abg's.
[2020-01-12 17:52] LABS: EOSINOPHILS % (AUTO) 1 % (0-10); HEMATOCRIT 37 % (40-54); HEMOGLOBIN 12.5 G/DL (13.3-17.7); LYMPHOCYTES % (AUTO) 20 % (12-44); MEAN CORPUSCULAR HEMOGLOBIN 29 PG (25-34); MEAN CORPUSCULAR HGB CONC 34 G/DL (32-36); MEAN CORPUSCULAR VOLUME 85 FL (80-99); MONOCYTES % (AUTO) 9 % (0-12); NEUTROPHILS % (AUTO) 69 % (42-75); PLATELET COUNT 538 10^3/uL (130-400); RED CELL DISTRIBUTION WIDTH 13.3 % (10.0-14.5); WHITE BLOOD COUNT 12.1 10^3/uL (4.3-11.0)
[2020-01-12 17:53] LABS: BASOPHILS # (AUTO) 0.1 10^3/uL (0.0-0.1); BASOPHILS % (AUTO) 1 % (0-10); EOSINOPHILS # (AUTO) 0.1 10^3/uL (0.0-0.3); LYMPHOCYTES # (AUTO) 2.4 X 10^3 (1.0-4.0); MONOCYTES # (AUTO) 1.1 X 10^3 (0.0-1.0); NEUTROPHILS # (AUTO) 8.3 X 10^3 (1.8-7.8)
[2020-01-12 18:03] LABS: BUN/CREATININE RATIO 18; CARBON DIOXIDE 23 MMOL/L (21-32); CHLORIDE 99 MMOL/L (98-107); CREATININE SERUM 0.73 MG/DL (0.60-1.30); GFR ESTIMATED > 60; GLUCOSE 122 MG/DL (70-105); POTASSIUM 3.6 MMOL/L (3.6-5.0); SODIUM 134 MMOL/L (135-145)
[2020-01-12 18:04] LABS: CALCIUM 8.9 MG/DL (8.5-10.1)
== END 2020-01-12 17:53 | disposition left against medical advice (07) ==
LOC: EDUNIT# 16:59 → ER FS 16:59
DX: R06.00 Dyspnea, unspecified (principal); F17.210 Nicotine dependence, cigarettes, uncomplicated; Z88.1 Allergy status to other antibiotic agents; Z85.21 Personal history of malignant neoplasm of larynx; Z87.09 Personal history of other diseases of the respiratory system; Z82.49 Family history of ischemic heart disease and other diseases of the circulatory system
CPT/HCPCS: 36415; 80048; 85025; 99283

== ENCOUNTER → 2020-07-08 | Outpatient (CLI) | payer MEDICARE, MEDICAID ==
[~2020-07-08] MED LIST changes: +ACHYD1T PO; -HYDR-3820 PO; -OXYC-529; +OXYC5TAB96
[2020-07-09 12:51] LABS: BUN/CREATININE RATIO 11; CALCIUM 8.6 MG/DL (8.5-10.1); CARBON DIOXIDE 24 MMOL/L (21-32); CHLORIDE 96 MMOL/L (98-107); CREATININE SERUM 0.87 MG/DL (0.60-1.30); GFR ESTIMATED > 60; GLUCOSE 100 MG/DL (70-105); POTASSIUM 4.1 MMOL/L (3.6-5.0); SODIUM 134 MMOL/L (135-145)
[2020-07-09 12:54] LABS: ALANINE AMINOTRANSFERASE 22 U/L (0-55); ALBUMIN 3.5 GM/DL (3.2-4.5); ALKALINE PHOSPHATASE 91 U/L (40-136); BILIRUBIN,TOTAL 0.5 MG/DL (0.1-1.0); TOTAL PROTEIN 7.3 GM/DL (6.4-8.2); WHITE BLOOD COUNT 18.6 10^3/uL (4.3-11.0)
[2020-07-09 12:55] LABS: HEMATOCRIT 38 % (40-54); HEMOGLOBIN 12.6 G/DL (13.3-17.7); LYMPHOCYTES % (AUTO) 11 % (12-44); MEAN CORPUSCULAR HEMOGLOBIN 28 PG (25-34); MEAN CORPUSCULAR HGB CONC 33 G/DL (32-36); MEAN CORPUSCULAR VOLUME 84 FL (80-99); MEAN PLATELET VOLUME 8.6 FL (7.4-10.4); MONOCYTES % (AUTO) 10 % (0-12); PLATELET COUNT 520 10^3/uL (130-400)
[2020-07-09 12:56] LABS: BASOPHILS % (AUTO) 1 % (0-10); NEUTROPHILS % (AUTO) 75 % (42-75)
[2020-07-09 12:57] LABS: BASOPHILS # (AUTO) 0.1 10^3/uL (0.0-0.1); EOSINOPHILS # (AUTO) 0.1 10^3/uL (0.0-0.3); EOSINOPHILS % (AUTO) 2 % (0-10); MONOCYTES # (AUTO) 1.8 X 10^3 (0.0-1.0); NEUTROPHILS # (AUTO) 14.4 X 10^3 (1.8-7.8)
[2020-07-09 12:58] LABS: BAND NEUTROPHILS 3 %; BASOPHILS % (MANUAL) 1 %; EOSINOPHILS % (MANUAL) 2 %; LYMPHOCYTES # (AUTO) 2.1 X 10^3 (1.0-4.0); LYMPHOCYTES % (MANUAL) 10 %; METAMYELOCYTES % 1 %; MONOCYTES % (MANUAL) 9 %; NEUTROPHILS % (MANUAL) 74 %
--- NOTE | 2020-07-10 08:11 | Diagnostic Imaging Report ---
EXAMINATION: CT abdomen without contrast on 07/08/2020. INDICATION: Right upper quadrant abdominal pain with palpable knot. TECHNIQUE: Axial imaging through the abdomen was performed without contrast. All CT scans use one or more of the following dose optimizing techniques: automated exposure control, MA and/or KvP adjustment based on a patient size and exam type or iterative reconstruction. COMPARISON: Correlation is made with the prior CT from 02/05/2019. FINDINGS: The lung bases are clear. The previously noted right-sided pigtail drain within the right infrahepatic space has been removed. There has been some slight reaccumulation of fluid at the former drain location. The fluid measures approximately 6.9 x 4.7 cm. There is some calcification along the inferior aspect of the collection. There appears to be some trace fluid versus soft tissue thickening adjacent to the right lobe of the liver in a subcapsular location. No gas within the collection is identified. The liver itself is unremarkable. The gallbladder is surgically absent. There is no biliary ductal dilatation. The pancreas and spleen are unremarkable. No adrenal mass is detected. The kidneys are unremarkable. The aorta is slightly calcified but nonaneurysmal. There are some fluid-filled bowel loops but no definite obstructive pattern is seen. No free fluid is detected. IMPRESSION: There has been reaccumulation of a fluid collection in the subhepatic space, similar in location as seen in January 2019. An abscess cannot be entirely excluded. No gas within the collection is identified. This would be amenable to attempted percutaneous aspiration and potentially drain placement. The results were discussed with Dr. Dumont prior to this dictation. Dictated by: Dictated on workstation # [id number]
== END ==
LOC: LAB FS 10:28
PROVIDERS: ATTEND Family Medicine
DX: R10.11 Right upper quadrant pain (principal); Z90.49 Acquired absence of other specified parts of digestive tract
CPT/HCPCS: 36415; 74170; 80053; 85007; 85027

== ENCOUNTER → 2020-07-27 | Outpatient (CLI) | payer MEDICARE, MEDICAID ==
[2020-07-27 17:34] LABS: BASOPHILS % (AUTO) 1 % (0-10); EOSINOPHILS # (AUTO) 0.2 10^3/uL (0.0-0.3); EOSINOPHILS % (AUTO) 2 % (0-10); HEMATOCRIT 40 % (40-54); HEMOGLOBIN 13.4 G/DL (13.3-17.7); LYMPHOCYTES # (AUTO) 2.1 X 10^3 (1.0-4.0); LYMPHOCYTES % (AUTO) 25 % (12-44); MEAN CORPUSCULAR HEMOGLOBIN 29 PG (25-34); MEAN CORPUSCULAR HGB CONC 33 G/DL (32-36); MEAN CORPUSCULAR VOLUME 86 FL (80-99); MONOCYTES # (AUTO) 0.6 X 10^3 (0.0-1.0); MONOCYTES % (AUTO) 7 % (0-12); NEUTROPHILS # (AUTO) 5.3 X 10^3 (1.8-7.8); NEUTROPHILS % (AUTO) 65 % (42-75); PLATELET COUNT 344 10^3/uL (130-400); WHITE BLOOD COUNT 8.2 10^3/uL (4.3-11.0)
[2020-07-27 17:35] LABS: BASOPHILS # (AUTO) 0.1 10^3/uL (0.0-0.1)
[2020-07-27 17:40] LABS: ERYTHROCYTE SEDIMENTATION RATE 13 MM/HR (0-30)
[2020-07-27 17:41] LABS: ALANINE AMINOTRANSFERASE 13 U/L (0-55); ALBUMIN 3.4 GM/DL (3.2-4.5); ALKALINE PHOSPHATASE 73 U/L (40-136); BILIRUBIN,TOTAL 0.2 MG/DL (0.1-1.0); BUN/CREATININE RATIO 13; CALCIUM 7.4 MG/DL (8.5-10.1); CARBON DIOXIDE 22 MMOL/L (21-32); CHLORIDE 109 MMOL/L (98-107); CREATININE SERUM 1.08 MG/DL (0.60-1.30); GFR ESTIMATED > 60; GLUCOSE 77 MG/DL (70-105); POTASSIUM 3.5 MMOL/L (3.6-5.0); SODIUM 144 MMOL/L (135-145); TOTAL PROTEIN 5.7 GM/DL (6.4-8.2)
== END ==
LOC: LAB FS 17:02
DX: Z00.00 Encounter for general adult medical examination without abnormal findings (principal); Z51.81 Encounter for therapeutic drug level monitoring
CPT/HCPCS: 36415; 80053; 85025; 85652

== ENCOUNTER → 2020-08-04 | Outpatient (CLI) | payer MEDICARE, MEDICAID ==
[~2020-08-04] MED LIST changes: -PANT40TA3; +PANT40TA52
[2020-08-04 14:09] LABS: CREATININE SERUM 1.04 MG/DL (0.60-1.30)
[2020-08-04 14:35] LABS: BASOPHILS % (AUTO) 1 % (0-10); EOSINOPHILS % (AUTO) 2 % (0-10); HEMATOCRIT 41 % (40-54); HEMOGLOBIN 13.3 G/DL (13.3-17.7); LYMPHOCYTES % (AUTO) 22 % (12-44); MEAN CORPUSCULAR HEMOGLOBIN 29 PG (25-34); MEAN CORPUSCULAR HGB CONC 33 G/DL (32-36); MEAN CORPUSCULAR VOLUME 88 FL (80-99); MONOCYTES % (AUTO) 8 % (0-12); NEUTROPHILS % (AUTO) 68 % (42-75); PLATELET COUNT 352 10^3/uL (130-400); WHITE BLOOD COUNT 9.6 10^3/uL (4.3-11.0)
[2020-08-04 14:36] LABS: BASOPHILS # (AUTO) 0.1 10^3/uL (0.0-0.1); EOSINOPHILS # (AUTO) 0.2 10^3/uL (0.0-0.3); ERYTHROCYTE SEDIMENTATION RATE 15 MM/HR (0-30); LYMPHOCYTES # (AUTO) 2.1 X 10^3 (1.0-4.0); MONOCYTES # (AUTO) 0.7 X 10^3 (0.0-1.0); NEUTROPHILS # (AUTO) 6.5 X 10^3 (1.8-7.8)
== END ==
LOC: LAB FS 13:24
PROVIDERS: ATTEND Internal Medicine Infectious Disease
DX: L02.211 Cutaneous abscess of abdominal wall (principal); B96.20 Unspecified Escherichia coli [E. coli] as the cause of diseases classified elsewhere
CPT/HCPCS: 36415; 82565; 84520; 85025; 85652

== ENCOUNTER → 2020-08-10 | Outpatient (CLI) | payer MEDICAID, MEDICARE ==
[2020-08-10 18:22] LABS: BUN/CREATININE RATIO 12; CALCIUM 8.3 MG/DL (8.5-10.1); CARBON DIOXIDE 23 MMOL/L (21-32); CHLORIDE 103 MMOL/L (98-107); CREATININE SERUM 1.01 MG/DL (0.60-1.30); GFR ESTIMATED > 60; GLUCOSE 73 MG/DL (70-105); POTASSIUM 3.8 MMOL/L (3.6-5.0); SODIUM 139 MMOL/L (135-145)
[2020-08-10 18:24] LABS: BASOPHILS # (AUTO) 0.1 10^3/uL (0.0-0.1); BASOPHILS % (AUTO) 1 % (0-10); EOSINOPHILS # (AUTO) 0.1 10^3/uL (0.0-0.3); EOSINOPHILS % (AUTO) 1 % (0-10); HEMATOCRIT 39 % (40-54); HEMOGLOBIN 12.9 G/DL (13.3-17.7); LYMPHOCYTES # (AUTO) 2.2 X 10^3 (1.0-4.0); LYMPHOCYTES % (AUTO) 25 % (12-44); MEAN CORPUSCULAR HEMOGLOBIN 28 PG (25-34); MEAN CORPUSCULAR HGB CONC 33 G/DL (32-36); MEAN CORPUSCULAR VOLUME 86 FL (80-99); MEAN PLATELET VOLUME 10.4 FL (7.4-10.4); MONOCYTES # (AUTO) 0.7 X 10^3 (0.0-1.0); MONOCYTES % (AUTO) 8 % (0-12); NEUTROPHILS # (AUTO) 5.7 X 10^3 (1.8-7.8); NEUTROPHILS % (AUTO) 65 % (42-75); PLATELET COUNT 303 10^3/uL (130-400); WHITE BLOOD COUNT 8.8 10^3/uL (4.3-11.0)
[2020-08-10 19:06] LABS: ERYTHROCYTE SEDIMENTATION RATE 9 MM/HR (0-30)
== END ==
LOC: LAB FS 16:20
PROVIDERS: ATTEND Internal Medicine Infectious Disease
DX: L02.211 Cutaneous abscess of abdominal wall (principal)
CPT/HCPCS: 36415; 80048; 85025; 85652

== ENCOUNTER → 2021-10-05 | Outpatient (CLI) | payer MEDICARE, MEDICAID ==
[~2021-10-05] MED LIST changes: -DOXY100C2; +DOXY100C5; +OXC5T; -OXYC5TAB96
--- NOTE | 2021-10-05 13:07 | Diagnostic Imaging Report ---
PROCEDURE: CT abdomen without contrast. TECHNIQUE: Multiple contiguous axial images were obtained through the abdomen without the use of intravenous contrast. Auto Exposure Controls were utilized during the CT exam to meet ALARA standards for radiation dose reduction. INDICATION: Pain. COMPARISON: Exam is compared with abdominopelvic CT 07/08/2020. FINDINGS: There has been resolution of previous subhepatic fluid collection along the right flank. No residual or recurrent fluid collection identified. There is no hydroureteronephrosis. No opaque kidney stone. There is a small hiatal hernia, chronic. The unopacified liver is nonacute and nonfocal. The gallbladder is surgically absent. No pathological bile duct dilatation. Spleen is normal in size. The adrenals are negative. The atherosclerotic aorta is nonaneurysmal. There is fluid within the abdominal small and large bowel, which may reflect a diarrheal or hypermotile state. No bowel wall thickening. The lung bases themselves are clear. IMPRESSION: 1. Resolution of previous fluid collection. Small hiatal hernia. Elevated intestinal fluid load; correlate for diarrhea or nonspecific enterocolitis. No bowel wall thickening, however. 2. No obstructive features, ascites, or focal inflammatory changes. Dictated by: Dictated on workstation # [id number]
== END ==
LOC: RAD FS 11:49
PROVIDERS: ATTEND Family Medicine
DX: K44.9 Diaphragmatic hernia without obstruction or gangrene (principal)
CPT/HCPCS: 74150

== ENCOUNTER 2023-02-26 05:14 | Emergency (ER) | payer MEDICARE, MEDICAID ==
[~2023-02-26] VITALS: Ht 168 cm; Wt 79.4 kg
[2023-02-26] MEDS ORDERED: LEVO112T55 (05:30)
[2023-02-26] MEDS ORDERED: OXYC10TA7 (05:30)
[2023-02-26] MEDS ORDERED: CYCL10TA25 (05:30)
--- NOTE | 2023-02-26 05:53 | ED Neck-Back Pain/Injury ---
General Chief Complaint: Head/Cervical Problems Stated Complaint: OSUNA,NECK PX Nursing Triage Note: c/o headache, neck pain x3-4 days bilateral arm tingling after golfing. Source of Information: Patient Exam Limitations: Physical Impairments (KIRBY RUSH MD) History of Present Illness Date Seen by Provider: Feb 26, 2023 Time Seen by Provider: 05:35 Initial Comments Patient is a 62-year-old male who presents to the emergency department with a chief complaint of cervical spine pain, headache. Patient states 5 or 6 days ago he was straining going to the bathroom and had a sudden onset of neck pain which radiated up the back of his head and to his forehead. He states it felt like the top of his head was going to "blow out". He has a history of chronic neck and back pain. He has had cervical spine fusions. He has a history of laryngeal cancer status post laryngectomy. He is on chronic oxycodone 10 mg. Patient states for the last 5 days he has been taking 4/5 oxycodone 10mg tablets every 5 or so hours without relief. He denies new numbness or weakness to his arms. States when it initially happened it felt like "electric shocks" down both arms. Last dose of oxycodone was 2 tablets at 10pm. He states his PCP is trying to get him "approved" for a CT scan and that he didnt want to prescribe him steroids until the CT was done. Patient states he came in this morning because he cant sleep due to the pain. Location: C-Spine Timing/Duration: 4-5 Days Severity: Severe Pain/Injury Location: Neck Radiation: Other (head) Associated Symptoms: muscle spasms; No tingling in legs/feet, No sensory/motor loss, No loss of bladder control, No loss of bowel control (KIRBY RUSH MD) Allergies and Home Medications Allergies Coded Allergies: azithromycin (Unverified Adverse Reaction, Mild, Hives, 01/02/20) from [facility] records levofloxacin (Unverified Adverse Reaction, Mild, Hives, 01/02/20) from [facility] records Patient Home Medication List Home Medication List Reviewed: Yes (KIRBY RUSH MD) Alprazolam (Alprazolam) 0.5 Mg Tablet, (Reported) Entered as Reported by: YEYO PANTOJA on 01/02/201432 Cyclobenzaprine HCl (Cyclobenzaprine HCl) 10 Mg Tablet, (Reported) Entered as Reported by: VALERI REYNOLDS on 02/26/23529 Last Action: New Order Levothyroxine Sodium (Levothyroxine Sodium) 112 Mcg Tablet, (Reported) Entered as Reported by: VALERI REYNOLDS on 02/26/23529 Last Action: New Order Oxycodone HCl (Oxycodone HCl) 10 Mg Tablet, (Reported) Entered as Reported by: VALERI REYNOLDS on 02/26/23529 Last Action: New Order Discontinued Medications Doxycycline Hyclate (Doxycycline Hyclate) 100 Mg Capsule, (Reported) Discontinued Reason: No Longer Taking Entered as Reported by: YEYO PANTOJA on 01/02/201432 Last Action: Discontinued Oxycodone Hcl (Oxyir Tablet) 5 Mg Tablet, (Reported) Discontinued Reason: No Longer Taking Entered as Reported by: YEYO PANTOJA on 01/02/201432 Last Action: Discontinued Pantoprazole Sodium (Pantoprazole Sodium) 40 Mg Tablet., (Reported) Discontinued Reason: No Longer Taking Entered as Reported by: YEYO PANTOJA on 01/02/201432 Last Action: Discontinued Review of Systems Constitutional: see HPI EENTM: no symptoms reported Respiratory: no symptoms reported Cardiovascular: no symptoms reported Gastrointestinal: no symptoms reported Genitourinary: no symptoms reported Musculoskeletal: neck pain Skin: no symptoms reported Psychiatric/Neurological: Headache; Denies Paresthesia, Denies Weakness (KIRBY RUSH MD) Past [id number] Hx Patient Social History Tobacco Use?: No Substance use?: Yes Substance type: Marijuana Alcohol Use?: Yes Alcohol Frequency: Once in a while Pt feels they are or have been: No (KIRBY RUSH MD) Immunizations Up To Date Tetanus Booster (TDap): Less than 5yrs First/Initial COVID19 Vaccinat: na (KIRBY RUSH MD) Seasonal Allergies Seasonal Allergies: No (KIRBY RUSH MD) Past Medical History Surgery/Hospitalization HX: laryngeal ca, layngectomy, copd, gerd, hep c, fibromyalgia, anxiety, r hemicolectomy, cholecystectomy, r leg manuel, neck fusion, t/a, tracheostomy Surgeries: Yes (R HEMICOLECTOMY, LAP TRIIN, MANUEL IN LEG, NECK FUSION) Adenoidectomy, Appendectomy, Bowel Surgery, Tonsillectomy, Tracheostomy Respiratory: Yes (TOBACCOISM) COPD Cardiac: No Neurological: No Reproductive Disorders: No Genitourinary: No Gastrointestinal: Yes (HEP C, ADENOMATOUS POLYP ASCENDING COLON) Gastroesophageal Reflux, Hepatitis, Polyps Musculoskeletal: Yes (LUMBAR STENOSIS, CARPAL TUNNEL, ) Fibromyalgia Endocrine: No HEENT: No Cancer: Yes (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, MALIGNANT MELANOMA) Melanoma, Oral Did You Recieve Any Treatments: Yes What Type of Treatment Did You: Radiation Psychosocial: Yes Anxiety Integumentary: No Blood Disorders: No Adverse Reaction/Blood Tranf: No (KIRBY RUSH MD) Family Medical History Family history: Cardiovascular disease 19 FATHER Family history: Hypertension 19 MOTHER Physical Exam Vital Signs Vital Signs - First Documented 02/26/23 05:14 Temp 37.1 Pulse 80 Resp 16 B/P (MAP) 150/92 (111) Pulse Ox 97 O2 Delivery Room Air (ALICIA,ARABELLA K DO) Vital Signs Capillary Refill : Less Than 3 Seconds (KIRBY RUSH MD) Height, Weight, BMI Height: 5'6.00" Weight: 171lbs. 5.0oz. 77.557439ew; 28.00 BMI Method:Stated General Appearance: No Apparent Distress, WD/WN HEENT: PERRL/EOMI Neck: Non Tender, Limited Range of Motion (cervical spine - chronic) Cardiovascular: Regular Rate, Rhythm Respiratory: Lungs Clear, Normal Breath Sounds, No Accessory Muscle Use, No Respiratory Distress Extremity: Normal Inspection, Normal Range of Motion Neurologic/Psychiatric: Alert, Oriented x3, No Motor/Sensory Deficits, Normal Mood/Affect, pound keeper II-XII Norm as Tested; No Motor Weakness; Sensory Deficit (chronic sensory deficit right hand due to surgery for laryngeal cancer (chronic)), Other (1+ biceps reflex right; unable to elicit left.) Skin: Normal Color, Warm/Dry (KIRBY RUSH MD) Progress/Results/Core Measures Results/Orders Vital Signs/I&O 02/26/23 05:14 Temp 37.1 Pulse 80 Resp 16 B/P (MAP) 150/92 (111) Pulse Ox 97 O2 Delivery Room Air (ARABELLA AVILA DO) Blood Pressure Mean: 111 Progress Progress Note : Time: 05:55 Progress Note care passed to Dr Avila at shift change; CT cervical spine pending (KIRBY RUSH MD) Progress Note : Progress Note 0600--ASSUMED CARE OF PT, CT PENDING. (ARABELLA AVILA DO) Diagnostic Imaging Comments CT CERVICAL SPINE--PER RADIOLOGIST AT [address] soft tissue neck 07/29/2019. FINDINGS: The C4 partial corpectomy and multilevel ACDF C3-C6 unchanged in appearance from previous exam. The alignment across, above and below the fusion moiety appeared anatomic. No findings of hardware disruption. No facet dislocation. There is extensive beam hardening artifact from the surgical changes distorting portions of the spinal canal most notably near the C4-C5 endplate articulation. No fracture identified. No paravertebral hemorrhage. The postsurgical changes to the larynx noted. No visible mass at this noncontrasted enhanced exam protocoled for optimal bony evaluation. IMPRESSION: No interval change in extensive postsurgical and degenerative changes. No acute finding revealed. Reviewed: Reviewed by Me (ARABELLA AVILA DO) Departure Impression Primary Impression: Chronic neck pain Disposition: 01 HOME, SELF-CARE Condition: Stable Departure-Patient Inst. Decision time for Depature: 07:10 (ARABELLA AVILA DO) Referrals: HALLIE CORTEZ MD (PCP/Family) Primary Care Physician Patient Instructions: CHRONIC PAIN, Generalized Neck Pain (DC) Add. Discharge Instructions: CONTINUE YOUR REGULAR MEDICATIONS PRESCRIBED FOLLOW UP WITH YOUR REGULAR DR OR YOUR SPINE SURGEON THIS WEEK FOR FURTHER CARE--CALL IN THE MORNING TO SCHEDULE AN APPOINTMENT All discharge instructions reviewed with patient and/or family. Voiced understanding. Scripts Lidocaine (Lidocaine 5% Patch) 5 % Adh..patch 1 EACH TP Q12H PRN for Neuropathic pain MDD 2, #10 PATCH 2 patches max for 12 hours, then 12 hours patch-free period. Prov: ARABELLA AVILA DO 02/26/23 Methylprednisolone (Medrol) 4 Mg Tab.ds.pk 4 MG PO UD for 6 Days, #21 PKG PER DOSE PACK INSTRUCTIONS Prov: ARABELLA AVILA DO 02/26/23 KIRBY RUSH MD Feb 26, 2023 05:53 ARABELLA AVILA DO Feb 26, 2023 06:26
--- NOTE | 2023-02-26 06:54 | Diagnostic Imaging Report ---
PROCEDURE: CT cervical spine without contrast. TECHNIQUE: Multiple contiguous axial images were obtained through the cervical spine without the use of intravenous contrast. Sagittal and coronal reformations were then performed. Auto Exposure Controls were utilized during the CT exam to meet ALARA standards for radiation dose reduction. INDICATION: Worsening neck pain. Correlated with CT soft tissue neck 07/29/2019. FINDINGS: The C4 partial corpectomy and multilevel ACDF C3-C6 unchanged in appearance from previous exam. The alignment across, above and below the fusion moiety appeared anatomic. No findings of hardware disruption. No facet dislocation. There is extensive beam hardening artifact from the surgical changes distorting portions of the spinal canal most notably near the C4-C5 endplate articulation. No fracture identified. No paravertebral hemorrhage. The postsurgical changes to the larynx noted. No visible mass at this noncontrasted enhanced exam protocoled for optimal bony evaluation. IMPRESSION: No interval change in extensive postsurgical and degenerative changes. No acute finding revealed. Dictated by: Dictated on workstation # [id number]
[2023-02-26] MEDS ORDERED: LIDO700A45 TP (07:14)
[2023-02-26] MEDS ORDERED: METH4TAB PO (07:14)
[2023-02-26 07:20] VITALS: BP 145/88
== END 2023-02-26 07:20 | disposition home or self-care (01) ==
LOC: EDUNIT# 05:14 → ER 05:18
DX: M54.2 Cervicalgia (principal); G89.29 Other chronic pain; Z98.890 Other specified postprocedural states; Z28.310 Unvaccinated for COVID-19
CPT/HCPCS: 72125